=== PATIENT | female | born 1955 | race Caucasian/White ===

== ENCOUNTER → 2021-04-14 14:32 | Outpatient (CLI) | payer MEDICARE, SELFPAY ==
[2021-04-14 14:34] LABS: Bacteria 0 SEEN /hpf (None Seen); Mucous, Urine 0 SEEN /hpf (<or=2+); Red Blood Cells-Urine 0 SEEN /hpf (0-5); Squamous Epithelial Cells - UA 0 SEEN /hpf (5-10); White Blood Cells 0 SEEN /hpf (0-5)
[2021-04-14 16:47] LABS: Absolute Lymphocyte Count 1.05 X10^3/uL (0.83-4.51); Absolute Neutrophil Count 4.7 X10^3/uL (2.0-7.7); Basophil# 0.04 X10^3/uL; Basophil% 0.6 % (0-1); Eosinophil# 0.06 X10^3/uL; Eosinophils% 0.9 % (0-5); Hematocrit 39.9 % (37-47); Lymphocyte # 1.05 X10^3/ul (0.83-4.51); Lymphocyte % 16.5 % (19-41); Mean Corp Hgb Conc 32.6 g/dL (32-36); Mean Corpuscular Hgb 30.2 pg (27.0-32.0); Mean Corpuscular Volume 92.6 fL (81-99); Mean Platelet Vol. 11.7 fl (6.2-12.0); Monocyte# 0.51 X10^3/uL; NRBC Flagged by Analyzer 0 % (0-5); Neutrophil # 4.68 X10^3/uL (2.7-7.7); Neutrophil % 73.7 % (47-70); Platelet Count 275 K/mm3 (150-450); RBC Distribution Width CV 14.3 % (11.6-14.6); RBC Distribution Width SD 49.1 fl (35.1-43.9); Red Blood Count 4.31 M/mm3 (4.2-5.4); White Blood Count 6.4 K/mm3 (4.4-11.0)
[2021-04-14 16:50] LABS: Color, Urine Yellow (Yellow); Glucose, Dipstick Normal (Normal); Ketone-Dipstick Negative (Negative); Leukocyte Esterase-Dipstick Negative /ul (Negative); Nitrite-Dipstick Negative (Negative); Occult Blood-Urine Negative /ul (Negative); Protein-Dipstick Negative (Negative); Urine Bilirubin Dipstick Negative (Negative); Urine Clarity Clear (Clear); Urine Urobilinogen Normal (Normal); Urine pH 6.5 (5.0 - 8.0)
[2021-04-14 17:25] LABS: ALB/GLOB Ratio 1.3 RATIO (0.9-2.4); AST(SGOT) 18 U/L (15-37); Alanine Aminotransfer ALT/SGPT 28 U/L (13-56); Albumin, Serum 3.9 g/dL (3.2-5.0); Alkaline Phosphatase 100 U/L (45-117); Anion Gap 4 (5-15); BUN 15 mg/dL (7-18); Calcium,Total 8.9 mg/dL (8.5-10.1); Chloride 106 mmol/L (98-107); Creatinine, Serum 0.94 mg/dL (0.55-1.02); EST Glomerular Filtration Rate 63 mL/min (>60); Est Glom Filt Rate - Afr Amer 77 mL/min (>60); Globulin 3.1 g/dL (2.2-4.2); Glucose 123 mg/dL (74-106); Potassium 3.8 mmol/L (3.5-5.1); Sodium Level 139 mmol/L (136-145); Thyroid Stim Hormone (TSH) 0.29 uIU/mL (0.358-3.74)
[2021-04-14 17:26] LABS: Vitamin D,25 Hydroxy 60.8 ng/mL
== END ==
PROVIDERS: PCP Internal Medicine; Visit Provider Physician Assistant
DX: Z13.29 Encounter for screening for other suspected endocrine disorder (principal); K57.92 Diverticulitis of intestine, part unspecified, without perforation or abscess without bleeding; M85.80 Other specified disorders of bone density and structure, unspecified site; E56.9 Vitamin deficiency, unspecified; R53.83 Other fatigue; R10.9 Unspecified abdominal pain
CPT/HCPCS: 36415; 80053; 81001; 82306; 84443; 85025

== ENCOUNTER → 2021-05-13 11:18 | Outpatient (CLI) | payer MEDICARE, SELFPAY ==
[2021-05-13 13:04] LABS: Free T3 2.5 pg/mL (2.18-3.98); T4 Free Direct 1.43 ng/dL (0.76-1.46); Thyroid Stim Hormone (TSH) 0.34 uIU/mL (0.358-3.74)
== END ==
PROVIDERS: PCP Internal Medicine; Referring Provider Physician Assistant; Visit Provider Physician Assistant
DX: R79.89 Other specified abnormal findings of blood chemistry (principal); R53.83 Other fatigue
CPT/HCPCS: 36415; 84439; 84443; 84481

== ENCOUNTER 2021-07-16 15:20 | Outpatient (CLI) | payer MEDICARE, SELFPAY ==
--- NOTE | 2021-07-16 15:22 | BI_ITS ---
MAMMOGRAPHY - BILATERAL SCREENING REASON FOR EXAM: Female, 66 years old. Routine annual screening examination. PERTINENT HISTORY: Mother with breast cancer. Aunt with breast cancer. TECHNIQUE: Digital bilateral breast rohan (3D mammographic acquisition) in the CC and MLO projections. 2-D mediolateral oblique (MLO) and craniocaudad (CC) views of both breasts were obtained. CAD: Full Field Digital Mammography with Computer Added Detection was performed. COMPARISON: Comparison is made with prior abdomen examination dated 06/20/2020. FINDINGS: Breast Composition: The breasts are extremely dense, which lowers the sensitivity of mammography. There are no dominant masses or suspicious calcifications. No other significant abnormalities are identified. There has been no significant change since the prior study. BI/SCRN MAMM (CAD)W/ROHAN BILAT IMPRESSION: Stable bilateral screening mammogram. Yearly follow-up mammogram recommended. (A) ASSESSMENT CATEGORY: BIRADS Category 1: Negative. A letter regarding these results will be sent to the patient by the facility within 30 days. Approximately 10% of breast cancers are not detected by mammography. A normal mammogram should not delay biopsy of a clinically suspicious abnormality. [id number] Electronically Signed: Feroz Sears MD at 14:44 EST ,
== END 2021-07-16 23:59 | disposition home or self-care (01) ==
LOC: OPBI 15:20
PROVIDERS: PCP Internal Medicine; Referring Provider Physician Assistant; Visit Provider Physician Assistant
DX: Z12.31 Encounter for screening mammogram for malignant neoplasm of breast (principal); Z80.3 Family history of malignant neoplasm of breast
CPT/HCPCS: 77063; 77067

== ENCOUNTER 2021-08-05 09:50 | Outpatient (CLI) | payer MEDICARE, SELFPAY ==
--- NOTE | 2021-08-05 09:55 | EKG12_ITS ---
Test Reason : PRE OP Blood Pressure : / mmHG Vent. Rate : 070 BPM Atrial Rate : 070 BPM P-R Int : 110 ms QRS Dur : 064 ms QT Int : 388 ms P-R-T Axes : 072 -16 068 degrees QTc Int : 419 ms Sinus rhythm with short MD Biatrial enlargement Abnormal ECG Confirmed by KAY BURNHAM, CAESAR ([id number]), senior editor ELIA PATHAK ([id number]) on 08/07/2021 1:16:49 PM Referred By: Cassandra Garcia Confirmed By:CAESAR VILLANUEVA MD
== END 2021-08-05 23:59 | disposition home or self-care (01) ==
LOC: PSN 09:53
PROVIDERS: PCP Internal Medicine; Referring Provider Physician Assistant; Visit Provider Physician Assistant
DX: F41.9 Anxiety disorder, unspecified (principal); F32.A Depression, unspecified; R00.2 Palpitations; R03.0 Elevated blood-pressure reading, without diagnosis of hypertension
CPT/HCPCS: 93005

== ENCOUNTER 2021-09-03 13:51 | Outpatient (CLI) | payer MEDICARE, SELFPAY ==
--- NOTE | 2021-09-03 13:53 | ECHOD_ITS ---
Reason For Study: HTN, Abn EKG Procedure This was a 2D Doppler, Color Flow transthoracic echocardiogram. Patient refused IV for bubble study. Exam performed in department. Left Ventricle Normal left ventricle. Left ventricular systolic function is normal. The estimated ejection fraction is 65 %. Stage 1 diastolic dysfunction. No regional wall motion abnormalities noted. Right Ventricle Normal RV size. Normal systolic function. Atria Normal left atrium. Normal right atrium. Mitral Valve Normal mitral valve. Tricuspid Valve Normal tricuspid valve. Aortic Valve Trisinus/trileaflet aortic valve. Normal aortic valve. Pulmonic Valve Normal pulmonic valve. Great Vessels Normal aortic root. The pulmonary artery is normal size. Normal inferior vena cava. Pericardium/Pleural No pericardial effusion. MMode/2D Measurements & Calculations LVIDd: 4.1 cm IVSd: 0.87 cm Ao root diam: 2.7 cm LVIDs: 2.3 cm LVPWd: 0.85 cm RVDd: 2.8 cm FS: 45.6 % LAV(MOD-bp): 37.6 ml LVAd ap4: 16.5 cm2 SV(MOD-sp4): 27.2 ml LAV(MOD-bp) Indexed: 24.7 ml/m2 LVLd ap4: 5.6 cm LAV(MOD-sp2): 36.7 ml EDV(MOD-sp4): 41.4 ml LAV(MOD-sp4): 36.8 ml EDV(sp4-el): 41.7 ml LVAs ap4: 8.6 cm2 LVLs ap4: 4.6 cm ESV(MOD-sp4): 14.1 ml ESV(sp4-el): 13.7 ml EF(MOD-sp4): 65.8 % EF(sp4-el): 67.1 % SV(sp4-el): 27.9 ml LA A4 area: 14.6 cm2 LA dimension(2D): 3.2 cm RA A4 area: 11.4 cm2 Doppler Measurements & Calculations MV E max d[place]: 61.5 cm/sec Lat Peak E' [place]: 5.8 cm/sec Med Peak E' [place]: 4.8 cm/sec MV A max [place]: 120.2 cm/sec E/E' lat: 10.6 E/E' med: 12.7 MV E/A: 0.51 Ao V2 max: 144.9 cm/sec LV V1 max: 119.7 cm/sec PA V2 max: 111.7 cm/sec Ao max P.4 mmHg LV V1 max P.7 mmHg Ao V2 mean: 97.8 cm/sec Ao mean P.2 mmHg Ao V2 VTI: 29.9 cm PI end-d dallas: 65.5 cm/sec TR max d[place]: 251.8 cm/sec TR max P.4 mmHg ECHO/Echo Complete Interpretation Summary Normal left ventricle. Left ventricular systolic function is normal. The estimated ejection fraction is 65 %. Stage 1 diastolic dysfunction. Structurally normal valves. Ordering Physician: Cassandra Garcia Referring Physician: Laura Boswell Performed By: Julia Perry, ALY, RVT
== END 2021-09-03 23:59 | disposition home or self-care (01) ==
LOC: CVS 13:52
PROVIDERS: PCP Internal Medicine; Referring Provider Physician Assistant; Visit Provider Physician Assistant
DX: I10 Essential (primary) hypertension (principal); R94.31 Abnormal electrocardiogram [ECG] [EKG]
CPT/HCPCS: 93306

== ENCOUNTER 2021-09-11 10:59 | Outpatient (CLI) | payer MEDICARE, SELFPAY ==
[2021-09-11 12:40] LABS: Free T3 2.7 pg/mL (2.18-3.98); T4 Free Direct 1.43 ng/dL (0.76-1.46); Thyroid Stim Hormone (TSH) 0.33 uIU/mL (0.358-3.74)
== END 2021-09-11 23:59 | disposition home or self-care (01) ==
LOC: BIMLAB 11:00
PROVIDERS: PCP Internal Medicine; Referring Provider Physician Assistant; Visit Provider Physician Assistant
DX: I10 Essential (primary) hypertension (principal); R94.6 Abnormal results of thyroid function studies
CPT/HCPCS: 36415; 84439; 84443; 84481

== ENCOUNTER → 2021-11-21 | Outpatient (CLI) | payer MEDICARE, SELFPAY ==
--- NOTE | 2021-11-21 12:43 | STRESSREP_ITS ---
Stress Test Report Date: 11-21-2021 Procedure: Exercise tolerance test Indications: Chest pain; palpitations Consent: Per the patient Procedure: The patient exercised on a Heraclio protocol for 6 minutes completing Stage II achieving a peak heart rate of 134 bpm (87% predicted maximal heart rate) with a peak blood pressure 160/66 mmHg and a peak MET capacity of approximately 7 MET's. The baseline ECG demonstrated normal sinus rhythm. The peak exercise ECG demonstrated approximately 0.[address] segment depression in leads II, III, aVF, and V4 through V6 with resolution towards baseline in recovery. There was an isolated PVC during recovery. The functional capacity was considered good. The patient had no complaint of chest discomfort during exercise or recovery. The examination was discontinued secondary to dyspnea. Impression: 1. Technically adequate (percent predicted maximal heart rate greater than 85%) exercise tolerance test 2. Peak exercise ECG with with approximately 0.[address] segment depression in leads II, III, aVF, and V4 through V6 with resolution towards baseline in recovery 3. There was an isolated PVC during recovery This note was generated with [employer] software. It may contain incorrect words, spelling, and punctuation that were not noted in checking the note before signing.
== END | disposition home or self-care (01) ==
LOC: CVS 09:44
PROVIDERS: PCP Internal Medicine; Referring Provider Internal Medicine Cardiovascular Disease; Visit Provider Internal Medicine Cardiovascular Disease
DX: R94.31 Abnormal electrocardiogram [ECG] [EKG] (principal); R07.9 Chest pain, unspecified; R00.2 Palpitations; I10 Essential (primary) hypertension
CPT/HCPCS: 93017

== ENCOUNTER → 2021-11-24 | Outpatient (CLI) | payer MEDICARE, SELFPAY | END | disposition home or self-care (01) | LOC: PSN 08:21 | PROVIDERS: PCP Internal Medicine; Referring Provider Internal Medicine Cardiovascular Disease; Visit Provider Internal Medicine Cardiovascular Disease | DX: R07.9 Chest pain, unspecified (principal); R00.2 Palpitations; R94.31 Abnormal electrocardiogram [ECG] [EKG]; I10 Essential (primary) hypertension | CPT/HCPCS: 93225; 93226 ==

== ENCOUNTER → 2021-11-25 | Outpatient (CLI) | payer MEDICARE, SELFPAY ==
[2021-11-25 12:57] LABS: HIV - WCH Non-Reactive (Nonreactive); Syphilis Antibodies Non-reactive
[2021-11-26 11:08] LABS: HEPATITIS B SURFACE AG Negative (Negative); Hepatitis B Core Ab Total Negative (Negative); Hepatitis C Ab 0.1 s/co ratio (0.0-0.9)
[2021-11-27 18:16] LABS: HSV 1 IgG < 0.91 index (0.00-0.90); HSV 2 IgG < 0.91 index (0.00-0.90); Hep B Surface Antibodies Non Reactive (.)
== END | disposition home or self-care (01) ==
LOC: BIMLAB 10:36
PROVIDERS: PCP Internal Medicine; Visit Provider Physician Assistant
DX: Z20.6 Contact with and (suspected) exposure to human immunodeficiency virus [HIV] (principal); Z20.2 Contact with and (suspected) exposure to infections with a predominantly sexual mode of transmission; Z11.3 Encounter for screening for infections with a predominantly sexual mode of transmission
CPT/HCPCS: 36415; 86695; 86696; 86703; 86704; 86705; 86706; 86707; 86780; 86803; 87340; 87350

== ENCOUNTER → 2022-01-30 | Outpatient (CLI) | payer MEDICARE, SELFPAY | END | disposition home or self-care (01) | LOC: LABSPEC 15:41 | PROVIDERS: PCP Internal Medicine; Referring Provider Physician Assistant; Visit Provider Physician Assistant | DX: R19.7 Diarrhea, unspecified (principal) | CPT/HCPCS: 87635; U0003; U0005 ==

== ENCOUNTER → 2022-02-02 | Outpatient (CLI) | payer MEDICARE, SELFPAY | END | disposition home or self-care (01) | LOC: LABSPEC 08:48 | PROVIDERS: PCP Internal Medicine; Referring Provider Physician Assistant; Visit Provider Physician Assistant | DX: R19.7 Diarrhea, unspecified (principal) | CPT/HCPCS: 82274; 83630; 87493; 87506 ==

== ENCOUNTER → 2022-03-13 | Outpatient (CLI) | payer MEDICARE, SELFPAY | END | disposition home or self-care (01) | PROVIDERS: PCP Internal Medicine; Referring Provider Physician Assistant; Visit Provider Physician Assistant | DX: K58.0 Irritable bowel syndrome with diarrhea (principal); Z86.19 Personal history of other infectious and parasitic diseases | CPT/HCPCS: 82274; 83630; 87493 ==

== ENCOUNTER → 2022-05-20 | Outpatient (CLI) | payer MEDICARE, SELFPAY ==
--- NOTE | 2022-05-20 09:57 | BD_ITS ---
STUDY: DUAL ENERGY X-RAY ABSORPTIOMETRY / DXA REASON FOR EXAM: Female, 67 years old. Screening for osteoporosis TECHNIQUE: Bone Mineral Density (BMD) measurements of lumbar spine and bilateral hips were obtained. COMPARISON: None. FINDINGS: Lumbar Spine (L1-L4): g/cm2 (0.785) / T-score (-2.4) / Z-score (-0.4) Findings are suggestive of osteopenia with a high fracture risk. Left Femur Total: g/cm2 (0.662) / T-score (-2.3) / Z-score (-0.9) Left Femoral Neck: g/cm2 (0.578) / T-score (-2.4) / Z-score (-0.8) Right Femur Total: g/cm2 (0.674) / T-score (-2.2) / Z-score (-0.8) Right Femoral Neck: g/cm2 (0.537) / T-score (-2.8) / Z-score (-1.1) BD/Dexa Bone Density Study IMPRESSION: The patient is considered osteoporotic as outlined below according to World Flash Organization (WHO) criteria with a high fracture risk. Reference Information: The T-score is the number of standard deviations above or below the standard which is normal for young adults at their peak bone mineral density. The World Health Organization (WHO) interprets the T-scores as follows: Above -1 Normal bone density Between -1 and -2.5 Osteopenia Equal to / or below -2.5 Osteoporosis As a practical clinical guideline, osteopenia may be graded as follows: Mild -1 through -1.5 Moderate -1.6 through -2.0 Severe -2.1 through -2.4 The Z-score is the number of standard deviations above or below age-matched controls. A Z-score of less than -1.5 would be considered abnormal. References: 1. NIH Osteoporosis and Related Bone Diseases www osteo.org 2. International Society for Clinical Densitometry www iscd.org 3. National Osteoporosis Foundation www nof.org Electronically Signed: Feroz Sears MD at 10:51 EST ,
== END | disposition home or self-care (01) ==
LOC: OPBD 09:50
PROVIDERS: PCP Physician Assistant; Visit Provider Physician Assistant
DX: Z78.0 Asymptomatic menopausal state (principal); M81.0 Age-related osteoporosis without current pathological fracture
CPT/HCPCS: 77080

== ENCOUNTER → 2022-05-20 | Outpatient (CLI) | payer MEDICARE, SELFPAY | END | disposition home or self-care (01) | LOC: OPBD 09:46 | PROVIDERS: PCP Physician Assistant; Visit Provider Physician Assistant | DX: Z00.00 Encounter for general adult medical examination without abnormal findings (principal) ==

== ENCOUNTER → 2022-05-21 | Outpatient (CLI) | payer MEDICARE, SELFPAY | END | disposition home or self-care (01) | LOC: LABSPEC 10:55 | PROVIDERS: PCP Physician Assistant; Referring Provider Physician Assistant; Visit Provider Physician Assistant | DX: R68.89 Other general symptoms and signs (principal); Z20.822 Contact with and (suspected) exposure to COVID-19 | CPT/HCPCS: 87635; U0003; U0005 ==

== ENCOUNTER → 2022-07-02 | Outpatient (CLI) | payer MEDICARE, SELFPAY ==
[2022-07-02 12:23] LABS: Absolute Lymphocyte Count 1.21 X10^3/uL (0.83-4.51); Absolute Neutrophil Count 3.5 X10^3/uL (2.0-7.7); Basophil# 0.06 X10^3/uL; Basophil% 1.1 % (0-1); Eosinophil# 0.21 X10^3/uL; Eosinophils% 3.8 % (0-5); Hematocrit 43.3 % (37-47); Lymphocyte # 1.21 X10^3/ul (0.83-4.51); Lymphocyte % 21.7 % (19-41); Mean Corp Hgb Conc 32.3 g/dL (32-36); Mean Corpuscular Hgb 30.7 pg (27.0-32.0); Mean Platelet Vol. 11.5 fl (6.2-12.0); Monocyte# 0.54 X10^3/uL; Monocyte% 9.7 % (0-10); NRBC Flagged by Analyzer 0 % (0-5); Neutrophil # 3.52 X10^3/uL (2.7-7.7); Neutrophil % 63.2 % (47-70); Platelet Count 252 K/mm3 (150-450); RBC Distribution Width CV 12.9 % (11.6-14.6); Red Blood Count 4.56 M/mm3 (4.2-5.4); White Blood Count 5.6 K/mm3 (4.4-11.0)
[2022-07-02 13:42] LABS: ALB/GLOB Ratio 1.3 RATIO (0.9-2.4); AST(SGOT) 25 U/L (15-37); Alanine Aminotransfer ALT/SGPT 29 U/L (13-56); Albumin, Serum 4.2 g/dL (3.2-5.0); Alkaline Phosphatase 101 U/L (45-117); Anion Gap 10 (5-15); BUN 13 mg/dL (7-18); BUN/Creat Ratio 15.8 RATIO (10-20); Calcium,Total 9.5 mg/dL (8.5-10.1); Chloride 102 mmol/L (98-107); Cholesterol 198 mg/dL (200); Creatinine, Serum 0.82 mg/dL (0.55-1.02); EST Glomerular Filtration Rate 73 mL/min (>60); Est Glom Filt Rate - Afr Amer 88 mL/min (>60); Globulin 3.2 g/dL (2.2-4.2); Glucose 94 mg/dL (74-106); High Density Lipoprotein 107 mg/dL; Potassium 3.7 mmol/L (3.5-5.1); Protein, Total 7.4 g/dL (6.4-8.2); Sodium Level 141 mmol/L (136-145); T4 Free Direct 1.44 ng/dL (0.76-1.46); Thyroid Stim Hormone (TSH) 0.49 uIU/mL (0.358-3.74); Triglycerides 114 mg/dL; Very Low Density Lipoprotein 23 mg/dL (5-40)
== END | disposition home or self-care (01) ==
LOC: BIMLAB 10:33
PROVIDERS: PCP Physician Assistant; Referring Provider Physician Assistant; Visit Provider Physician Assistant
DX: I10 Essential (primary) hypertension (principal); E55.9 Vitamin D deficiency, unspecified; M81.0 Age-related osteoporosis without current pathological fracture
CPT/HCPCS: 36415; 80053; 80061; 82306; 84439; 84443; 85025

== ENCOUNTER → 2022-07-20 | Outpatient (CLI) | payer MEDICARE, SELFPAY ==
--- NOTE | 2022-07-20 11:01 | BI_ITS ---
MAMMOGRAPHY - BILATERAL SCREENING REASON FOR EXAM: Female, 67 years old. Routine annual screening examination. PERTINENT HISTORY: Mother with breast cancer. Aunt with breast cancer. TECHNIQUE: Digital bilateral breast rohan (3D mammographic acquisition) in the CC and MLO projections. 2-D mediolateral oblique (MLO) and craniocaudad (CC) views of both breasts were obtained. CAD: Full Field Digital Mammography with Computer Added Detection was performed. COMPARISON: Comparison is made with prior study dated 07/16/2021. FINDINGS: Breast Composition: The breasts are extremely dense, which lowers the sensitivity of mammography. There are no dominant masses or suspicious calcifications. No other significant abnormalities are identified. There has been no significant change since the prior study. BI/SCRN MAMM (CAD)W/ROHAN BILAT IMPRESSION: Stable bilateral screening mammogram. Yearly follow-up mammogram recommended. (A) ASSESSMENT CATEGORY: BIRADS Category 1: Negative. A letter regarding these results will be sent to the patient by the facility within 30 days. Approximately 10% of breast cancers are not detected by mammography. A normal mammogram should not delay biopsy of a clinically suspicious abnormality. [id number] Electronically Signed: Feroz Sears MD at 12:22 EST ,
== END | disposition home or self-care (01) ==
PROVIDERS: PCP Physician Assistant; Referring Provider Physician Assistant; Visit Provider Physician Assistant
DX: Z12.31 Encounter for screening mammogram for malignant neoplasm of breast (principal)
CPT/HCPCS: 77063; 77067

== ENCOUNTER → 2022-12-10 | Outpatient (CLI) | payer MEDICARE, SELFPAY ==
[2022-12-10 10:39] LABS: Bacteria 0 SEEN /hpf (None Seen); Mucous, Urine 0 SEEN /hpf (<or=2+); Red Blood Cells-Urine 0 SEEN /hpf (0-5); Squamous Epithelial Cells - UA 0 SEEN /hpf (5-10); White Blood Cells 0 SEEN /hpf (0-5)
[2022-12-10 12:10] LABS: Absolute Lymphocyte Count 0.85 X10^3/uL (0.83-4.51); Absolute Neutrophil Count 4.8 X10^3/uL (2.0-7.7); Basophil# 0.03 X10^3/uL; Basophil% 0.5 % (0-1); Eosinophil# 0.09 X10^3/uL; Eosinophils% 1.4 % (0-5); Hematocrit 40.5 % (37-47); Hemoglobin 13.6 g/dL (12.0-15.0); Lymphocyte # 0.85 X10^3/ul (0.83-4.51); Lymphocyte % 12.9 % (19-41); Mean Corp Hgb Conc 33.6 g/dL (32-36); Mean Corpuscular Hgb 31.6 pg (27.0-32.0); Mean Corpuscular Volume 94.2 fL (81-99); Mean Platelet Vol. 11.1 fl (6.2-12.0); Monocyte# 0.86 X10^3/uL; NRBC Flagged by Analyzer 0 % (0-5); Neutrophil # 4.75 X10^3/uL (2.7-7.7); Neutrophil % 71.9 % (47-70); Platelet Count 284 K/mm3 (150-450); RBC Distribution Width CV 12.4 % (11.6-14.6); RBC Distribution Width SD 43.3 fl (35.1-43.9); White Blood Count 6.6 K/mm3 (4.4-11.0)
[2022-12-10 12:12] LABS: Color, Urine Yellow (Yellow); Glucose, Dipstick Normal (Normal); Ketone-Dipstick 5 mg/dl (Negative); Leukocyte Esterase-Dipstick Negative /ul (Negative); Nitrite-Dipstick Negative (Negative); Occult Blood-Urine Negative /ul (Negative); Protein-Dipstick 15 mg/dl (Negative); Urine Bilirubin Dipstick Negative (Negative); Urine Clarity Sl. Cloudy (Clear); Urine Urobilinogen Normal (Normal)
[2022-12-10 12:47] LABS: AST(SGOT) 26 U/L (15-37); Alanine Aminotransfer ALT/SGPT 31 U/L (13-56); Albumin, Serum 3.8 g/dL (3.2-5.0); Alkaline Phosphatase 94 U/L (45-117); Anion Gap 7 (5-15); BUN 11 mg/dL (7-18); Calcium,Total 9.8 mg/dL (8.5-10.1); Chloride 104 mmol/L (98-107); Creatinine, Serum 0.79 mg/dL (0.55-1.02); EST Glomerular Filtration Rate 77 mL/min (>60); Est Glom Filt Rate - Afr Amer 93 mL/min (>60); Globulin 3.9 g/dL (2.2-4.2); Glucose 124 mg/dL (74-106); Potassium 3.9 mmol/L (3.5-5.1); Protein, Total 7.7 g/dL (6.4-8.2); Sodium Level 140 mmol/L (136-145)
== END | disposition home or self-care (01) ==
LOC: BIMLAB 10:39
PROVIDERS: PCP Internal Medicine; Referring Provider Internal Medicine; Visit Provider Internal Medicine
DX: R10.84 Generalized abdominal pain (principal)
CPT/HCPCS: 36415; 80053; 81001; 85025

== ENCOUNTER 2022-12-26 06:23 | Observation (INO) | payer MEDICARE, SELFPAY ==
[2022-12-26] VITALS (11 sets, daily range): BP systolic 144–190; BP diastolic 46–64; PULSE 90–107; RESP 15–20; TEMP 37.1–38.3; O2SAT 90–98; BMI 23.1; BMI 22.9
--- NOTE | 2022-12-26 07:15 | RAD_ITS ---
HISTORY: cough. TECHNIQUE: XR Chest 1 View. COMPARISON: None. FINDINGS: CARDIOMEDIASTINAL BORDERS: Cardiac silhouette within normal limits in size. Mediastinal contour unremarkable with calcification of the aortic knob. LUNGS: Radiographically clear. PLEURA: No pleural effusion or pneumothorax seen. OSSEOUS STRUCTURES: Mild degenerative change. RAD/Chest 1 View (Portable) IMPRESSION: No acute cardiopulmonary process identified. Electronically Signed: Elizabeth Irwin MD at 8:20 EDT ,
--- NOTE | 2022-12-26 07:15 | EKG12_ITS ---
Test Reason : GEN ILLNESS Blood Pressure : / mmHG Vent. Rate : 105 BPM Atrial Rate : 105 BPM P-R Int : 124 ms QRS Dur : 074 ms QT Int : 342 ms P-R-T Axes : 076 -19 069 degrees QTc Int : 452 ms Sinus tachycardia Right atrial enlargement Borderline ECG Confirmed by KAY BURNHAM, CAESAR ([id number]), technical editor ELIA PATHAK ([id number]) on 12/28/2022 12:30:42 PM Referred By: Confirmed By:CAESAR VILLANUEVA MD
--- NOTE | 2022-12-26 07:18 | EX.ED.DYSGE1 ---
HPI History of Present Illness Chief Complaint: General Illness Narrative Narrative: 67-year-old female presenting with fever, chills, myalgias, cough. She states its been going on since which is 3 to 4 days. Patient states that she does feel short of breath and does have a cough. Patient with recent travel to [facility] this last week. She states that prior to going she had some GI issues but was not this sick. She does not have any chest pain. She has a history of hypertension, asthma, anxiety. Patient denies any abdominal pain but has been having a lot of vomiting. She is unable to hold on her meds. She has not had any urinary complaints. [facility] Medical History Abnormal EKG Anxiety and depression Asthma C. difficile colitis Diverticulitis Essential hypertension GI bleed Skin cancer Home Medications calcium carbonate 600 mg calcium (1,500 mg) tablet (Calcium) 600 mg PO DAILY 02/25/21 [History Last Taken Unknown] cholecalciferol (vitamin D3) 25 mcg (1,000 unit) capsule 4,000 unit PO DAILY 11/13/21 [History Last Taken Unknown] promethazine 12.5 mg tablet 12.5 mg PO TID PRN nausea and vomiting #20 tabs 01/23/22 [Rx Last Taken Unknown] fluticasone propionate 110 mcg/actuation HFA aerosol inhaler (Flovent HFA) 1 puff inhalation .daily #12 grams 04/15/22 [Rx Last Taken Unknown] inhalational spacing device (BreatheRite MDI Spacer) #2 ea 07/02/22 [Rx Last Taken Unknown] amlodipine 5 mg tablet 5 mg PO DAILY #90 tabs 10/12/22 [Rx Last Taken Unknown] escitalopram oxalate 10 mg tablet 10 mg PO DAILY 12/26/22 [History Last Taken Unknown] Allergy/AdvReac Type Severity Reaction Status Date / Time codeine AdvReac Unknown nausea and Verified 12/26/22 06:27 vomiting Family History Father Asthma Myocardial infarction, Onset Age: 50 Heart disease Hypertension Hyperlipemia Mother Breast cancer Cancer mouth Surgical History History of colon resection History of hysterectomy Status post surgical removal of malignant neoplasm of skin Social History household members: none current occupational status: retired current occupation: professor at [employer], retired in 2018, taught social work Smoking Status: Never smoker Electronic Cigarette Use: not used alcohol intake: current alcohol intake frequency: a few times a month Alcohol type: wine substance use type: does not use caffeine: Yes Type: coffee what type of physical activity do you participate in: weight training and other details: cardio machines frequency: 3-4 times per week seatbelt use: always do you feel safe at home: Yes ROS ROS ED Constitutional Constitutional ED: Reports chills and fever(s) Eyes Eyes: Denies change in vision ENT ENT ED: Denies rhinorrhea or sore throat Cardiovascular Cardiovascular: Denies chest pain Respiratory/Chest Respiratory/Chest: Reports cough and dyspnea Gastrointestinal Gastrointestinal: Reports nausea and vomiting; Denies abdominal pain Genitourinary Genitourinary ED: Denies dysuria or hematuria Musculoskeletal Musculoskeletal: Reports myalgias; Denies arthralgias Integumentary Denies abscess or Abrasions Neurologic Neurologic: Reports headache(s); Denies paresthesias Psychiatric Psychiatric: Denies anxiety or depression EXAM Physical Exam Const Vital Signs: 12/26/22 06:23 12/26/22 06:30 12/26/22 07:58 Temperature 100.2 F H Temperature Source Oral Pulse Rate 107 H Respiratory Rate 20 H Respiratory Effort Normal Respiratory Pattern Normal Blood Pressure 190/60 H Blood Pressure Mean 103 Pulse Ox 98 Oxygen Delivery Method Room Air Room Air 12/26/22 08:54 12/26/22 09:48 12/26/22 09:48 Temperature 99.7 F H Temperature Source Oral Pulse Rate 103 H 96 95 Respiratory Rate 17 15 15 Respiratory Effort Respiratory Pattern Blood Pressure 151/50 H 144/47 H 144/47 H Blood Pressure Mean 83 79 79 Pulse Ox 94 94 94 Oxygen Delivery Method Room Air Room Air Room Air Positive well nourished General Appearance ED: NAD HEENT Reports moist mucous membranes Eyes PERRL and EOMs intact bilaterally Resp normal respiratory effort and clear to auscultation bilaterally Auscultation: Negative for rales, rhonchi or wheezes Cardio Rate: tachycardic GI normal to inspection, nondistended, normoactive bowel sounds Neuro oriented x3 and CN's II-XII intact bilaterally Sensorium / Orientation: alert Motor Exam: strength 5/5 throughout Psych mental status grossly normal Skin no wounds and skin turgor normal MDM MDM MDM Narrative Medical decision making narrative: 67-year-old female presenting with cough, shortness of breath, fever, chills, myalgias as well as nausea and vomiting. She denies any chest pain. Differential includes CHF, ACS, COVID, influenza, pneumonia, dehydration, electrolyte abnormalities, PE, UTI. Given the patient is tachycardic, tachypneic, febrile sepsis blood work is obtained. We will also obtain a D-dimer given the recent travel and shortness of breath. Patient tested for COVID and influenza. Patient given a liter of normal saline. She is given 1 g of Tylenol. She was given Zofran for nausea. CBC does not show significant leukocytosis with a white blood cell 6.6 which is unchanged from her previous lab work this month. Her hemoglobin today is 11.9 and it was 13 6 on her last lab work this was 12/10/2022. Patient denies any black or bloody stools. She does states she has a history of lower GI bleed but she had red blood from her rectum at that time. Because of the hemoglobin drop I did obtain a Hemoccult which was positive. Patient was typed and screened. I do not believe she needs blood currently. Discussed with Dr. Martinez who is amenable to keeping her here at [facility]. BMP with normal electrolytes. Slight prerenal azotemia. Glucose 132. No anion gap. Total bilirubin slightly elevated at 1.2 and AST is 76 which is nonspecific. EKG is sinus tachycardia at a rate of 105 bpm without sign of ischemic change or ectopy. High-sensitivity troponin was initially 86 and delta troponin 134. Patient does denies having any chest pain. She does complain of some shortness of breath and cough. Chest x-ray my interpretation shows no acute process. The radiologist interprets this and agrees. Rapid COVID and influenza were negative. Patient was ambulated across the room and noted to be 85% on room air ambulating. Her fever has come down with Tylenol to 987. She is feeling improved of her IV fluids and Zofran. D-dimer was negative. At this point I spoke with hospitalist for admission. Impression: 1. Nausea/vomiting 2. upper GI bleed 3. Acute blood loss anemia 4. Elevated troponin 5. Hypoxia Lab Data Labs: Laboratory Results - last 24 hr 12/26/22 12/26/22 12/26/22 06:42 06:47 07:50 WBC 6.6 RBC 3.82 L Hgb 11.9 L Hct 35.6 L MCV 93.2 MCH 31.2 MCHC 33.4 RDW Std Deviation 40.7 RDW Coeff of Tulio 11.9 Plt Count 219 MPV 12.1 H Immature Gran % (Auto) 0.200 Neut % (Auto) 78.1 H Lymph % (Auto) 3.6 L Izard % (Auto) 17.3 H Eos % (Auto) 0.5 Baso % (Auto) 0.3 Absolute Neuts (auto) 5.1 Absolute Lymphs (auto) 0.24 L Nucleated RBC % 0 Differential Comment SCANNED PT 13.9 INR 1.1 APTT 29.7 D-Dimer Quant (PE/DVT) 0.54 H* Sodium 141 Potassium 3.6 Chloride 108 H Carbon Dioxide 28.0 Anion Gap 5 BUN 14 Creatinine 0.62 Estim Creat Clear Calc 40.63 Est GFR (MDRD) Af Amer 123 Est GFR (MDRD) Non-Af 102 BUN/Creatinine Ratio 22.6 H Glucose 132 H Lactic Acid 1.5 Calcium 9.1 Total Bilirubin 1.20 H AST 31 ALT 76 H Alkaline Phosphatase 74 Troponin I High Sens 86 H Total Protein 6.3 L Albumin 3.2 Globulin 3.1 Albumin/Globulin Ratio 1.0 Urine Color Yellow Urine Clarity Clear Urine pH 7.0 Ur Specific Abbot 1.010 Urine Protein 30 H Urine Glucose (UA) Normal Urine Ketones 5 H Urine Occult Blood 10 H Urine Nitrite Negative Urine Bilirubin Negative Urine Urobilinogen Normal Ur Leukocyte Esterase Negative Urine RBC 0 SEEN Urine WBC 0 SEEN Ur Squamous Epith Cells 0 SEEN Amorphous Sediment 1+ Urine Bacteria 0 SEEN Urine Mucus 0 SEEN Blood Type Antibody Screen 12/26/22 12/26/22 08:45 08:50 WBC RBC Hgb Hct MCV MCH MCHC RDW Std Deviation RDW Coeff of Tulio Plt Count MPV Immature Gran % (Auto) Neut % (Auto) Lymph % (Auto) Izard % (Auto) Eos % (Auto) Baso % (Auto) Absolute Neuts (auto) Absolute Lymphs (auto) Nucleated RBC % Differential Comment PT INR APTT D-Dimer Quant (PE/DVT) Sodium Potassium Chloride Carbon Dioxide Anion Gap BUN Creatinine Estim Creat Clear Calc Est GFR (MDRD) Af Amer Est GFR (MDRD) Non-Af BUN/Creatinine Ratio Glucose Lactic Acid Calcium Total Bilirubin AST ALT Alkaline Phosphatase Troponin I High Sens 134 H* Total Protein Albumin Globulin Albumin/Globulin Ratio Urine Color Urine Clarity Urine pH Ur Specific Abbot Urine Protein Urine Glucose (UA) Urine Ketones Urine Occult Blood Urine Nitrite Urine Bilirubin Urine Urobilinogen Ur Leukocyte Esterase Urine RBC Urine WBC Ur Squamous Epith Cells Amorphous Sediment Urine Bacteria Urine Mucus Blood Type O POSITIVE Antibody Screen NEGATIVE Radiography Diagnostic Testing: Clinical Impression(s) from Imaging Studies Chest X-Ray 12/26/22 07:15 IMPRESSION: No acute cardiopulmonary process identified. Electronically Signed: Elizabteh Irwin MD at 8:20 EDT Reading Location ID and State: [facility] / [place] Tel , Service support , Discharge Plan Triage Chief Complaint: General Illness ED Provider: Ector Brown Dx/Rx/DC Orders Primary Care Provider: Milagros Andrew
[2022-12-26 07:46] LABS: Absolute Lymphocyte Count 0.24 X10^3/uL (0.83-4.51); Absolute Neutrophil Count 5.1 X10^3/uL (2.0-7.7); Basophil# 0.02 X10^3/uL; Basophil% 0.3 % (0-1); Eosinophil# 0.03 X10^3/uL; Eosinophils% 0.5 % (0-5); Hematocrit 35.6 % (37-47); Hemoglobin 11.9 g/dL (12.0-15.0); Lymphocyte # 0.24 X10^3/ul (0.83-4.51); Lymphocyte % 3.6 % (19-41); Mean Corp Hgb Conc 33.4 g/dL (32-36); Mean Corpuscular Hgb 31.2 pg (27.0-32.0); Mean Corpuscular Volume 93.2 fL (81-99); Mean Platelet Vol. 12.1 fl (6.2-12.0); Monocyte# 1.14 X10^3/uL; Monocyte% 17.3 % (0-10); NRBC Flagged by Analyzer 0 % (0-5); Neutrophil # 5.14 X10^3/uL (2.7-7.7); Neutrophil % 78.1 % (47-70); POSITIVE DIFFERENTIAL YES; Platelet Count 219 K/mm3 (150-450); RBC Distribution Width CV 11.9 % (11.6-14.6); RBC Distribution Width SD 40.7 fl (35.1-43.9); Red Blood Count 3.82 M/mm3 (4.2-5.4); White Blood Count 6.6 K/mm3 (4.4-11.0)
[2022-12-26] MEDS: 0.9% Normal Saline 1,000 ML 999 ML IV (07:50)
[2022-12-26] MEDS: Ondansetron 4 MG/2 ML Vial IV (07:51)
[2022-12-26] MEDS: Acetaminophen 500 MG Tablet 1000 MG PO (07:51)
[2022-12-26 07:52] LABS: Differential Indicated SCAN CRITERIA MET
[2022-12-26 07:59] LABS: Bacteria 0 SEEN /hpf (None Seen); Mucous, Urine 0 SEEN /hpf (<or=2+); Red Blood Cells-Urine 0 SEEN /hpf (0-5); Squamous Epithelial Cells - UA 0 SEEN /hpf (5-10); White Blood Cells 0 SEEN /hpf (0-5)
[2022-12-26 08:01] LABS: International Normalized Ratio 1.1; Partial Thromboplast Time 29.7 Seconds (24.1-36.2); Prothrombin Time (Protime)PT. 13.9 SECONDS (11.7-14.9)
[2022-12-26 08:04] LABS: AST(SGOT) 31 U/L (15-37); Alanine Aminotransfer ALT/SGPT 76 U/L (13-56); Albumin, Serum 3.2 g/dL (3.2-5.0); Alkaline Phosphatase 74 U/L (45-117); Anion Gap 5 (5-15); BUN 14 mg/dL (7-18); BUN/Creat Ratio 22.6 RATIO (10-20); Calcium,Total 9.1 mg/dL (8.5-10.1); Chloride 108 mmol/L (98-107); Creatinine, Serum 0.62 mg/dL (0.55-1.02); EST Glomerular Filtration Rate 102 mL/min (>60); Est Glom Filt Rate - Afr Amer 123 mL/min (>60); Estimated Creatinine Clearance 40.63 ml/min; Globulin 3.1 g/dL (2.2-4.2); Glucose 132 mg/dL (74-106); Potassium 3.6 mmol/L (3.5-5.1); Protein, Total 6.3 g/dL (6.4-8.2); Sodium Level 141 mmol/L (136-145); Troponin-I HS 86 pg/mL (3.0-54.0)
[2022-12-26 08:04] LABS: Lactic Acid 1.5 mmol/L (0.4-1.9)
[2022-12-26 08:06] LABS: Color, Urine Yellow (Yellow); Glucose, Dipstick Normal (Normal); Ketone-Dipstick 5 mg/dl (Negative); Leukocyte Esterase-Dipstick Negative /ul (Negative); Nitrite-Dipstick Negative (Negative); Occult Blood-Urine 10 /ul (Negative); Protein-Dipstick 30 mg/dl (Negative); Urine Bilirubin Dipstick Negative (Negative); Urine Clarity Clear (Clear); Urine Urobilinogen Normal (Normal)
[2022-12-26 08:16] LABS: Amorphous Sediment 1+
[2022-12-26 08:22] LABS: D-Dimer Quantitative (DVT/PE) 0.54 FEU/ug/m (0.27-0.49)
[2022-12-26 08:41] LABS: Differential Comment SCANNED
[2022-12-26 09:40] LABS: Troponin-I HS 134 pg/mL (3.0-54.0)
--- NOTE | 2022-12-26 10:13 | NURSING ---
109 OBS TERELETSKY GI BLEED, HYPOXIA, ANEMIA
--- NOTE | 2022-12-26 11:13 | ECHOD_ITS ---
Reason For Study: OTHER Procedure This was a 2D Doppler, Color Flow transthoracic echocardiogram. Exam performed portable in patient room. Left Ventricle Normal LV size. Mild concentric left ventricular hypertrophy. The left ventricular ejection fraction is 70 %. Stage 2 diastolic dysfunction. Right Ventricle Normal right ventricle. Atria The left atrium is mildly enlarged. Normal right atrium. Mitral Valve Trivial mitral valve insufficiency. Tricuspid Valve Mild tricuspid valve insufficiency. Right ventricular systolic pressure estimated to be 63 mmHg. Aortic Valve Normal aortic valve. Pulmonic Valve The pulmonic valve is not well visualized. Great Vessels Normal sized aortic root. Pericardium/Pleural No pericardial effusion. MMode/2D Measurements & Calculations LVIDd: 4.8 cm IVSd: 1.1 cm Ao root diam: 2.6 cm LVIDs: 3.0 cm LVPWd: 1.1 cm RVDd: 3.3 cm FS: 38.9 % LAV(MOD-bp): 61.0 ml LVAd ap4: 22.1 cm2 SV(MOD-sp4): 42.9 ml LAV(MOD-bp) Indexed: 38.7 ml/m2 LVLd ap4: 6.9 cm LAV(MOD-sp2): 57.0 ml EDV(MOD-sp4): 59.2 ml LAV(MOD-sp4): 56.2 ml EDV(sp4-el): 60.7 ml LVAs ap4: 9.9 cm2 LVLs ap4: 5.3 cm ESV(MOD-sp4): 16.3 ml ESV(sp4-el): 15.9 ml EF(MOD-sp4): 72.5 % EF(sp4-el): 73.8 % SV(sp4-el): 44.8 ml LA A4 area: 18.5 cm2 LA dimension(2D): 3.4 cm RA A4 area: 14.8 cm2 TAPSE: 2.3 cm Time Measurements MV dec time: 0.17 sec Doppler Measurements & Calculations MV E max [place]: 116.0 cm/sec Lat Peak E' [place]: 9.8 cm/sec Med Peak E' [place]: 7.7 cm/sec MV A max [place]: 131.6 cm/sec E/E' lat: 11.9 E/E' med: 15.0 MV E/A: 0.88 MV V2 max: 144.6 cm/sec Ao V2 max: 206.3 cm/sec MV max P.4 mmHg MV dec slope: 700.1 cm/sec2 Ao max P.1 mmHg MV V2 mean: 95.6 cm/sec Ao V2 mean: 135.2 cm/sec MV mean P.1 mmHg Ao mean P.5 mmHg MV V2 VTI: 37.1 cm Ao V2 VTI: 35.1 cm AV (velocity ratio): 0.81 LV V1 max: 196.5 cm/sec PA V2 max: 136.0 cm/sec TR max [place]: 363.4 cm/sec LV V1 max P.6 mmHg PA V2 mean: 98.3 cm/sec TR max P.8 mmHg LV V1 mean P.5 mmHg LV V1 mean: 118.1 cm/sec LV V1 VTI: 28.5 cm ECHO/Echo Complete Interpretation Summary Mild concentric left ventricular hypertrophy. The left ventricular ejection fraction is 70 %. Stage 2 diastolic dysfunction. Mild tricuspid valve insufficiency. Right ventricular systolic pressure estimated to be 63 mmHg. Ordering Physician: Aneudy Santillan Referring Physician: MELBA DUNBAR Performed By: Gaby Duarte RCS
[2022-12-26 12:36] LABS: Hemoglobin 11.2 g/dL (12.0-15.0)
[2022-12-26 12:59] LABS: Troponin-I HS 112 pg/mL (3.0-54.0)
[2022-12-26] MEDS: Acetaminophen 325 MG Tablet 650 MG PO ×2 (13:55→20:53)
[2022-12-26] MEDS: 0.9% Normal Saline 1,000 ML 75 ML IV (14:00)
[2022-12-26] MEDS: 0.9% Saline Lock 10 ML Syringe IV (14:00)
[2022-12-26] MEDS: guaiFENesin Dm 10 ML UDC 5 ML PO ×2 (16:16→22:26)
[2022-12-26 16:59] LABS: Hematocrit 31.4 % (37-47); Hemoglobin 10.3 g/dL (12.0-15.0)
--- NOTE | 2022-12-26 17:59 | PCM.HP.STD ---
HPI - General General Date of Admission: 12/26/22 Date of Service: 12/26/22 Chief Complaint: Nausea, vomiting, cough HPI Narrative MANOHAR VILLAFANA, is a 67 F who presents to the emergency room with complaints of nausea and vomiting over the last 24 hours along with a cough and general malaise this week. Patient denies any actual fever at home, she states she felt chilled today. Work-up in the emergency room included labs which revealed a hemoglobin of 11.9 (patient's hemoglobin earlier this month was 13.6), Hemoccult of the patient's stool was positive for blood, chemistry profile was remarkable for bilirubin of 1.2, ALT of 76, and glucose of 132. Patient's troponin was elevated initially at 86, second troponin was 134. EKG showed no signs of ischemia, patient had no complaints of any chest discomfort, the ER physician told me the patient's pulse ox dropped to 85% while ambulating but her pulse ox was normal at rest. Patient's chest x-ray showed no acute disease. The patient's medical picture is not clear to me at this time, patient will be placed in observation status on PCU, pulse ox will be monitored, hemoglobin will be monitored, I will place the patient on a PPI, if the patient drops a significant amount of hemoglobin, she will need to be seen by gastroenterology for evaluation for GI bleeding. Patient will have an echocardiogram performed due to her elevated troponin levels, admission diagnosis would be elevated troponin levels, gastroenteritis, hypoxia-etiology unclear, and anemia. FORMERLY [facility] Medical History Abnormal EKG Anxiety and depression Asthma C. difficile colitis Diverticulitis Essential hypertension GI bleed Skin cancer Home Medications calcium carbonate 600 mg calcium (1,500 mg) tablet (Calcium) 600 mg PO DAILY 02/25/21 [History Last Taken Unknown] cholecalciferol (vitamin D3) 25 mcg (1,000 unit) capsule 4,000 unit PO DAILY 11/13/21 [History Last Taken Unknown] promethazine 12.5 mg tablet 12.5 mg PO TID PRN nausea and vomiting #20 tabs 01/23/22 [Rx Last Taken Unknown] fluticasone propionate 110 mcg/actuation HFA aerosol inhaler (Flovent HFA) 1 puff inhalation .daily #12 grams 04/15/22 [Rx Last Taken Unknown] inhalational spacing device (BreatheRite MDI Spacer) #2 ea 07/02/22 [Rx Last Taken Unknown] amlodipine 5 mg tablet 5 mg PO DAILY #90 tabs 10/12/22 [Rx Last Taken Unknown] escitalopram oxalate 10 mg tablet 10 mg PO DAILY 12/26/22 [History Last Taken Unknown] Allergy/AdvReac Type Severity Reaction Status Date / Time codeine AdvReac Unknown nausea and Verified 12/26/22 06:27 vomiting Family History Father Asthma Myocardial infarction, Onset Age: 50 Heart disease Hypertension Hyperlipemia Mother Breast cancer Cancer mouth Surgical History History of colon resection History of hysterectomy Status post surgical removal of malignant neoplasm of skin Social History household members: none current occupational status: retired current occupation: professor at [employer], retired in 2018, taught social work Smoking Status: Never smoker Electronic Cigarette Use: not used alcohol intake: current alcohol intake frequency: a few times a month Alcohol type: wine substance use type: does not use caffeine: Yes Type: coffee what type of physical activity do you participate in: weight training and other details: cardio machines frequency: 3-4 times per week seatbelt use: always do you feel safe at home: Yes ROS Constitutional Constitutional: Reports chills, fatigue and malaise; Denies anorexia, change in weight, fever(s), night sweats or weakness Eyes Eyes: Denies blurry vision, change in eye color, change in vision, discharge from eye(s) or eye pain Cardiovascular Cardiovascular: Denies chest pain, claudication, dyspnea on exertion, edema, lightheadedness, orthopnea or palpitations Respiratory/Chest Respiratory/Chest: Denies cough, dyspnea, hemoptysis, productive cough, shortness of breath at rest or shortness of breath with exertion Gastrointestinal Gastrointestinal: Denies abdominal pain, constipation, diarrhea, hematemesis, hematochezia, melena, nausea or vomiting Genitourinary Genitourinary: Denies dysuria, hematuria, urinary frequency, urinary hesitancy, urinary incontinence or urinary urgency Musculoskeletal Musculoskeletal: Denies back pain, joint pain, joint stiffness, joint swelling, myalgias or neck pain Neurologic Neurologic: Denies abnormal gait, abnormal speech, confusion, dizziness, focal weakness, headache(s), loss of vision, numbness, other visual disturbances, paresthesias, syncope or tingling Psychiatric Psychiatric: Denies anxiety, cognitive impairment, depression, irritability, mood swings or suicidal ideation Endocrine Endocrinology: Denies change in body appearance, cold intolerance, excessive sweating, heat intolerance, polydipsia or polyuria Hematologic/Lymphatic Hematologic/Lymphatic: Denies none, anemia, easy bleeding, easy bruising or lymphadenopathy Allergic/Immunologic Allergic/Immunologic: Denies rhinitis, urticaria, eczemia or asthma Vital Signs Vital Signs Vital Signs: 12/26/22 06:23 12/26/22 06:30 12/26/22 07:58 Temperature 100.2 F H Temperature Source Oral Pulse Rate 107 H Respiratory Rate 20 H Respiratory Effort Normal Respiratory Pattern Normal Blood Pressure 190/60 H Blood Pressure Mean 103 Blood Pressure Source Blood Pressure Position Blood Pressure Location Pulse Ox 98 Oxygen Delivery Method Room Air Room Air 12/26/22 08:54 12/26/22 09:48 12/26/22 09:48 Temperature 99.7 F H Temperature Source Oral Pulse Rate 103 H 96 95 Respiratory Rate 17 15 15 Respiratory Effort Respiratory Pattern Blood Pressure 151/50 H 144/47 H 144/47 H Blood Pressure Mean 83 79 79 Blood Pressure Source Blood Pressure Position Blood Pressure Location Pulse Ox 94 94 94 Oxygen Delivery Method Room Air Room Air Room Air 12/26/22 10:57 12/26/22 07:01 12/26/22 16:19 Temperature 99.9 F H 98.9 F Temperature Source Oral Oral Pulse Rate 90 94 Respiratory Rate 20 H 16 Respiratory Effort Respiratory Pattern Blood Pressure 146/64 H 157/46 H Blood Pressure Mean 91 83 Blood Pressure Source Monitor Monitor Blood Pressure Position Semi-Fowlers Semi-Fowlers Blood Pressure Location Right Arm Right Arm Pulse Ox 94 96 Oxygen Delivery Method Room Air Room Air Room Air 12/26/22 16:21 Temperature 98.9 F Temperature Source Temporal Pulse Rate 95 Respiratory Rate 16 Respiratory Effort Respiratory Pattern Blood Pressure 157/46 H Blood Pressure Mean 83 Blood Pressure Source Blood Pressure Position Blood Pressure Location Pulse Ox 95 Oxygen Delivery Method Room Air Weight Weight: 55.157 kg Body Mass Index (BMI) 22.9 Physical Exam Const alert, oriented x3, no apparent distress and average body habitus General Appearance: cooperative, well kempt and well developed Orientation / Consciousness: awake, oriented to person, oriented to place and oriented to time HEENT normocephalic, head/scalp atraumatic, hearing grossly normal bilaterally and moist oral mucous membranes Eyes PERRL, EOMs intact bilaterally and conjunctivae normal Neck supple, no JVD, thyroid normal and no carotid bruits General: trachea midline Resp normal respiratory effort, no retractions, no use of accessory muscles and clear to auscultation bilaterally Auscultation: Negative for rales, rhonchi or wheezes Cardio regular rate, regular rhythm, S1 normal heart sound, S2 normal heart sound, no murmurs, no rub and no gallops GI normal to inspection, nondistended, normoactive bowel sounds, soft to palpation, non-tender and non-distended Extremity no clubbing, cyanosis or edema Skin no rashes or lesions noted General Skin Exam: no breakdown Neuro oriented x3, CN's II-XII intact bilaterally, moves all extremities, no focal motor deficits and no sensory deficits noted Sensorium / Orientation: awake, alert, oriented to person, oriented to place and oriented to time Speech: speech normal Psych affect normal Results Lab / Micro Data 12/26/22 17:12 12/26/22 06:47 Labs: Laboratory Results - last 24 hr 12/26/22 06:42: Lactic Acid 1.5 12/26/22 06:47: WBC 6.6, RBC 3.82 L, Hgb 11.9 L, Hct 35.6 L, MCV 93.2, MCH 31.2, MCHC 33.4, RDW Std Deviation 40.7, RDW Coeff of Tulio 11.9, Plt Count 219, MPV 12.1 H, Immature Gran % (Auto) 0.200, Neut % (Auto) 78.1 H, Lymph % (Auto) 3.6 L, [place] % (Auto) 17.3 H, Eos % (Auto) 0.5, Baso % (Auto) 0.3, Absolute Neuts (auto) 5.1, Absolute Lymphs (auto) 0.24 L, Nucleated RBC % 0, Differential Comment SCANNED, PT 13.9, INR 1.1, APTT 29.7, D-Dimer Quant (PE/DVT) 0.54 H*, Sodium 141, Potassium 3.6, Chloride 108 H, Carbon Dioxide 28.0, Anion Gap 5, BUN 14, Creatinine 0.62, Estim Creat Clear Calc 40.63, Est GFR (MDRD) Af Amer 123, Est GFR (MDRD) Non-Af 102, BUN/Creatinine Ratio 22.6 H, Glucose 132 H, Calcium 9.1, Total Bilirubin 1.20 H, AST 31, ALT 76 H, Alkaline Phosphatase 74, Troponin I High Sens 86 H, Total Protein 6.3 L, Albumin 3.2, Globulin 3.1, Albumin/Globulin Ratio 1.0 12/26/22 07:50: Urine Color Yellow, Urine Clarity Clear, Urine pH 7.0, Ur Specific [place] 1.010, Urine Protein 30 H, Urine Glucose (UA) Normal, Urine Ketones 5 H, Urine Occult Blood 10 H, Urine Nitrite Negative, Urine Bilirubin Negative, Urine Urobilinogen Normal, Ur Leukocyte Esterase Negative, Urine RBC 0 SEEN, Urine WBC 0 SEEN, Ur Squamous Epith Cells 0 SEEN, Amorphous Sediment 1+, Urine Bacteria 0 SEEN, Urine Mucus 0 SEEN 12/26/22 08:45: Blood Type O POSITIVE, Antibody Screen NEGATIVE 12/26/22 08:50: Troponin I High Sens 134 H* 12/26/22 12:20: Hgb 11.2 L, Hct 34.0 L, Troponin I High Sens 112 H 12/26/22 17:12: Hgb 10.3 L, Hct 31.4 L Micro: Microbiology 12/26/22 09:10 Stool Stool Occult Blood (RUFINA) - Final Occult Blood Positive 12/26/22 07:50 Nasal Secretion SARS-CoV-2 & FLU Antigen (Rapid) - Final Radiology Impression Chest X-Ray 12/26/22 07:15 IMPRESSION: No acute cardiopulmonary process identified. Electronically Signed: Elizabeth Iriwn MD at 8:20 EDT , Echocardiogram 12/26/22 11:13 Interpretation Summary Mild concentric left ventricular hypertrophy. The left ventricular ejection fraction is 70 %. Stage 2 diastolic dysfunction. Mild tricuspid valve insufficiency. Right ventricular systolic pressure estimated to be 63 mmHg. Ordering Physician: Aneudy Santillan Referring Physician: MELBA DUNBAR Performed By: Gaby Duarte RCS Assessment & Plan Assessment/Plan (1) Nausea & vomiting: PLAN: Plan 1. Nausea and vomiting-etiology unclear, possibly secondary to gastroenteritis, patient will be placed in observation status on PCU, IV fluids will be administered, she will be given medications for nausea and vomiting. #2 elevated troponin-etiology unclear, patient has no evidence of ischemia on her EKG and she has no complaints of any chest pain. Troponins will be cycled. Echocardiogram will be obtained. #3 hypoxia-etiology unclear at this point, patient will weigh ambulated and pulse ox will be monitored #4 asthma-patient has no signs of wheezing at this time, I will hold her Flovent inhaler for now, I discussed this with her, she does not want to use budesonide aerosols in the hospital. #5 anemia -etiology unclear, H&H will be monitored every 6 hours. Patient will be placed on a PPI in case she has occult GI bleeding, at this time my examination today, patient's stool Hemoccult was pending. Total clinical time spent by myself addressing the patient's medical issues, reviewing all of her data, and collaborating with the patient's care team: 55 minutes Charges/Coding Visit Charges Inpatient E&M: 32104 Init Hosp L2
[2022-12-26 18:31] LABS: Hematocrit 35.1 % (37-47); Hemoglobin 11.2 g/dL (12.0-15.0)
[2022-12-26] MEDS: Pantoprazole Sodium 40 MG Tablet PO (18:34)
[2022-12-26] MEDS: Escitalopram Oxalate 10 MG Tablet PO (22:24)
[2022-12-26] MEDS: amLODIPine 5 MG Tablet PO (22:25)
[2022-12-27 01:20] VITALS: BP 147/71; PULSE 96; RESP 18; TEMP 37.2; O2SAT 95
[2022-12-27] MEDS: 0.9% Normal Saline 1,000 ML 75 ML IV (02:26)
[2022-12-27 06:00] VITALS: BP 165/51; PULSE 103; RESP 18; TEMP 38.3; O2SAT 91
[2022-12-27] MEDS: Acetaminophen 325 MG Tablet 650 MG PO ×2 (06:46→14:28)
[2022-12-27 08:55] VITALS: BP 142/46; PULSE 96; RESP 20; TEMP 38; O2SAT 92
[2022-12-27] MEDS: Pantoprazole Sodium 40 MG Tablet PO (08:59)
[2022-12-27 09:05] VITALS: O2SAT 93
[2022-12-27 09:20] VITALS: O2SAT 89; O2SAT 92
--- NOTE | 2022-12-27 11:23 | DCINST_ITS ---
Discharge Instructions Diet Discharge Diet: No restrictions Activity Discharge Activity: Return to Normal Activity Weight Bearing Status: Full weight bearing Follow Up Care Test Results: Test results from this visit will be discussed in further detail at your follow- up appointment, if applicable. Discharge Plan Admission Admit Date/Time: 12/26/22 10:24 Primary Reason for Your Visit: nausea/vomiting, anemia, heme positive stool Attending Provider: Aneudy Santillan Primary Care Provider: Milagros Andrew Discharge Orders/Prescriptions Prescriptions: New pantoprazole 40 mg Tablet,Delayed Release (Dr/Ec) 40 mg PO DAILY Qty: 30 0RF benzonatate 200 mg capsule 200 mg PO TID PRN (Reason: cough) Qty: 20 0RF Continued calcium carbonate [Calcium 600] 600 mg calcium (1,500 mg) tablet 600 mg PO DAILY cholecalciferol (vitamin D3) 25 mcg (1,000 unit) capsule 4,000 unit PO DAILY promethazine 12.5 mg tablet 12.5 mg PO TID PRN (Reason: nausea and vomiting) Qty: 20 0RF (DME) BreatheRite MDI Spacer Spacer See Rx Instructions .Route Qty: 2 0RF Rx Instructions: As directed amlodipine 5 mg tablet 5 mg PO DAILY Qty: 90 1RF escitalopram oxalate 10 mg tablet 10 mg PO DAILY Patient Comments: take 1 tablet by mouth once daily fluticasone propionate [Flovent HFA] 110 mcg/actuation HFA aerosol inhaler 1 puff inhalation .daily Qty: 12 2RF Referrals / Follow Up: Milagros Andrew MD [Primary Care Provider] - Within 1 Week (You will need an EGD and colonoscopy scheduled because you have blood in your stool) Disposition Disposition (needs filled in before D/C Order can be placed): Home, Self Care
--- NOTE | 2022-12-27 11:56 | PCM.DC.SUM ---
Providers Date of Admission: 12/26/22 Date of Discharge: 12/27/22 Primary Care Physician: Dr. Melba Andrew MD Reason For Visit: VIRAL SYNDROME, ELEVATED TROPONIN Diagnosis Discharge Diagnosis (1) Nausea & vomiting: Status: Acute Code(s): R11.2 - Nausea with vomiting, unspecified Plan 1. Nausea and vomiting-etiology unclear, possibly secondary to gastroenteritis, patient will be placed in observation status on PCU, IV fluids will be administered, she will be given medications for nausea and vomiting. #2 elevated troponin-etiology unclear, patient has no evidence of ischemia on her EKG and she has no complaints of any chest pain. Troponins will be cycled. Echocardiogram will be obtained. #3 hypoxia-etiology unclear at this point, patient will weigh ambulated and pulse ox will be monitored #4 asthma-patient has no signs of wheezing at this time, I will hold her Flovent inhaler for now, I discussed this with her, she does not want to use budesonide aerosols in the hospital. #5 anemia -etiology unclear, H&H will be monitored every 6 hours. Patient will be placed on a PPI in case she has occult GI bleeding, at this time my examination today, patient's stool Hemoccult was pending. Total clinical time spent by myself addressing the patient's medical issues, reviewing all of her data, and collaborating with the patient's care team: 55 minutes Medications at Discharge Home Medications calcium carbonate 600 mg calcium (1,500 mg) tablet (Calcium) 600 mg PO DAILY supplement 02/25/21 cholecalciferol (vitamin D3) 25 mcg (1,000 unit) capsule 4,000 unit PO DAILY vitamin 11/13/21 promethazine 12.5 mg tablet 12.5 mg PO TID PRN nausea and vomiting #20 tabs 01/23/22 fluticasone propionate 110 mcg/actuation HFA aerosol inhaler (Flovent HFA) 1 puff inhalation .daily aerosols #12 grams 04/15/22 inhalational spacing device (BreatheRite MDI Spacer) #2 ea 07/02/22 amlodipine 5 mg tablet 5 mg PO DAILY blood pressure #90 tabs 10/12/22 escitalopram oxalate 10 mg tablet 10 mg PO DAILY anxiety 12/26/22 benzonatate 200 mg capsule 200 mg PO TID PRN cough #20 caps 12/27/22 nitrofurantoin monohydrate/macrocrystals 100 mg capsule (Macrobid) 100 mg PO BID #10 caps 12/27/22 pantoprazole 40 mg tablet,delayed release 40 mg PO DAILY #30 tabs 12/27/22 Weight / BMI Weight Weight: 55.157 kg Body Mass Index (BMI) 22.9 ABG / Lab / Microbiology Data 12/26/22 18:15 12/26/22 06:47 Laboratory: Laboratory Results - last 24 hr 12/26/22 12:20: Hgb 11.2 L, Hct 34.0 L, Troponin I High Sens 112 H 12/26/22 17:12: Hgb 10.3 L, Hct 31.4 L 12/26/22 18:15: Hgb 11.2 L, Hct 35.1 L Microbiology: Microbiology 12/27/22 09:05 Mucosa - Nasopharyngeal Respiratory Panel (PCR) - Final 12/26/22 07:50 Urine, Clean Catch Urine Culture - Preliminary Gram negative judith 12/26/22 09:10 Stool Stool Occult Blood (RUFINA) - Final Occult Blood Positive 12/26/22 07:50 Nasal Secretion SARS-CoV-2 & FLU Antigen (Rapid) - Final Radiography Diagnostic Testing: Radiology Impression Echocardiogram 12/26/22 11:13 Interpretation Summary Mild concentric left ventricular hypertrophy. The left ventricular ejection fraction is 70 %. Stage 2 diastolic dysfunction. Mild tricuspid valve insufficiency. Right ventricular systolic pressure estimated to be 63 mmHg. Ordering Physician: Aneudy Santillan Referring Physician: MELBA ANDREW Performed By: Gaby Duarte RCS D/C Instructions Discharge Diet: No restrictions Weight Bearing Status: Full weight bearing Discharge Plan Admission Admit Date/Time: 12/26/22 10:24 Primary Reason for Your Visit: nausea/vomiting, anemia, heme positive stool Attending Provider: Aneudy Santillan Primary Care Provider: Melba Andrew Discharge Orders/Prescriptions Prescriptions: New pantoprazole 40 mg Tablet,Delayed Release (Dr/Ec) 40 mg PO DAILY Qty: 30 0RF benzonatate 200 mg capsule 200 mg PO TID PRN (Reason: cough) Qty: 20 0RF nitrofurantoin monohyd/m-cryst [Macrobid] 100 mg capsule 100 mg PO BID Qty: 10 0RF Rx Instructions: must administer with a meal/food Continued calcium carbonate [Calcium 600] 600 mg calcium (1,500 mg) tablet 600 mg PO DAILY cholecalciferol (vitamin D3) 25 mcg (1,000 unit) capsule 4,000 unit PO DAILY promethazine 12.5 mg tablet 12.5 mg PO TID PRN (Reason: nausea and vomiting) Qty: 20 0RF (DME) BreatheRite MDI Spacer Spacer See Rx Instructions .Route Qty: 2 0RF Rx Instructions: As directed amlodipine 5 mg tablet 5 mg PO DAILY Qty: 90 1RF escitalopram oxalate 10 mg tablet 10 mg PO DAILY Patient Comments: take 1 tablet by mouth once daily fluticasone propionate [Flovent HFA] 110 mcg/actuation HFA aerosol inhaler 1 puff inhalation .daily Qty: 12 2RF Referrals / Follow Up: Melba Adnrew MD [Primary Care Provider] - Within 1 Week (You will need an EGD and colonoscopy scheduled because you have blood in your stool) Disposition Disposition (needs filled in before D/C Order can be placed): Home, Self Care
[2022-12-27 16:17] LABS: Absolute Lymphocyte Count 0.63 X10^3/uL (0.83-4.51); Absolute Neutrophil Count 3.6 X10^3/uL (2.0-7.7); Basophil# 0.01 X10^3/uL; Basophil% 0.2 % (0-1); Eosinophil# 0.01 X10^3/uL; Eosinophils% 0.2 % (0-5); Hematocrit 31.9 % (37-47); Hemoglobin 10.3 g/dL (12.0-15.0); Lymphocyte # 0.63 X10^3/ul (0.83-4.51); Lymphocyte % 11.6 % (19-41); Mean Corp Hgb Conc 32.3 g/dL (32-36); Mean Corpuscular Hgb 30.3 pg (27.0-32.0); Mean Corpuscular Volume 93.8 fL (81-99); Mean Platelet Vol. 11.6 fl (6.2-12.0); Monocyte# 1.18 X10^3/uL; Monocyte% 21.7 % (0-10); NRBC Flagged by Analyzer 0 % (0-5); Neutrophil # 3.59 X10^3/uL (2.7-7.7); Neutrophil % 66.1 % (47-70); Platelet Count 182 K/mm3 (150-450); RBC Distribution Width SD 41.4 fl (35.1-43.9); White Blood Count 5.4 K/mm3 (4.4-11.0)
--- NOTE | 2022-12-27 16:50 | PCM.PN.HOSP ---
Reason for Visit Reason for Visit: Diagnoses Nausea with vomiting, unspecified (12/26/22) Subjective Subjective Pain and examined today, she had a fever earlier this morning, I do not have an actual etiology for the fever, she did have bacteriuria however and I have elected to place her on some Macrodantin. I was set up to discharge the patient today when she noticed there was blood on her panties, I repeated her CBC this afternoon, her hemoglobin was 10.3, this is a drop from yesterday evening but it is approximately the same hemoglobin as earlier in the day yesterday afternoon. At this time, it is unclear whether the patient has any active bleeding and I have elected to keep the patient in the hospital and prep her for an EGD and a colonoscopy, I have contacted general surgery and they should be able to do an upper and lower endoscopy tomorrow. Objective Data Objective Data Vital Signs: Vital Signs Temp Pulse Resp BP Pulse Ox O2 Del Method O2 Flow Rate 101 F H 96 20 H 160/75 H 92 Room Air 0 12/27/22 14:23 12/27/22 14:23 12/27/22 14:23 12/27/22 14:23 12/27/22 14:23 12/27/22 15:15 12/27/22 09:20 Oxygen Flow Rate (L/min) [At 0 REST on Room Air] Oxygen Flow Rate (L/min) [ 0 AMBULATING on Room Air] Oxygen Delivery Method Room Air Weight: 55.157 kg Body Mass Index (BMI) 22.9 Intake & Output: Intake and Output for Last 24 Hours 12/25/22 12/26/22 12/27/22 23:59 23:59 23:59 Intake Total 1000 / 1100 2392.5 / 2392.5 Balance 1000 / 1100 2392.5 / 2392.5 Lab / Micro Data 12/27/22 15:45 12/26/22 06:47 Labs: Laboratory Results - last 24 hr 12/26/22 17:12: Hgb 10.3 L, Hct 31.4 L 12/26/22 18:15: Hgb 11.2 L, Hct 35.1 L 12/27/22 15:45: WBC 5.4, RBC 3.40 L, Hgb 10.3 L, Hct 31.9 L, MCV 93.8, MCH 30.3, MCHC 32.3, RDW Std Deviation 41.4, RDW Coeff of Tulio 12.0, Plt Count 182, MPV 11.6, Immature Gran % (Auto) 0.200, Neut % (Auto) 66.1, Lymph % (Auto) 11.6 L, [place] % (Auto) 21.7 H, Eos % (Auto) 0.2, Baso % (Auto) 0.2, Absolute Neuts (auto) 3.6, Absolute Lymphs (auto) 0.63 L, Nucleated RBC % 0 Micro: Microbiology 12/27/22 09:05 Mucosa - Nasopharyngeal Respiratory Panel (PCR) - Final 12/26/22 07:50 Urine, Clean Catch Urine Culture - Preliminary Gram negative judith 12/26/22 09:10 Stool Stool Occult Blood (RUFINA) - Final Occult Blood Positive 12/26/22 07:50 Nasal Secretion SARS-CoV-2 & FLU Antigen (Rapid) - Final Physical Exam Const alert, oriented x3, no apparent distress and healthy appearing General Appearance: cooperative, well kempt and well developed Orientation / Consciousness: awake, oriented to person, oriented to place and oriented to time HEENT normocephalic, head/scalp atraumatic and moist oral mucous membranes Eyes PERRL, EOMs intact bilaterally and conjunctivae normal Neck supple, no JVD, thyroid normal and no carotid bruits General: trachea midline Resp normal respiratory effort, no retractions, no use of accessory muscles and clear to auscultation bilaterally Auscultation: Negative for rales, rhonchi or wheezes Cardio regular rate, regular rhythm, S1 normal heart sound, S2 normal heart sound, no murmurs, no rub and no gallops GI normal to inspection, nondistended, normoactive bowel sounds, soft to palpation, non-tender and non-distended Extremity no clubbing, cyanosis or edema Skin no rashes or lesions noted General Skin Exam: no breakdown Neuro oriented x3, CN's II-XII intact bilaterally, moves all extremities, no focal motor deficits and no sensory deficits noted Sensorium / Orientation: awake, alert, oriented to person, oriented to place and oriented to time Speech: speech normal Psych affect normal Assessment & Plan Assessment/Plan (1) Nausea & vomiting: PLAN: Plan 1. Nausea and vomiting-etiology unclear, resolved at this time, patient will be prepped for an EGD and colonoscopy, general surgery will see the patient in consultation (Dr. Garcia), she will remain on a clear liquid diet for now #2 elevated troponin-etiology unclear, patient's echocardiogram shows a normal ejection fraction #3 anemia with Hemoccult positive stool-etiology unclear, again patient will undergo an EGD and a colonoscopy tomorrow due to concerns of active bleeding #4 hypoxia-etiology unclear, resolved at this time #5 moderate pulmonary hypertension-etiology unclear, patient will need follow-up as an outpatient #6 fever of unknown origin-again patient has bacteriuria but there is no obvious reason for the patient Roxana temperature at this time, patient's white count remains normal. Patient's temperature will be monitored. Total clinical time spent by myself addressing patient's medical issues, reviewing all of her data, and collaborating with patient's care team: 35-minute Charges/Coding Visit Charges Inpatient E&M: 22496 Subs Hosp L2
[2022-12-27] MEDS: Electrolyte Solution/Peg's 4000 ML PO (18:05)
[2022-12-27 18:15] VITALS: BP 165/63; PULSE 86; RESP 18; TEMP 37.5; O2SAT 96
--- NOTE | 2022-12-27 21:26 | EX.PCM.CON.S ---
Assessment & Plan Assessment/Plan (1) Occult blood positive stool: (2) Bright red blood per rectum: PLAN: Plan This is a 67-year-old female who is admitted for general weakness, and general signs and symptoms of an infection that has been yet to be fully characterized, but patient was diagnosed with probable UTI, who is evaluated for possible GI bleed as well. Earlier in the month patient reportedly had a hemoglobin of 13.6 and throughout her admission since earlier yesterday has fluctuated between 10 and 11 g/dL. Although patient describes some weakness, I would question whether or not this is actually related to her other presenting issue. Still patient is very anxious given her prior history of a GI bleed that was never localized. Her reports of bright red blood per rectum with concurrent reporting of a new hemorrhoids suggest that these 2 could be connected. I do believe patient will require upper and lower endoscopy to more fully investigate this issue, however, I find her up-and-down hemoglobin levels somewhat difficult to draw conclusions from. I have recommended we recheck her hemoglobin in the morning and assess availability of endoscopy for performing upper and lower endoscopy tomorrow. I have suggested to, however, that if her hemoglobin is stable to improved and it is unlikely that we would have time for nonemergent endoscopy tomorrow that we would follow-up as an outpatient for a rather quick turnaround time to perform this for her. Patient expresses her earnest interest in having this done this admission. HPI Consult Data Date of Consult: 12/27/22 HPI Narrative Reason for Consultation: Possible GI bleed HPI Narrative: MANOHAR VILLAFANA, is a 67 F who presented to [facility] on 12/26/2022 after several weeks of feeling poorly. She states approximately 12/10/2022 she began with progressive weakness. She saw her PCP, Dr. Andrew who began a work-up and then patient went to [facility] where she continued to feel poorly. She was admitted by the hospitalist service on 12/26/2022 due to inability to tolerate oral medications or oral nutrition and a infectious work-up was undertaken given her symptoms of fever, chills, cough, and myalgias. She reportedly has tested negative for COVID and flu. She has been intermittently febrile. Still, she experienced some overall clinical improvements and was prepared for discharge home today when she noted some bright red blood in her underclothes. Her hemoglobin, having been serially checked, was rechecked and found to be down to prompting the consult to surgery for consideration of upper and lower endoscopy. Patient is currently undergoing a bowel prep in anticipation of this procedure. Patient currently complains of weakness and some lightheadedness. She states that she is aware of a hemorrhoid that is cropped up over the past week. Patient has a history of GI bleed 2 years ago in 2020. She states that she bled a lot but did not require transfusion. She underwent colonoscopy, but the bleed was not able to be localized and she was informed this was likely a bleed at the base of a diverticula. Beyond this she reports a history of Stroud's esophagus found on an upper scope, but when she went for both surveillance of this issue and a repeat colonoscopy in 2019 she was told that she no longer had Stroud's esophagus and was given a, reportedly, 10-year follow-up for her colonoscopy surveillance. Yet, patient remarks that she has a history of colon polyps and has had one with every scope she is ever undergone. More remotely patient has a history of diverticulitis and underwent a segmental colectomy in 2004. Patient has no family history of colon cancer, but states her father had a number of ulcers through his life (he is now ). [facility] Medical History Abnormal EKG Anxiety and depression Asthma C. difficile colitis Diverticulitis Essential hypertension GI bleed Skin cancer Home Medications calcium carbonate 600 mg calcium (1,500 mg) tablet (Calcium) 600 mg PO DAILY supplement 02/25/21 [History Last Taken Unknown] cholecalciferol (vitamin D3) 25 mcg (1,000 unit) capsule 4,000 unit PO DAILY vitamin 11/13/21 [History Last Taken Unknown] promethazine 12.5 mg tablet 12.5 mg PO TID PRN nausea and vomiting #20 tabs 01/23/22 [Rx Last Taken Unknown] fluticasone propionate 110 mcg/actuation HFA aerosol inhaler (Flovent HFA) 1 puff inhalation .daily aerosols #12 grams 04/15/22 [Rx Last Taken Unknown] inhalational spacing device (BreatheRite MDI Spacer) #2 ea 07/02/22 [Rx Last Taken Unknown] amlodipine 5 mg tablet 5 mg PO DAILY blood pressure #90 tabs 10/12/22 [Rx Last Taken Unknown] escitalopram oxalate 10 mg tablet 10 mg PO DAILY anxiety 12/26/22 [History Last Taken Unknown] benzonatate 200 mg capsule 200 mg PO TID PRN cough #20 caps 12/27/22 [Rx Last Taken Unknown] nitrofurantoin monohydrate/macrocrystals 100 mg capsule (Macrobid) 100 mg PO BID #10 caps 12/27/22 [Rx Last Taken Unknown] pantoprazole 40 mg tablet,delayed release 40 mg PO DAILY #30 tabs 12/27/22 [Rx Last Taken Unknown] Allergy/AdvReac Type Severity Reaction Status Date / Time codeine AdvReac Unknown nausea and Verified 12/26/22 06:27 vomiting Family History Father Asthma Myocardial infarction, Onset Age: 50 Heart disease Hypertension Hyperlipemia Mother Breast cancer Cancer mouth Surgical History History of colon resection History of hysterectomy Status post surgical removal of malignant neoplasm of skin Social History household members: none current occupational status: retired current occupation: professor at [employer], retired in 2018, taught social work Smoking Status: Never smoker Electronic Cigarette Use: not used alcohol intake: current alcohol intake frequency: a few times a month Alcohol type: wine substance use type: does not use caffeine: Yes Type: coffee what type of physical activity do you participate in: weight training and other details: cardio machines frequency: 3-4 times per week seatbelt use: always do you feel safe at home: Yes Physical Exam Const alert and oriented x3 Constitutional Narrative: Anxious Resp normal respiratory effort GI GI Narrative: Soft, nondistended, well-healed Pfannenstiel incision, nontender to palpation x4 quadrants Lab / Micro Data 12/27/22 15:45 12/26/22 06:47 Labs: Laboratory Results - last 24 hr 12/27/22 15:45: WBC 5.4, RBC 3.40 L, Hgb 10.3 L, Hct 31.9 L, MCV 93.8, MCH 30.3, MCHC 32.3, RDW Std Deviation 41.4, RDW Coeff of Tulio 12.0, Plt Count 182, MPV 11.6, Immature Gran % (Auto) 0.200, Neut % (Auto) 66.1, Lymph % (Auto) 11.6 L, [place] % (Auto) 21.7 H, Eos % (Auto) 0.2, Baso % (Auto) 0.2, Absolute Neuts (auto) 3.6, Absolute Lymphs (auto) 0.63 L, Nucleated RBC % 0 Micro: Microbiology 12/27/22 09:05 Mucosa - Nasopharyngeal Respiratory Panel (PCR) - Final 12/26/22 07:50 Urine, Clean Catch Urine Culture - Preliminary Gram negative judith Charges/Coding Visit Charges Inpatient E&M: 93302 Init Hosp L2
[2022-12-27] MEDS: amLODIPine 5 MG Tablet PO (21:57)
[2022-12-27] MEDS: Escitalopram Oxalate 10 MG Tablet PO (21:57)
[2022-12-28] VITALS (13 sets, daily range): BP systolic 133–169; BP diastolic 46–68; PULSE 85–99; RESP 16–18; TEMP 36.4–37.3; O2SAT 93–98
[2022-12-28 05:52] LABS: Absolute Lymphocyte Count 0.53 X10^3/uL (0.83-4.51); Absolute Neutrophil Count 2.6 X10^3/uL (2.0-7.7); Basophil# 0.01 X10^3/uL; Basophil% 0.3 % (0-1); Eosinophil# 0.01 X10^3/uL; Eosinophils% 0.3 % (0-5); Hematocrit 30.7 % (37-47); Hemoglobin 10.2 g/dL (12.0-15.0); Lymphocyte # 0.53 X10^3/ul (0.83-4.51); Lymphocyte % 13.3 % (19-41); Mean Corp Hgb Conc 33.2 g/dL (32-36); Mean Corpuscular Hgb 30.8 pg (27.0-32.0); Mean Corpuscular Volume 92.7 fL (81-99); Mean Platelet Vol. 11.9 fl (6.2-12.0); Monocyte# 0.86 X10^3/uL; Monocyte% 21.6 % (0-10); NRBC Flagged by Analyzer 0 % (0-5); Neutrophil # 2.57 X10^3/uL (2.7-7.7); Neutrophil % 64.2 % (47-70); POSITIVE DIFFERENTIAL YES; Platelet Count 180 K/mm3 (150-450); RBC Distribution Width CV 11.8 % (11.6-14.6); RBC Distribution Width SD 40.2 fl (35.1-43.9); Red Blood Count 3.31 M/mm3 (4.2-5.4)
[2022-12-28 05:54] LABS: Differential Indicated SCAN CRITERIA MET
[2022-12-28 06:24] LABS: Differential Comment SCANNED
--- NOTE | 2022-12-28 08:47 | PCM.PN.HOSP ---
Reason for Visit Reason for Visit: Diagnoses Hemorrhage of anus and rectum (12/26/22) Nausea with vomiting, unspecified (12/26/22) Other fecal abnormalities (12/26/22) Subjective Subjective Patient is a 67-year-old lady admitted with intractable nausea and vomiting as well as generalized weakness admitted to regular nursing floor with consultation placed to general surgery Objective Data Objective Data Vital Signs: Vital Signs Temp Pulse Resp BP Pulse Ox O2 Del Method O2 Flow Rate 98.4 F 99 18 169/64 H 93 Room Air 0 12/28/22 07:30 12/28/22 07:30 12/28/22 07:30 12/28/22 07:30 12/28/22 07:30 12/28/22 08:41 12/27/22 09:20 Oxygen Flow Rate (L/min) [At 0 REST on Room Air] Oxygen Flow Rate (L/min) [ 0 AMBULATING on Room Air] Oxygen Delivery Method Room Air Weight: 55.157 kg Body Mass Index (BMI) 22.9 Intake & Output: Intake and Output for Last 24 Hours 12/26/22 12/27/22 12/28/22 23:59 23:59 23:59 Intake Total 1000 / 1100 2632.5 / 3072.5 840 / 840 Balance 1000 / 1100 2632.5 / 3072.5 840 / 840 Lab / Micro Data 12/28/22 04:56 12/26/22 06:47 Labs: Laboratory Results - last 24 hr 12/27/22 15:45: WBC 5.4, RBC 3.40 L, Hgb 10.3 L, Hct 31.9 L, MCV 93.8, MCH 30.3, MCHC 32.3, RDW Std Deviation 41.4, RDW Coeff of Tulio 12.0, Plt Count 182, MPV 11.6, Immature Gran % (Auto) 0.200, Neut % (Auto) 66.1, Lymph % (Auto) 11.6 L, [place] % (Auto) 21.7 H, Eos % (Auto) 0.2, Baso % (Auto) 0.2, Absolute Neuts (auto) 3.6, Absolute Lymphs (auto) 0.63 L, Nucleated RBC % 0 12/28/22 04:56: WBC 4.0 L, RBC 3.31 L, Hgb 10.2 L, Hct 30.7 L, MCV 92.7, MCH 30.8, MCHC 33.2, RDW Std Deviation 40.2, RDW Coeff of Tulio 11.8, Plt Count 180, MPV 11.9, Immature Gran % (Auto) 0.300, Neut % (Auto) 64.2, Lymph % (Auto) 13.3 L, [place] % (Auto) 21.6 H, Eos % (Auto) 0.3, Baso % (Auto) 0.3, Absolute Neuts (auto) 2.6, Absolute Lymphs (auto) 0.53 L, Nucleated RBC % 0, Differential Comment SCANNED, Diff Path Review October Micro: Microbiology 12/26/22 07:50 Urine, Clean Catch Urine Culture - Preliminary Pseudomonas aeruginosa 12/27/22 09:05 Mucosa - Nasopharyngeal Respiratory Panel (PCR) - Final 12/26/22 09:10 Stool Stool Occult Blood (RUFINA) - Final Occult Blood Positive 12/26/22 07:50 Nasal Secretion SARS-CoV-2 & FLU Antigen (Rapid) - Final Physical Exam Narrative GENERAL: cooperative HEENT: Atraumatic; normocephalic EYES; Anicteric, Normal Conjunctiva NECK; supple, normal thyroid, RESPIRATORY: Diminished to auscultation CARDIOVASCULAR: Regular S1 S2, GI: soft, normoactive bowel sounds, : No Renal angle tenderness; EXTREMITIES: No edema, no clubbing, MUSCULOSKELETAL: no muscle wasting NEURO: Awake; no lateralizing signs. SKIN: No Rash PSYCH; Flat affect Assessment & Plan Assessment/Plan (1) Nausea & vomiting: QUALIFIERS: Vomiting type: unspecified Qualified Code(s): R11.2 - Nausea with vomiting, unspecified PLAN: Plan Patient is a 67-year-old lady admitted with intractable nausea and vomiting as well as generalized weakness admitted to regular nursing floor with consultation placed to general surgery 1. Intractable nausea vomiting ? Patient rehydrated with IV fluid consult placed to general surgery plan is for patient to undergo endoscopic evaluation by Dr. Garcia 2. Elevated troponin ? Secondary to demand ischemia. Echo ordered demonstrated normal EF 3. Anemia with occult positive stool ? Patient scheduled to undergo EGD and colonoscopy. Monitoring H&H every 6 hours with plans to transfuse if patient becomes symptomatic or hemoglobin falls below 7 4. Hypertension - Blood pressure controlled, home medications continued with dose adjustment as needed 5. GERD ? On PPI 6. Moderate pulmonary hypertension ? Currently stable plan is for patient to follow-up with PCP as outpatient 7. DVT prophylaxis ? Bilateral SCDs Time spent in the patient's overall evaluation,decision-making process, review of diagnostic data, adjustment of management, discussion with other providers, nursing nursing and ancillary staff involved in patient's care documentation, 35 Minutes Charges/Coding Visit Charges Inpatient E&M: 57110 Subs Hosp L2
--- NOTE | 2022-12-28 09:46 | PCM.PN.SRG ---
Subjective Subjective Patient seen and examined during AM rounds with primary nurse. She reports that she was up to the commode frequently overnight, but denies awareness of any bleeding. She denies any abdominal discomfort. She wishes to know whether or not we will proceed to the endoscopy suite today for procedure. Objective Data Objective Data Vital Signs: Vital Signs Temp Pulse Resp BP Pulse Ox O2 Del Method O2 Flow Rate 98.4 F 99 18 169/64 H 93 Room Air 0 12/28/22 07:30 12/28/22 07:30 12/28/22 07:30 12/28/22 07:30 12/28/22 07:30 12/28/22 08:41 12/27/22 09:20 Oxygen Flow Rate (L/min) [At 0 REST on Room Air] Oxygen Flow Rate (L/min) [ 0 AMBULATING on Room Air] Oxygen Delivery Method Room Air Weight: 121 lb 9.6 oz Body Mass Index (BMI) 22.9 Intake & Output: Intake and Output for Last 24 Hours 12/26/22 12/27/22 12/28/22 23:59 23:59 23:59 Intake Total 1000 / 1100 2632.5 / 3072.5 840 / 840 Balance 1000 / 1100 2632.5 / 3072.5 840 / 840 Lab / Micro Data 12/28/22 04:56 12/26/22 06:47 Labs: Laboratory Results - last 24 hr 12/27/22 15:45: WBC 5.4, RBC 3.40 L, Hgb 10.3 L, Hct 31.9 L, MCV 93.8, MCH 30.3, MCHC 32.3, RDW Std Deviation 41.4, RDW Coeff of Tulio 12.0, Plt Count 182, MPV 11.6, Immature Gran % (Auto) 0.200, Neut % (Auto) 66.1, Lymph % (Auto) 11.6 L, [place] % (Auto) 21.7 H, Eos % (Auto) 0.2, Baso % (Auto) 0.2, Absolute Neuts (auto) 3.6, Absolute Lymphs (auto) 0.63 L, Nucleated RBC % 0 12/28/22 04:56: WBC 4.0 L, RBC 3.31 L, Hgb 10.2 L, Hct 30.7 L, MCV 92.7, MCH 30.8, MCHC 33.2, RDW Std Deviation 40.2, RDW Coeff of Tulio 11.8, Plt Count 180, MPV 11.9, Immature Gran % (Auto) 0.300, Neut % (Auto) 64.2, Lymph % (Auto) 13.3 L, [place] % (Auto) 21.6 H, Eos % (Auto) 0.3, Baso % (Auto) 0.3, Absolute Neuts (auto) 2.6, Absolute Lymphs (auto) 0.53 L, Nucleated RBC % 0, Differential Comment SCANNED, Diff Path Review October foll Micro: Microbiology 12/26/22 07:50 Urine, Clean Catch Urine Culture - Preliminary Pseudomonas aeruginosa 12/27/22 09:05 Mucosa - Nasopharyngeal Respiratory Panel (PCR) - Final 12/26/22 09:10 Stool Stool Occult Blood (RUFINA) - Final Occult Blood Positive 12/26/22 07:50 Nasal Secretion SARS-CoV-2 & FLU Antigen (Rapid) - Final Physical Exam Const oriented x3 and no apparent distress GI GI Narrative: Nondistended, soft, nontender to palpation x4 quadrants. Anal exam is performed and patient does have an engorged right posterior hemorrhoid that appears to represent a grade 4 internal hemorrhoid. Assessment & Plan Assessment/Plan (1) Occult blood positive stool: (2) Bright red blood per rectum: PLAN: Plan This is a 67-year-old female who is admitted for general weakness, and general signs and symptoms of an infection that has been yet to be fully characterized, but patient was diagnosed with probable UTI, who is evaluated for possible GI bleed as well. Patient's hemoglobin stable today despite a bowel prep and has come back at 10.2 from 10.3 yesterday. She kaitlin hemodynamically stable. On exam she does have evidence of a flared internal hemorrhoid. I am suspicious about these being the cause of the bright red bleeding per rectum that was noted earlier in her stay. Still hemoglobin of 10.3 represent a significant decline from her 13.6 value earlier this month. Since she has already completed a bowel prep I find it reasonable to pursue upper and lower endoscopy to examine for source. Her white blood cell count is somewhat low this morning and I have cautioned her that I would recommend simply performing a diagnostic colonoscopy and EGD without unnecessary biopsy while there is concern about her immune function. She expresses some frustration with this but understanding. We will plan for upper and lower endoscopy at approximately 1500 this afternoon. Charges/Coding Visit Charges Inpatient E&M: 68656 Subs Hosp L2
--- NOTE | 2022-12-28 10:29 | CASEMGMT ---
RN CM: NARAYAN RAMOS in to complete TAM form at this time. RN CM explained TAM form to patient, patient voiced understanding. Patient signed TAM Form and filed in chart. Patient provided with copy of signed TAM form. Patient had no further questions or concerns. DC Planning: Pt states she lives alone and is independent with ADLs. Pt denies any dc needs at this time and states she has family and friends that can assist her if needed. Oliva Carlson RN CM
--- NOTE | 2022-12-28 15:47 | CASEMGMT ---
Patient has a Healthcare Power of Director Heart and a Healthcare Living Will on file at [facility]. Patient's daughter Cynthia is patient's Healthcare Power of Director Heart. Erica Leblanc MSW TANK
--- NOTE | 2022-12-28 17:21 | OP.EGD_ITS ---
Patient Name: Capri Olguin Procedure Date: 12/28/2022 4:13 PM Date of : 1955 Age: 67 Procedure: Upper GI endoscopy Indications: Acute post hemorrhagic anemia, Heme positive stool, Anemia Providers: Fausto Garcia MD Medicines: See the Anesthesia note for documentation of the administered medications Patient Profile: Refer to note in patient chart for documentation of history and physical. Complications: No immediate complications. Estimated blood loss: None. Procedure: Pre-Anesthesia Assessment: - The heart rate, respiratory rate, oxygen saturations, blood pressure, adequacy of pulmonary ventilation, and response to care were monitored throughout the procedure. After obtaining informed consent, the endoscope was passed under direct vision. Throughout the procedure, the patient's blood pressure, pulse, and oxygen saturations were monitored continuously. The pediatric colonoscope was introduced through the mouth, and advanced to the second part of duodenum. The upper GI endoscopy was accomplished without difficulty. The patient tolerated the procedure well. Scope In: 4:28:20 PM Scope Out: 4:42:16 PM Total Procedure Duration Time 0 hours 13 minutes 56 seconds Findings: The duodenal bulb, first portion of the duodenum and second portion of the duodenum were normal. No biopsies or other specimens were collected for this exam. Multiple 5 mm pedunculated and sessile polyps with no bleeding and no stigmata of recent bleeding were found in the gastric body. No biopsies or other specimens were collected for this exam. The Z-line was regular and was found 40 cm from the incisors. No biopsies or other specimens were collected for this exam. A medium-sized hiatal hernia was present. No biopsies or other specimens were collected for this exam. The exam was otherwise without abnormality. Impression: - Normal duodenal bulb, first portion of the duodenum and second portion of the duodenum. No specimens collected. - Multiple gastric polyps. No specimens collected. - Z-line regular, 40 cm from the incisors. No specimens collected. - Medium-sized hiatal hernia. No specimens collected. - The examination was otherwise normal. Recommendation: - Return patient to [facility] for ongoing care. - Clear liquid diet today. - Continue present medications. Procedure Code(s): --- Professional --- 75710, Esophagogastroduodenoscopy, flexible, transoral; diagnostic, including collection of specimen(s) by brushing or washing, when performed (separate procedure) Diagnosis Code(s): --- Professional --- K31.7, Polyp of stomach and duodenum K44.9, Diaphragmatic hernia without obstruction or gangrene D62, Acute posthemorrhagic anemia R19.5, Other fecal abnormalities D64.9, Anemia, unspecified CPT copyright 2017 [employer]. All rights reserved. The codes documented in this report are preliminary and upon professional fee coder review may be revised to meet current compliance requirements. Fausto Garcia MD 12/28/2022 5:21:21 PM This report has been signed electronically. Number of Addenda: 0 Note Initiated On: 12/28/2022 4:13 PM
--- NOTE | 2022-12-28 17:21 | OP.CCLET_ITS ---
12/28/2022 Milagros Andrew Md Re : Upper GI endoscopy procedure for Capri Olguin Dear Kamran This procedure was performed on Wednesday, December 28, 2022. My impressions and recommendations are as follows: Impressions : - Normal duodenal bulb, first portion of the duodenum and second portion of the duodenum. No specimens collected. - Multiple gastric polyps. No specimens collected. - Z-line regular, 40 cm from the incisors. No specimens collected. - Medium-sized hiatal hernia. No specimens collected. - The examination was otherwise normal. Recommendations : - Return patient to [facility] for ongoing care. - Clear liquid diet today. - Continue present medications. My findings are described in the full procedure note, which is enclosed. If I can be of further assistance, please feel free to contact me at Doctor phone number(s): , Work: . Sincerely, Fausto Garcia MD 12/28/2022 5:21:21 PM This report has been signed electronically.
--- NOTE | 2022-12-28 17:32 | OP.CCLET_ITS ---
12/28/2022 Milagros Andrew Md Re : Colonoscopy procedure for Capri Olguin Dear Kamran This procedure was performed on Wednesday, December 28, 2022. My impressions and recommendations are as follows: Impressions : - Preparation of the colon was fair. - Hemorrhoids found on perianal exam. - Diverticulosis in the descending colon, in the transverse colon and in the ascending colon. No specimens collected. - Multiple non-bleeding colonic angioectasias. No specimens collected. - Erythematous mucosa at the colonic anastomosis. No specimens collected. - Internal hemorrhoids. No specimens collected. Recommendations : - Return patient to [facility] for ongoing care. - Clear liquid diet today. - Continue present medications. - Repeat colonoscopy at appointment to be scheduled for surveillance based on pathology results. My findings are described in the full procedure note, which is enclosed. If I can be of further assistance, please feel free to contact me at Doctor phone number(s): , Work: . Sincerely, Fausto Garcia MD 12/28/2022 5:32:29 PM This report has been signed electronically.
--- NOTE | 2022-12-28 17:32 | OP.COLON_ITS ---
Patient Name: Capri Olguin Procedure Date: 12/28/2022 4:42 PM Date of : 1955 Age: 67 Procedure: Colonoscopy Indications: Heme positive stool, Rectal bleeding, Acute post hemorrhagic anemia Providers: Fausto Garcia MD Medicines: See the Anesthesia note for documentation of the administered medications Patient Profile: Refer to note in patient chart for documentation of history and physical. Last Colonoscopy: within the past 3 years. Complications: No immediate complications. Estimated blood loss: None. Procedure: Pre-Anesthesia Assessment: - The heart rate, respiratory rate, oxygen saturations, blood pressure, adequacy of pulmonary ventilation, and response to care were monitored throughout the procedure. After I obtained informed consent, the scope was passed under direct vision. Throughout the procedure, the patient's blood pressure, pulse, and oxygen saturations were monitored continuously. The pediatric colonoscope was introduced through the anus and advanced to the cecum, identified by transillumination. The colonoscopy was somewhat difficult due to poor bowel prep. Successful completion of the procedure was aided by lavage. The patient tolerated the procedure well. The quality of the bowel preparation was fair. Scope In: 4:45:29 PM Scope Withdrawal Time 0 hours 14 minutes 40 seconds Scope Out: 5:07:24 PM Total Procedure Duration Time 0 hours 21 minutes 55 seconds Findings: Hemorrhoids were found on perianal exam. Multiple small and large-mouthed diverticula were found in the descending colon, transverse colon and ascending colon. No biopsies or other specimens were collected for this exam. Multiple medium-sized patchy angioectasias without bleeding were found in the descending colon. No biopsies or other specimens were collected for this exam. A localized area of mildly erythematous mucosa was found at the anastomosis. No biopsies or other specimens were collected for this exam. Internal hemorrhoids were found during retroflexion and during perianal exam. No biopsies or other specimens were collected for this exam. Impression: - Preparation of the colon was fair. - Hemorrhoids found on perianal exam. - Diverticulosis in the descending colon, in the transverse colon and in the ascending colon. No specimens collected. - Multiple non-bleeding colonic angioectasias. No specimens collected. - Erythematous mucosa at the colonic anastomosis. No specimens collected. - Internal hemorrhoids. No specimens collected. Recommendation: - Return patient to [facility] for ongoing care. - Clear liquid diet today. - Continue present medications. - Repeat colonoscopy at appointment to be scheduled for surveillance based on pathology results. Procedure Code(s): --- Professional --- 19783, Colonoscopy, flexible; diagnostic, including collection of specimen(s) by brushing or washing, when performed (separate procedure) Diagnosis Code(s): --- Professional --- K64.8, Other hemorrhoids K55.20, Angiodysplasia of colon without hemorrhage K63.89, Other specified diseases of intestine R19.5, Other fecal abnormalities K62.5, Hemorrhage of anus and rectum D62, Acute posthemorrhagic anemia K57.30, Diverticulosis of large intestine without perforation or abscess without bleeding CPT copyright 2017 [employer]. All rights reserved. The codes documented in this report are preliminary and upon medical insurance coder review may be revised to meet current compliance requirements. Fausto Garcia MD 12/28/2022 5:32:29 PM This report has been signed electronically. Number of Addenda: 0 Note Initiated On: 12/28/2022 4:42 PM
[2022-12-28] MEDS: Nitrofurantoin Macrocrystals 100 MG Capsule PO (18:28)
[2022-12-28] MEDS: Escitalopram Oxalate 10 MG Tablet PO (22:00)
[2022-12-28] MEDS: amLODIPine 5 MG Tablet PO (22:00)
[2022-12-29] VITALS (7 sets, daily range): BP systolic 138–155; BP diastolic 46–69; PULSE 82–88; RESP 14–16; TEMP 36.7–37; O2SAT 93–98
[2022-12-29] MEDS: Acetaminophen 325 MG Tablet 650 MG PO (05:11)
[2022-12-29 06:03] LABS: Absolute Lymphocyte Count 0.58 X10^3/uL (0.83-4.51); Basophil# 0.01 X10^3/uL; Basophil% 0.3 % (0-1); Eosinophil# 0.04 X10^3/uL; Eosinophils% 1.1 % (0-5); Hematocrit 31.1 % (37-47); Hemoglobin 10.1 g/dL (12.0-15.0); Lymphocyte # 0.58 X10^3/ul (0.83-4.51); Lymphocyte % 16.4 % (19-41); Mean Corp Hgb Conc 32.5 g/dL (32-36); Mean Corpuscular Hgb 30.1 pg (27.0-32.0); Mean Corpuscular Volume 92.8 fL (81-99); Mean Platelet Vol. 12.3 fl (6.2-12.0); Monocyte# 0.92 X10^3/uL; Monocyte% 26.1 % (0-10); NRBC Flagged by Analyzer 0 % (0-5); Neutrophil # 1.97 X10^3/uL (2.7-7.7); Neutrophil % 55.8 % (47-70); POSITIVE DIFFERENTIAL YES; Platelet Count 180 K/mm3 (150-450); RBC Distribution Width CV 11.7 % (11.6-14.6); RBC Distribution Width SD 39.8 fl (35.1-43.9); Red Blood Count 3.35 M/mm3 (4.2-5.4); White Blood Count 3.5 K/mm3 (4.4-11.0)
[2022-12-29 06:06] LABS: Differential Indicated SCAN CRITERIA MET
[2022-12-29 06:33] LABS: Anion Gap 4 (5-15); BUN 16 mg/dL (7-18); BUN/Creat Ratio 31.7 RATIO (10-20); Calcium,Total 8.3 mg/dL (8.5-10.1); Chloride 104 mmol/L (98-107); EST Glomerular Filtration Rate 129 mL/min (>60); Est Glom Filt Rate - Afr Amer 156 mL/min (>60); Estimated Creatinine Clearance 40.63 ml/min; Glucose 124 mg/dL (74-106); Magnesium 2.3 mg/dL (1.6-2.6); Phosphorus 3.3 mg/dL (2.5-4.9); Potassium 2.9 mmol/L (3.5-5.1); Sodium Level 141 mmol/L (136-145)
--- NOTE | 2022-12-29 07:47 | PCM.PN.HOSP ---
Reason for Visit Reason for Visit: Diagnoses Hemorrhage of anus and rectum (12/26/22) Nausea with vomiting, unspecified (12/26/22) Other fecal abnormalities (12/26/22) Subjective Subjective Patient underwent EGD and colonoscopy without any significant finding. Diagnostic data reviewed significant for potassium of 2.9 Objective Data Objective Data Vital Signs: Vital Signs Temp Pulse Resp BP Pulse Ox O2 Del Method O2 Flow Rate 98.4 F 84 16 151/55 H 94 Room Air 2 12/29/22 05:41 12/29/22 05:41 12/29/22 05:41 12/29/22 05:41 12/29/22 01:00 12/29/22 01:00 12/28/22 17:40 Oxygen Flow Rate (L/min) [At 0 REST on Room Air] Oxygen Flow Rate (L/min) [ 0 AMBULATING on Room Air] Oxygen Flow Rate (L/min) 2 Oxygen Delivery Method Room Air Weight: 55.157 kg Body Mass Index (BMI) 22.9 Intake & Output: Intake and Output for Last 24 Hours 12/27/22 12/28/22 12/29/22 23:59 23:59 23:59 Intake Total 2632.5 / 3072.5 1140 / 1140 60 / 60 Balance 2632.5 / 3072.5 1140 / 1140 60 / 60 Lab / Micro Data 12/29/22 04:58 12/29/22 04:58 Labs: Laboratory Results - last 24 hr 12/29/22 04:58: WBC 3.5 L, RBC 3.35 L, Hgb 10.1 L, Hct 31.1 L, MCV 92.8, MCH 30.1, MCHC 32.5, RDW Std Deviation 39.8, RDW Coeff of Tulio 11.7, Plt Count 180, MPV 12.3 H, Immature Gran % (Auto) 0.300, Neut % (Auto) 55.8, Lymph % (Auto) 16.4 L, [place] % (Auto) 26.1 H, Eos % (Auto) 1.1, Baso % (Auto) 0.3, Absolute Neuts (auto) 2.0, Absolute Lymphs (auto) 0.58 L, Nucleated RBC % 0, Diff Path Review May , Sodium 141, Potassium 2.9 L, Chloride 104, Carbon Dioxide 33.0 H, Anion Gap 4 L, BUN 16, Creatinine 0.50 L, Estim Creat Clear Calc 40.63, Est GFR (MDRD) Af Amer 156, Est GFR (MDRD) Non-Af 129, BUN/Creatinine Ratio 31.7 H, Glucose 124 H, Calcium 8.3 L, Phosphorus 3.3, Magnesium 2.3 Micro: Microbiology 12/26/22 07:50 Urine, Clean Catch Urine Culture - Preliminary Pseudomonas aeruginosa 12/27/22 09:05 Mucosa - Nasopharyngeal Respiratory Panel (PCR) - Final 12/26/22 09:10 Stool Stool Occult Blood (RUFINA) - Final Occult Blood Positive 12/26/22 07:50 Nasal Secretion SARS-CoV-2 & FLU Antigen (Rapid) - Final Physical Exam Narrative GENERAL: cooperative HEENT: Atraumatic; normocephalic EYES; Anicteric, Normal Conjunctiva NECK; supple, normal thyroid, RESPIRATORY: Diminished to auscultation CARDIOVASCULAR: Regular S1 S2, GI: soft, normoactive bowel sounds, : No Renal angle tenderness; EXTREMITIES: No edema, no clubbing, MUSCULOSKELETAL: no muscle wasting NEURO: Awake; no lateralizing signs. SKIN: No Rash PSYCH; Flat affect Assessment & Plan Assessment/Plan (1) Nausea & vomiting: QUALIFIERS: Vomiting type: unspecified Qualified Code(s): R11.2 - Nausea with vomiting, unspecified PLAN: Plan Patient is a 67-year-old lady admitted with intractable nausea and vomiting as well as generalized weakness admitted to regular nursing floor with consultation placed to general surgery 1. Intractable nausea vomiting ? Patient rehydrated with IV fluid consult placed to general surgery plan is for patient to undergo endoscopic evaluation by Dr. Garcia ? 12/29/2022 EGD and colonoscopy results as below Colonoscopy Impressions : - Preparation of the colon was fair. - Hemorrhoids found on perianal exam. - Diverticulosis in the descending colon, in the transverse colon and in the ascending colon. No specimens collected. - Multiple non-bleeding colonic angioectasias. No specimens collected. - Erythematous mucosa at the colonic anastomosis. No specimens collected. - Internal hemorrhoids. No specimens collected. Upper GI endoscopy Impressions : - Normal duodenal bulb, first portion of the duodenum and second portion of the duodenum. No specimens collected. - Multiple gastric polyps. No specimens collected. - Z-line regular, 40 cm from the incisors. No specimens collected. - Medium-sized hiatal hernia. No specimens collected. - The examination was otherwise normal. 2. Elevated troponin ? Secondary to demand ischemia. Echo ordered demonstrated normal EF 3. Anemia with occult positive stool ? Patient scheduled to undergo EGD and colonoscopy. Monitoring H&H every 6 hours with plans to transfuse if patient becomes symptomatic or hemoglobin falls below 7 4. Hypertension - Blood pressure controlled, home medications continued with dose adjustment as needed 5. GERD ? On PPI 6. Moderate pulmonary hypertension ? Currently stable plan is for patient to follow-up with PCP as outpatient 7. DVT prophylaxis ? Bilateral SCDs 8. Hypokalemia -Corrected per protocol Time spent in the patient's overall evaluation,decision-making process, review of diagnostic data, adjustment of management, discussion with other providers, nursing nursing and ancillary staff involved in patient's care documentation, 35 Minutes Charges/Coding Visit Charges Inpatient E&M: 07994 Subs Hosp L2
[2022-12-29] MEDS: Nitrofurantoin Macrocrystals 100 MG Capsule PO (08:49)
[2022-12-29] MEDS: Pantoprazole Sodium 40 MG Tablet PO (08:49)
[2022-12-29 10:13] LABS: Pathologist Review Reviewed
--- NOTE | 2022-12-29 11:15 | PCM.PN.SRG ---
Subjective Subjective Patient seen and examined during AM rounds. She reports some persistent weakness, but states overall she is improved. She tolerated clear liquids last evening. She states that she had some mild bright red blood per rectum following her scope yesterday. Objective Data Objective Data Vital Signs: Vital Signs Temp Pulse Resp BP Pulse Ox O2 Del Method O2 Flow Rate 98.6 F 85 14 141/48 H 93 Room Air 2 12/29/22 09:02 12/29/22 09:02 12/29/22 09:02 12/29/22 09:02 12/29/22 09:02 12/29/22 10:00 12/28/22 17:40 Oxygen Flow Rate (L/min) [At 0 REST on Room Air] Oxygen Flow Rate (L/min) [ 0 AMBULATING on Room Air] Oxygen Flow Rate (L/min) 2 Oxygen Delivery Method Room Air Weight: 121 lb 9.6 oz Body Mass Index (BMI) 22.9 Intake & Output: Intake and Output for Last 24 Hours 12/27/22 12/28/22 12/29/22 23:59 23:59 23:59 Intake Total 2632.5 / 3072.5 1140 / 1140 60 / 60 Balance 2632.5 / 3072.5 1140 / 1140 60 / 60 Lab / Micro Data 12/29/22 04:58 12/29/22 13:03 Labs: Laboratory Results - last 24 hr 12/28/22 04:56: Diff Path Review Reviewed 12/29/22 04:58: WBC 3.5 L, RBC 3.35 L, Hgb 10.1 L, Hct 31.1 L, MCV 92.8, MCH 30.1, MCHC 32.5, RDW Std Deviation 39.8, RDW Coeff of Tulio 11.7, Plt Count 180, MPV 12.3 H, Immature Gran % (Auto) 0.300, Neut % (Auto) 55.8, Lymph % (Auto) 16.4 L, [place] % (Auto) 26.1 H, Eos % (Auto) 1.1, Baso % (Auto) 0.3, Absolute Neuts (auto) 2.0, Absolute Lymphs (auto) 0.58 L, Nucleated RBC % 0, Diff Path Review October, Sodium 141, Potassium 2.9 L, Chloride 104, Carbon Dioxide 33.0 H, Anion Gap 4 L, BUN 16, Creatinine 0.50 L, Estim Creat Clear Calc 40.63, Est GFR (MDRD) Af Amer 156, Est GFR (MDRD) Non-Af 129, BUN/Creatinine Ratio 31.7 H, Glucose 124 H, Calcium 8.3 L, Phosphorus 3.3, Magnesium 2.3 Micro: Microbiology 12/26/22 07:50 Urine, Clean Catch Urine Culture - Final Pseudomonas aeruginosa 12/27/22 09:05 Mucosa - Nasopharyngeal Respiratory Panel (PCR) - Final 12/26/22 09:10 Stool Stool Occult Blood (RUFINA) - Final Occult Blood Positive 12/26/22 07:50 Nasal Secretion SARS-CoV-2 & FLU Antigen (Rapid) - Final Physical Exam Const oriented x3 and no apparent distress Resp normal respiratory effort GI GI Narrative: Soft, nondistended, nontender to palpation x4 quadrants Assessment & Plan Assessment/Plan (1) Occult blood positive stool: (2) Bright red blood per rectum: PLAN: Plan This is a 67-year-old female who is admitted for general weakness, and general signs and symptoms of an infection that has been yet to be fully characterized, but patient was diagnosed with probable UTI, who is evaluated for possible GI bleed as well. Given her hemoglobin decline as well as her Hemoccult positive stool, she was taken for upper and lower endoscopy yesterday following a bowel prep the evening prior. EGD was relatively unremarkable and colonoscopy did not show any evidence of acute bleeding, however, for possible sources were identified?pancolonic diverticulosis, angiectasias, mild mucosal erythema in the site of the colorectal anastomosis from prior sigmoid colectomy, and internal hemorrhoid. Patient's hemoglobin is once again stable today?10.1 from 10.2. She remains hemodynamically stable. Given her reassuring exam, these reassuring labs and vitals, I do not find further cause for intervention from a surgical standpoint. She exhibits further leukopenia and monocytosis with her CBC, but I question whether or not this could be further worked up as an outpatient. Case discussed with Dr. Burton, hospitalist, and he agrees with this assessment. From a scope standpoint, would recommend patient consider repeat upper and lower endoscopy 5 years from her prior upper and lower endoscopy in 2020 so that biopsies could be pursued and her reports of Stroud's esophagus could be adequately surveilled. Charges/Coding Visit Charges Inpatient E&M: 21920 Subs Hosp L2
[2022-12-29] MEDS: Potassium Chloride Oral Tablet 20 MEQ PO ×2 (11:20→15:44)
[2022-12-29] MEDS: Potassium Chloride 10mEq/100mL 10 MEQ/100 ML IV.SOLN. 100 MEQ IV BOLUS ×4 (11:20→15:44)
--- NOTE | 2022-12-29 11:35 | CASEMGMT ---
NARAYAN RAMOS Follow-up: This RN CM met with pt face to face at bedside to review DC plan. Pt states she plans to return home with the support of her family and denies any discharge needs at this time. Plan: DC home with support of family. Oliva Carlson RN CM
[2022-12-29 13:28] LABS: Anion Gap 5 (5-15); BUN 15 mg/dL (7-18); BUN/Creat Ratio 23.1 RATIO (10-20); Calcium,Total 8.7 mg/dL (8.5-10.1); Chloride 106 mmol/L (98-107); Creatinine, Serum 0.65 mg/dL (0.55-1.02); EST Glomerular Filtration Rate 96 mL/min (>60); Est Glom Filt Rate - Afr Amer 117 mL/min (>60); Estimated Creatinine Clearance 40.63 ml/min; Glucose 172 mg/dL (74-106); Potassium 3.1 mmol/L (3.5-5.1); Sodium Level 142 mmol/L (136-145)
--- NOTE | 2022-12-29 14:11 | DS.PCM_ITS ---
Providers Date of Admission: 12/26/22 Date of Discharge: 12/29/22 Primary Care Physician: Dr. Milagros Andrew MD Consultations 12/27/22 17:02 Consult: General Surgery Routine Consulting Provider: Fausto Garcia Reason for Consult: heme positive stool EMERGENT Consult: No MD Notified: Yes Date Notified: 12/27/22 Time Notified: 17:04 Method of Notification: Verbal Reason For Visit: VIRAL SYNDROME, ELEVATED TROPONIN Diagnosis Discharge Diagnosis (1) Occult blood positive stool: Status: Acute Code(s): R19.5 - Other fecal abnormalities (2) Bright red blood per rectum: Status: Acute Code(s): K62.5 - Hemorrhage of anus and rectum Plan Patient is a 67-year-old lady admitted with intractable nausea and vomiting as well as generalized weakness admitted to regular nursing floor with consultation placed to general surgery 1. Intractable nausea vomiting ? Patient rehydrated with IV fluid consult placed to general surgery plan is for patient to undergo endoscopic evaluation by Dr. Garcia ? 12/29/2022 EGD and colonoscopy results as below Colonoscopy Impressions : - Preparation of the colon was fair. - Hemorrhoids found on perianal exam. - Diverticulosis in the descending colon, in the transverse colon and in the ascending colon. No specimens collected. - Multiple non-bleeding colonic angioectasias. No specimens collected. - Erythematous mucosa at the colonic anastomosis. No specimens collected. - Internal hemorrhoids. No specimens collected. Upper GI endoscopy Impressions : - Normal duodenal bulb, first portion of the duodenum and second portion of the duodenum. No specimens collected. - Multiple gastric polyps. No specimens collected. - Z-line regular, 40 cm from the incisors. No specimens collected. - Medium-sized hiatal hernia. No specimens collected. - The examination was otherwise normal. 2. Elevated troponin ? Secondary to demand ischemia. Echo ordered demonstrated normal EF 3. Anemia with occult positive stool ? Patient scheduled to undergo EGD and colonoscopy. Monitoring H&H every 6 hour s with plans to transfuse if patient becomes symptomatic or hemoglobin falls below 7 4. Hypertension - Blood pressure controlled, home medications continued with dose adjustment as needed 5. GERD ? On PPI 6. Moderate pulmonary hypertension ? Currently stable plan is for patient to follow-up with PCP as outpatient 7. DVT prophylaxis ? Bilateral SCDs 8. Hypokalemia -Corrected per protocol Time spent in the patient's overall evaluation,decision-making process, review of diagnostic data, adjustment of management, discussion with other providers, nursing nursing and ancillary staff involved in patient's care documentation, 35 Minutes Medications at Discharge Home Medications calcium carbonate 600 mg calcium (1,500 mg) tablet (Calcium) 600 mg PO DAILY supplement 02/25/21 cholecalciferol (vitamin D3) 25 mcg (1,000 unit) capsule 4,000 unit PO DAILY vitamin 11/13/21 promethazine 12.5 mg tablet 12.5 mg PO TID PRN nausea and vomiting #20 tabs 01/23/22 fluticasone propionate 110 mcg/actuation HFA aerosol inhaler (Flovent HFA) 1 puff inhalation .daily aerosols #12 grams 04/15/22 inhalational spacing device (BreatheRite MDI Spacer) #2 ea 07/02/22 amlodipine 5 mg tablet 5 mg PO DAILY blood pressure #90 tabs 10/12/22 escitalopram oxalate 10 mg tablet 10 mg PO DAILY anxiety 12/26/22 benzonatate 200 mg capsule 200 mg PO TID PRN cough #20 caps 12/27/22 pantoprazole 40 mg tablet,delayed release 40 mg PO DAILY #30 tabs 12/27/22 ciprofloxacin HCl 500 mg tablet (Cipro) 500 mg PO BID #14 tabs 12/29/22 potassium chloride 20 mEq tablet,extended release(part/cryst) (Klor-Con M) 20 meq PO BIDCM #20 tabs 12/29/22 Hospital Course Summary of Care Provided Minutes Spent on Discharge: 35 Physical Exam Narrative GENERAL: cooperative HEENT: Atraumatic; normocephalic EYES; Anicteric, Normal Conjunctiva NECK; supple, normal thyroid, RESPIRATORY: Diminished to auscultation CARDIOVASCULAR: Regular S1 S2, GI: soft, normoactive bowel sounds, : No Renal angle tenderness; EXTREMITIES: No edema, no clubbing, MUSCULOSKELETAL: no muscle wasting NEURO: Awake; no lateralizing signs. SKIN: No Rash PSYCH; Flat affect Weight / BMI Weight Weight: 55.157 kg Body Mass Index (BMI) 22.9 ABG / Lab / Microbiology Data 12/29/22 04:58 12/29/22 13:03 Laboratory: Laboratory Results - last 24 hr 12/28/22 04:56: Diff Path Review Reviewed 12/29/22 04:58: WBC 3.5 L, RBC 3.35 L, Hgb 10.1 L, Hct 31.1 L, MCV 92.8, MCH 30.1, MCHC 32.5, RDW Std Deviation 39.8, RDW Coeff of Tulio 11.7, Plt Count 180, MPV 12.3 H, Immature Gran % (Auto) 0.300, Neut % (Auto) 55.8, Lymph % (Auto) 16.4 L, [place] % (Auto) 26.1 H, Eos % (Auto) 1.1, Baso % (Auto) 0.3, Absolute Neuts (auto) 2.0, Absolute Lymphs (auto) 0.58 L, Nucleated RBC % 0, Diff Path Review October foll, Sodium 141, Potassium 2.9 L, Chloride 104, Carbon Dioxide 33.0 H, Anion Gap 4 L, BUN 16, Creatinine 0.50 L, Estim Creat Clear Calc 40.63, Est GFR (MDRD) Af Amer 156, Est GFR (MDRD) Non-Af 129, BUN/Creatinine Ratio 31.7 H, Glucose 124 H, Calcium 8.3 L, Phosphorus 3.3, Magnesium 2.3 12/29/22 13:03: Sodium 142, Potassium 3.1 L, Chloride 106, Carbon Dioxide 31.0, Anion Gap 5, BUN 15, Creatinine 0.65, Estim Creat Clear Calc 40.63, Est GFR (MDRD) Af Amer 117, Est GFR (MDRD) Non-Af 96, BUN/Creatinine Ratio 23.1 H, G lucose 172 H, Calcium 8.7 Microbiology: Microbiology 12/26/22 07:50 Urine, Clean Catch Urine Culture - Final Pseudomonas aeruginosa 12/27/22 09:05 Mucosa - Nasopharyngeal Respiratory Panel (PCR) - Final 12/26/22 09:10 Stool Stool Occult Blood (RUFINA) - Final Occult Blood Positive 12/26/22 07:50 Nasal Secretion SARS-CoV-2 & FLU Antigen (Rapid) - Final D/C Instructions Discharge Diet: No restrictions Discharge Activity: Return to Normal Activity Weight Bearing Status: Full weight bearing Call your doctor if you observe: Fever of 101 or Higher, Shortness of breath, Fainting spells and Chest pain Meaningful Use Info Meaningful Use Diagnoses (Choose all that apply): None applicable Discharge Plan Admission Admit Date/Time: 12/26/22 10:24 Primary Reason for Your Visit: nausea/vomiting, anemia, heme positive stool Attending Provider: Markos Burton Primary Care Provider: Milagros Andrew Consulting Providers: Fausto Garcia; Aneudy Santillan Discharge Orders/Prescriptions Prescriptions: New pantoprazole 40 mg Tablet,Delayed Release (Dr/Ec) 40 mg PO DAILY Qty: 30 0RF benzonatate 200 mg capsule 200 mg PO TID PRN (Reason: cough) Qty: 20 0RF potassium chloride [Klor-Con M20] 20 mEq Tablet,Er Particles/Crystals 20 meq PO BIDCM Qty: 20 0RF ciprofloxacin HCl [Cipro] 500 mg tablet 500 mg PO BID Qty: 14 0RF Continued calcium carbonate [Calcium 600] 600 mg calcium (1,500 mg) tablet 600 mg PO DAILY cholecalciferol (vitamin D3) 25 mcg (1,000 unit) capsule 4,000 unit PO DAILY promethazine 12.5 mg tablet 12.5 mg PO TID PRN (Reason: nausea and vomiting) Qty: 20 0RF (DME) BreatheRite MDI Spacer Spacer See Rx Instructions .Route Qty: 2 0RF Rx Instructions: As directed amlodipine 5 mg tablet 5 mg PO DAILY Qty: 90 1RF escitalopram oxalate 10 mg tablet 10 mg PO DAILY Patient Comments: take 1 tablet by mouth once daily fluticasone propionate [Flovent HFA] 110 mcg/actuation HFA aerosol inhaler 1 puff inhalation .daily Qty: 12 2RF Referrals / Follow Up: Milagros Andrew MD [Primary Care Provider] - Within 1 Week (You will need an EGD and colonoscopy scheduled because you have blood in your stool) Disposition Disposition (needs filled in before D/C Order can be placed): Home, Self Care Charges/Coding Visit Charges Inpatient E&M: 17312 Disch Hosp >30min
--- NOTE | 2022-12-29 14:50 | PHA.DC_ITS ---
Pharmacy [facility] has performed discharge medication reconciliation and counseling for this patient. 1. BENZONATATE 200MG PO TID PRN COUGH 2. CIPROFLOXACIN 500MG PO BID 3. PANTOPRAZOLE 40MG PO DAILY 4. POTASSIUM CHLORIDE 20MG PO BIDCM The patient's discharge medication list was reviewed for discrepancies and discrepancies were resolved. The patient was counseled on the following discharge medications and changes in medications for homegoing were reviewed. The Reason for Use, instructions for use, and potential side effects were reviewed for all new medications. The patient's questions regarding all of their medications were answered. The patient was able to verbally demonstrate an understanding of their discharge medications. Patient counseled by hospital pharmacy technicianMarcus. Medications at Discharge Home Medications calcium carbonate 600 mg calcium (1,500 mg) tablet (Calcium) 600 mg PO DAILY supplement 02/25/21 cholecalciferol (vitamin D3) 25 mcg (1,000 unit) capsule 4,000 unit PO DAILY vitamin 11/13/21 promethazine 12.5 mg tablet 12.5 mg PO TID PRN nausea and vomiting #20 tabs 01/23/22 fluticasone propionate 110 mcg/actuation HFA aerosol inhaler (Flovent HFA) 1 puff inhalation .daily aerosols #12 grams 04/15/22 inhalational spacing device (BreatheRite MDI Spacer) #2 ea 07/02/22 amlodipine 5 mg tablet 5 mg PO DAILY blood pressure #90 tabs 10/12/22 escitalopram oxalate 10 mg tablet 10 mg PO DAILY anxiety 12/26/22 benzonatate 200 mg capsule 200 mg PO TID PRN cough #20 caps 12/27/22 pantoprazole 40 mg tablet,delayed release 40 mg PO DAILY #30 tabs 12/27/22 ciprofloxacin HCl 500 mg tablet (Cipro) 500 mg PO BID #14 tabs 12/29/22 potassium chloride 20 mEq tablet,extended release(part/cryst) (Klor-Con M) 20 meq PO BIDCM #20 tabs 12/29/22
[2022-12-30 10:12] LABS: Pathologist Review Reviewed
== END 2022-12-29 10:24 | disposition home or self-care (01) ==
LOC: ED 09:31 → PCU 11:17
PROVIDERS: Surgery; Admitting Provider Internal Medicine; Emergency Provider Student in an Organized Health Care Education/Training Program; PCP Internal Medicine; Visit Provider Internal Medicine
PROC: 0DJD8ZZ Inspection of Lower Intestinal Tract, Via Natural or Artificial Opening Endoscopic (ICD-10-PCS; CPT 45378; principal; 2022-12-28 14:55)
DX: R11.2 Nausea with vomiting, unspecified (principal); I27.20 Pulmonary hypertension, unspecified; I24.8 Other forms of acute ischemic heart disease; K44.9 Diaphragmatic hernia without obstruction or gangrene; K31.7 Polyp of stomach and duodenum; Z86.010 Personal history of colon polyps; R53.81 Other malaise; K57.30 Diverticulosis of large intestine without perforation or abscess without bleeding; K21.9 Gastro-esophageal reflux disease without esophagitis; K64.8 Other hemorrhoids; E87.6 Hypokalemia; K62.5 Hemorrhage of anus and rectum; Z79.51 Long term (current) use of inhaled steroids; R53.1 Weakness; R09.02 Hypoxemia; D64.9 Anemia, unspecified; I10 Essential (primary) hypertension; F41.9 Anxiety disorder, unspecified; R06.02 Shortness of breath; F32.A Depression, unspecified; J45.909 Unspecified asthma, uncomplicated; Z79.899 Other long term (current) drug therapy
CPT/HCPCS: 43235; 45378; 36415; 71045; 80048; 80053; 81001; 82274; 83605; 83735; 84100; 84484; 85014; 85018; 85025; 85379; 85610; 85730; 86850; 86900; 86901; 87040; 87077; 87086; 87088; 87184; 87186; 87428; 87633; 93005; 93306; 96361; 96365; 96366; 96375; 99221; 99285; J7030; J7120; A4216; G0378; J2405

== ENCOUNTER → 2023-01-06 | Outpatient (CLI) | payer MEDICARE, SELFPAY ==
[2023-01-06 12:28] LABS: Absolute Lymphocyte Count 0.83 X10^3/uL (0.83-4.51); Absolute Neutrophil Count 2.1 X10^3/uL (2.0-7.7); Basophil# 0.01 X10^3/uL; Basophil% 0.3 % (0-1); Eosinophil# 0.14 X10^3/uL; Eosinophils% 3.8 % (0-5); Hematocrit 34.5 % (37-47); Lymphocyte # 0.83 X10^3/ul (0.83-4.51); Lymphocyte % 22.4 % (19-41); Mean Corp Hgb Conc 31.9 g/dL (32-36); Mean Corpuscular Hgb 30.1 pg (27.0-32.0); Mean Corpuscular Volume 94.3 fL (81-99); Mean Platelet Vol. 12.3 fl (6.2-12.0); Monocyte# 0.63 X10^3/uL; NRBC Flagged by Analyzer 0 % (0-5); Neutrophil # 2.08 X10^3/uL (2.7-7.7); Neutrophil % 56.2 % (47-70); Platelet Count 290 K/mm3 (150-450); RBC Distribution Width CV 11.9 % (11.6-14.6); RBC Distribution Width SD 41.4 fl (35.1-43.9); Red Blood Count 3.66 M/mm3 (4.2-5.4); White Blood Count 3.7 K/mm3 (4.4-11.0)
[2023-01-06 13:02] LABS: Hemoglobin A1c 5.6 % (3.8-5.6)
[2023-01-06 13:07] LABS: ALB/GLOB Ratio 0.9 RATIO (0.9-2.4); AST(SGOT) 42 U/L (15-37); Alanine Aminotransfer ALT/SGPT 65 U/L (13-56); Albumin, Serum 2.8 g/dL (3.2-5.0); Alkaline Phosphatase 90 U/L (45-117); Anion Gap 8 (5-15); BUN 13 mg/dL (7-18); BUN/Creat Ratio 29.1 RATIO (10-20); Chloride 107 mmol/L (98-107); Creatinine, Serum 0.45 mg/dL (0.55-1.02); EST Glomerular Filtration Rate 148 mL/min (>60); Est Glom Filt Rate - Afr Amer 179 mL/min (>60); Glucose 107 mg/dL (74-106); Potassium 4.2 mmol/L (3.5-5.1); Protein, Total 5.8 g/dL (6.4-8.2); Sodium Level 141 mmol/L (136-145)
== END | disposition home or self-care (01) ==
LOC: BIMLAB 08:29
PROVIDERS: PCP Internal Medicine; Visit Provider Internal Medicine
DX: E87.6 Hypokalemia (principal); N39.0 Urinary tract infection, site not specified; K62.5 Hemorrhage of anus and rectum; R73.09 Other abnormal glucose
CPT/HCPCS: 36415; 80053; 83036; 85025

== ENCOUNTER → 2023-01-21 | Outpatient (CLI) | payer MEDICARE, SELFPAY ==
--- NOTE | 2023-01-21 13:55 | VDLE_ITS ---
Reason For Study: swelling RIGHT LEFT GSV is normal. CFV is compressible, spontaneous, competent, CFV is compressible, spontaneous, competent and demonstrates pulsatile venous flow. and demonstrates pulsatile venous flow. FV is compressible, spontaneous, competent and demonstrates pulsatile venous flow. POP V is compressible, spontaneous, competent and demonstrates pulsatile venous flow. T/P Trunk is compressible. PTV is compressible. RT PerV is compressible. Procedure This is a venous duplex using B-mode, color flow and spectral Doppler. Exam performed in department. The exam was diagnostic. A preliminary report was called and/or faxed to Dr. Andrew. VL/Venous Duplex US, Unilateral Interpretation Summary Deep veins of the right lower extremity are patent and compressible segmentally . There is no evidence of right lower extremity deep vein thrombosis. Valvular competence case ears intact within the proximal deep venous system on the right . The right great saphenous vein a ppears patent and compressible segmentally. The left common femoral vein is patent and compressib le . Pulsatile flow is noted in the deep venous system bilaterally, which may be indicative of elev ated central venous pressure (i.e. congestive heart failure, pulmonary hypertension, etc.). Clinica l correlation is advised. Ordering Physician: Milagros Andrew Performed By: Francis Flores RVT
[2023-01-21 14:29] LABS: Absolute Lymphocyte Count 0.83 X10^3/uL (0.83-4.51); Basophil# 0.02 X10^3/uL; Basophil% 0.5 % (0-1); Eosinophils% 2.6 % (0-5); Hematocrit 34.4 % (37-47); Hemoglobin 10.8 g/dL (12.0-15.0); Lymphocyte # 0.83 X10^3/ul (0.83-4.51); Lymphocyte % 21.6 % (19-41); Mean Corp Hgb Conc 31.4 g/dL (32-36); Mean Corpuscular Hgb 29.3 pg (27.0-32.0); Mean Corpuscular Volume 93.5 fL (81-99); Mean Platelet Vol. 11.7 fl (6.2-12.0); Monocyte% 23.4 % (0-10); NRBC Flagged by Analyzer 0 % (0-5); Neutrophil # 1.99 X10^3/uL (2.7-7.7); Neutrophil % 51.6 % (47-70); Platelet Count 211 K/mm3 (150-450); RBC Distribution Width CV 12.8 % (11.6-14.6); RBC Distribution Width SD 43.8 fl (35.1-43.9); Red Blood Count 3.68 M/mm3 (4.2-5.4); White Blood Count 3.9 K/mm3 (4.4-11.0)
[2023-01-21 15:25] LABS: ALB/GLOB Ratio 1.1 RATIO (0.9-2.4); AST(SGOT) 31 U/L (15-37); Alanine Aminotransfer ALT/SGPT 49 U/L (13-56); Albumin, Serum 3.1 g/dL (3.2-5.0); Alkaline Phosphatase 84 U/L (45-117); Anion Gap 3 (5-15); BUN 11 mg/dL (7-18); BUN/Creat Ratio 17.2 RATIO (10-20); Calcium,Total 8.6 mg/dL (8.5-10.1); Chloride 109 mmol/L (98-107); Creatinine, Serum 0.64 mg/dL (0.55-1.02); EST Glomerular Filtration Rate 98 mL/min (>60); Est Glom Filt Rate - Afr Amer 118 mL/min (>60); Globulin 2.7 g/dL (2.2-4.2); Glucose 107 mg/dL (74-106); Potassium 3.9 mmol/L (3.5-5.1); Protein, Total 5.8 g/dL (6.4-8.2); Sodium Level 143 mmol/L (136-145); Thyroid Stim Hormone (TSH) < 0.01 uIU/mL (0.358-3.74)
[2023-01-21 16:18] LABS: T4 Free Direct 6.95 ng/dL (0.76-1.46)
== END | disposition home or self-care (01) ==
PROVIDERS: PCP Internal Medicine; Referring Provider Internal Medicine; Visit Provider Internal Medicine
DX: M79.89 Other specified soft tissue disorders (principal); I10 Essential (primary) hypertension; E87.6 Hypokalemia; R49.0 Dysphonia; R94.6 Abnormal results of thyroid function studies
CPT/HCPCS: 36415; 80053; 84439; 84443; 85025; 93971

== ENCOUNTER → 2023-01-22 | Outpatient (CLI) | payer MEDICARE, SELFPAY ==
[2023-01-22 12:54] LABS: T3 Total - Triiodothyronine 5.63 ng/mL (0.6-1.81)
[2023-01-25 15:08] LABS: Thyroid Peroxidase AB < 9 IU/mL (0-34); Thyroid Stim Immunoglob 0.18 IU/L (0.00-0.55)
== END | disposition home or self-care (01) ==
LOC: BIMLAB 09:50
PROVIDERS: PCP Internal Medicine; Referring Provider Internal Medicine; Visit Provider Internal Medicine
DX: R94.6 Abnormal results of thyroid function studies (principal)
CPT/HCPCS: 36415; 84445; 84480; 86376

== ENCOUNTER → 2023-02-15 | Outpatient (CLI) | payer MEDICARE, SELFPAY ==
[2023-02-15 10:50] LABS: Free T3 5.8 pg/mL (2.18-3.98); T4 Free Direct 2.17 ng/dL (0.76-1.46); Thyroid Stim Hormone (TSH) < 0.01 uIU/mL (0.358-3.74)
== END | disposition home or self-care (01) ==
LOC: LAB 09:32
PROVIDERS: PCP Internal Medicine; Referring Provider Internal Medicine Endocrinology, Diabetes & Metabolism; Visit Provider Internal Medicine Endocrinology, Diabetes & Metabolism
DX: E05.90 Thyrotoxicosis, unspecified without thyrotoxic crisis or storm (principal); I10 Essential (primary) hypertension
CPT/HCPCS: 36415; 84439; 84443; 84481

== ENCOUNTER → 2023-03-09 | Outpatient (CLI) | payer MEDICARE, SELFPAY ==
[2023-03-09 10:50] LABS: Free T3 2.9 pg/mL (2.18-3.98); T4 Free Direct 1.06 ng/dL (0.76-1.46); Thyroid Stim Hormone (TSH) < 0.01 uIU/mL (0.358-3.74)
== END | disposition home or self-care (01) ==
LOC: LAB 09:13
PROVIDERS: PCP Internal Medicine; Referring Provider Internal Medicine Endocrinology, Diabetes & Metabolism; Visit Provider Internal Medicine Endocrinology, Diabetes & Metabolism
DX: E05.90 Thyrotoxicosis, unspecified without thyrotoxic crisis or storm (principal)
CPT/HCPCS: 36415; 84439; 84443; 84481

== ENCOUNTER → 2023-04-08 | Outpatient (CLI) | payer MEDICARE, SELFPAY ==
[2023-04-08 13:54] LABS: T4 Free Direct 0.58 ng/dL (0.76-1.46); Thyroid Stim Hormone (TSH) 0.37 uIU/mL (0.358-3.74)
== END | disposition home or self-care (01) ==
LOC: LAB 11:57
PROVIDERS: PCP Internal Medicine; Referring Provider Internal Medicine Endocrinology, Diabetes & Metabolism; Visit Provider Internal Medicine Endocrinology, Diabetes & Metabolism
DX: E05.90 Thyrotoxicosis, unspecified without thyrotoxic crisis or storm (principal)
CPT/HCPCS: 36415; 84439; 84443; 84481

== ENCOUNTER → 2023-05-03 | Outpatient (CLI) | payer MEDICARE, SELFPAY ==
[2023-05-03 10:58] LABS: Vitamin D,25 Hydroxy 48.7 ng/mL
[2023-05-03 11:00] LABS: ALB/GLOB Ratio 1.2 RATIO (0.9-2.4); AST(SGOT) 24 U/L (15-37); Alanine Aminotransfer ALT/SGPT 28 U/L (13-56); Albumin, Serum 3.9 g/dL (3.2-5.0); Alkaline Phosphatase 160 U/L (45-117); Anion Gap 5 (5-15); BUN 16 mg/dL (7-18); BUN/Creat Ratio 18.5 RATIO (10-20); Calcium,Total 8.8 mg/dL (8.5-10.1); Chloride 105 mmol/L (98-107); Creatinine, Serum 0.86 mg/dL (0.55-1.02); EST Glomerular Filtration Rate 69 mL/min (>60); Est Glom Filt Rate - Afr Amer 84 mL/min (>60); Globulin 3.3 g/dL (2.2-4.2); Glucose 138 mg/dL (74-106); Potassium 3.6 mmol/L (3.5-5.1); Protein, Total 7.2 g/dL (6.4-8.2); Sodium Level 141 mmol/L (136-145); T4 Free Direct 0.46 ng/dL (0.76-1.46); Thyroid Stim Hormone (TSH) 9.78 uIU/mL (0.358-3.74)
== END | disposition home or self-care (01) ==
LOC: LAB 09:05
PROVIDERS: PCP Internal Medicine; Referring Provider Internal Medicine Endocrinology, Diabetes & Metabolism; Visit Provider Internal Medicine Endocrinology, Diabetes & Metabolism
DX: E55.9 Vitamin D deficiency, unspecified (principal); M81.0 Age-related osteoporosis without current pathological fracture; E05.90 Thyrotoxicosis, unspecified without thyrotoxic crisis or storm
CPT/HCPCS: 36415; 80053; 82306; 84439; 84443; 84481

== ENCOUNTER → 2023-05-22 | Outpatient (CLI) | payer MEDICARE, SELFPAY ==
[2023-05-22 11:05] LABS: Free T3 2.6 pg/mL (2.18-3.98); T4 Free Direct 0.87 ng/dL (0.76-1.46); Thyroid Stim Hormone (TSH) 0.54 uIU/mL (0.358-3.74)
== END | disposition home or self-care (01) ==
LOC: LAB 10:10
PROVIDERS: PCP Internal Medicine; Referring Provider Internal Medicine Endocrinology, Diabetes & Metabolism; Visit Provider Internal Medicine Endocrinology, Diabetes & Metabolism
DX: E05.90 Thyrotoxicosis, unspecified without thyrotoxic crisis or storm (principal); I10 Essential (primary) hypertension
CPT/HCPCS: 36415; 84439; 84443; 84481

== ENCOUNTER 2023-06-15 13:43 | Outpatient (CLI) | payer MEDICARE, SELFPAY ==
[2023-06-15 14:05] VITALS: BP 159/51; PULSE 68; RESP 16; TEMP 36.2; O2SAT 97; BMI 23.6
[2023-06-15] MEDS: Zoledronic Acid 5 MG 100 ML 300 MG IV (14:35)
[2023-06-15] MEDS: 0.9% NaCl Peripheral Flush Adult/Peds IV (14:35)
[2023-06-15 14:57] VITALS: BP 153/61; PULSE 56; RESP 16; TEMP 36.2
== END 2023-06-15 13:44 | disposition home or self-care (01) ==
LOC: MEDOUTP 13:45
PROVIDERS: PCP Internal Medicine; Referring Provider Internal Medicine Endocrinology, Diabetes & Metabolism; Visit Provider Internal Medicine Endocrinology, Diabetes & Metabolism
DX: M81.0 Age-related osteoporosis without current pathological fracture (principal)
CPT/HCPCS: 96365; A4216; J3489

== ENCOUNTER → 2023-07-12 | Outpatient (CLI) | payer MEDICARE, SELFPAY ==
[2023-07-12 14:17] LABS: Anion Gap 7 (5-15); BUN 17 mg/dL (7-18); BUN/Creat Ratio 23.4 RATIO (10-20); Calcium,Total 8.7 mg/dL (8.5-10.1); Chloride 108 mmol/L (98-107); Creatinine, Serum 0.72 mg/dL (0.55-1.02); EST Glomerular Filtration Rate 85 mL/min (>60); Est Glom Filt Rate - Afr Amer 102 mL/min (>60); Glucose 138 mg/dL (74-106); Potassium 3.6 mmol/L (3.5-5.1); Sodium Level 144 mmol/L (136-145)
[2023-07-12 14:22] LABS: Vitamin D,25 Hydroxy 44.9 ng/mL
[2023-07-14 09:33] LABS: Free T3 2.4 pg/mL (2.18-3.98); T4 Free Direct 1.03 ng/dL (0.76-1.46); Thyroid Stim Hormone (TSH) 0.82 uIU/mL (0.358-3.74)
== END | disposition home or self-care (01) ==
LOC: LAB 13:28
PROVIDERS: PCP Internal Medicine; Visit Provider Internal Medicine Endocrinology, Diabetes & Metabolism
DX: E05.90 Thyrotoxicosis, unspecified without thyrotoxic crisis or storm (principal); E55.9 Vitamin D deficiency, unspecified
CPT/HCPCS: 36415; 80048; 82306; 84439; 84443; 84481

== ENCOUNTER → 2023-07-22 | Outpatient (CLI) | payer MEDICARE, SELFPAY ==
--- NOTE | 2023-07-22 15:58 | BI_ITS ---
MAMMOGRAPHY - BILATERAL SCREENING REASON FOR EXAM: Female, 68 years old. Routine annual screening examination. PERTINENT HISTORY: Mother with breast cancer. Aunt with breast cancer. TECHNIQUE: Digital bilateral breast rohan (3D mammographic acquisition) in the CC and MLO projections. 2-D mediolateral oblique (MLO) and craniocaudad (CC) views of both breasts were obtained. CAD: Full Field Digital Mammography with Computer Added Detection was performed. COMPARISON: Comparison is made with prior study dated July 20, 2022 and July 16, 2021. FINDINGS: Breast Composition: The breasts are extremely dense, which lowers the sensitivity of mammography. There are no dominant masses or suspicious calcifications. No other significant abnormalities are identified. There has been no significant change since the prior study. BI/SCRN MAMM (CAD)W/ROHAN BILAT IMPRESSION: Stable bilateral screening mammogram. Yearly follow-up mammogram recommended. (A) ASSESSMENT CATEGORY: BIRADS Category 1: Negative. A letter regarding these results will be sent to the patient by the facility within 30 days. Approximately 10% of breast cancers are not detected by mammography. A normal mammogram should not delay biopsy of a clinically suspicious abnormality. [id number] Electronically Signed: Feroz Sears MD at 8:45 EST ,
== END | disposition home or self-care (01) ==
LOC: OPBI 15:58
PROVIDERS: PCP Internal Medicine; Referring Provider Internal Medicine; Visit Provider Internal Medicine
DX: Z12.31 Encounter for screening mammogram for malignant neoplasm of breast (principal)
CPT/HCPCS: 77063; 77067

== ENCOUNTER → 2023-11-15 | Outpatient (CLI) | payer MEDICARE, SELFPAY ==
[2023-11-15 15:58] LABS: Absolute Lymphocyte Count 1.55 X10^3/uL (0.83-4.51); Basophil# 0.07 X10^3/uL; Basophil% 1.1 % (0-1); Eosinophil# 0.16 X10^3/uL; Eosinophils% 2.5 % (0-5); Hematocrit 39.7 % (37-47); Hemoglobin 12.9 g/dL (12.0-15.0); Lymphocyte # 1.55 X10^3/ul (0.83-4.51); Lymphocyte % 24.2 % (19-41); Mean Corp Hgb Conc 32.5 g/dL (32-36); Mean Corpuscular Hgb 30.9 pg (27.0-32.0); Mean Platelet Vol. 11.4 fl (6.2-12.0); Monocyte# 0.62 X10^3/uL; Monocyte% 9.7 % (0-10); NRBC Flagged by Analyzer 0 % (0-5); Neutrophil # 3.98 X10^3/uL (2.7-7.7); Platelet Count 247 K/mm3 (150-450); RBC Distribution Width CV 13.2 % (11.6-14.6); RBC Distribution Width SD 46.6 fl (35.1-43.9); Red Blood Count 4.18 M/mm3 (4.2-5.4); White Blood Count 6.4 K/mm3 (4.4-11.0)
[2023-11-15 16:45] LABS: ALB/GLOB Ratio 1.4 RATIO (0.9-2.4); AST(SGOT) 31 U/L (15-37); Alanine Aminotransfer ALT/SGPT 27 U/L (13-56); Alkaline Phosphatase 105 U/L (45-117); Anion Gap 5 (5-15); BUN 17 mg/dL (7-18); BUN/Creat Ratio 20.4 RATIO (10-20); Calcium,Total 9.2 mg/dL (8.5-10.1); Chloride 106 mmol/L (98-107); Cholesterol 181 mg/dL (200); Creatinine, Serum 0.83 mg/dL (0.55-1.02); EST Glomerular Filtration Rate 72 mL/min (>60); Est Glom Filt Rate - Afr Amer 87 mL/min (>60); Globulin 2.9 g/dL (2.2-4.2); Glucose 118 mg/dL (74-106); High Density Lipoprotein 80 mg/dL; Potassium 3.9 mmol/L (3.5-5.1); Protein, Total 6.9 g/dL (6.4-8.2); Sodium Level 140 mmol/L (136-145); Triglycerides 188 mg/dL; Very Low Density Lipoprotein 38 mg/dL (5-40)
[2023-11-15 16:54] LABS: Free T3 2.3 pg/mL (2.18-3.98); Thyroid Stim Hormone (TSH) 0.98 uIU/mL (0.358-3.74)
== END | disposition home or self-care (01) ==
LOC: LAB 14:58
PROVIDERS: PCP Internal Medicine; Visit Provider Internal Medicine Endocrinology, Diabetes & Metabolism
DX: I10 Essential (primary) hypertension (principal); J45.991 Cough variant asthma; M81.0 Age-related osteoporosis without current pathological fracture; E05.90 Thyrotoxicosis, unspecified without thyrotoxic crisis or storm
CPT/HCPCS: 36415; 80053; 80061; 84439; 84443; 84481; 85025

== ENCOUNTER → 2024-03-02 | Outpatient (CLI) | payer MEDICARE, SELFPAY ==
[2024-03-02 10:46] LABS: Free T3 2.5 pg/mL (2.18-3.98); T4 Free Direct 1.16 ng/dL (0.76-1.46)
== END | disposition home or self-care (01) ==
LOC: LAB 09:13
PROVIDERS: PCP Internal Medicine; Referring Provider Internal Medicine Endocrinology, Diabetes & Metabolism; Visit Provider Internal Medicine Endocrinology, Diabetes & Metabolism
DX: E05.90 Thyrotoxicosis, unspecified without thyrotoxic crisis or storm (principal)
CPT/HCPCS: 36415; 84439; 84443; 84481

== ENCOUNTER 2024-06-30 12:15 | Outpatient (CLI) | payer MEDICARE, SELFPAY ==
[2024-06-30 12:28] VITALS: BP 131/53; PULSE 76; RESP 16; TEMP 36.6; O2SAT 96; BMI 25.4
[2024-06-30] MEDS: 0.9% NaCl Peripheral Flush Adult/Peds IV (12:39)
[2024-06-30] MEDS: Zoledronic Acid 5 MG 100 ML 300 MG IV (12:40)
[2024-06-30 13:18] VITALS: BP 139/50; PULSE 64; RESP 16; TEMP 36.2; O2SAT 96
== END 2024-06-30 23:59 | disposition home or self-care (01) ==
LOC: MEDOUTP 12:16
PROVIDERS: PCP Internal Medicine; Referring Provider Internal Medicine Endocrinology, Diabetes & Metabolism; Visit Provider Internal Medicine Endocrinology, Diabetes & Metabolism
DX: M81.0 Age-related osteoporosis without current pathological fracture (principal)
CPT/HCPCS: 96365; A4216; J3489

== ENCOUNTER → 2024-08-09 | Outpatient (CLI) | payer MEDICARE, SELFPAY ==
--- NOTE | 2024-08-09 11:00 | BI_ITS ---
PROCEDURE: SCRN MAMM (CAD)W/ROHAN BILAT REASON FOR EXAM: F, Age 69 y/o, presents for annual screening mammogram. Family history of breast cancer in her mother in her 50s and maternal aunt in her 60s. TECHNIQUE: Bilateral screening digital breast tomosynthesis with 2D and 3D images. Computer aided detection. COMPARISON: 07/22/2023, 07/20/2022 FINDINGS: The breasts are extremely dense which lowers the sensitivity of mammography. The mammogram demonstrates that the patient has dense breasts. Supplemental screening with whole breast ultrasound or MRI may be considered for further evaluation. There is a mass in the retroareolar right breast, it has increased in size. No suspicious masses, areas of developing architectural distortion, or suspicious calcifications left breast. BI/SCRN MAMM (CAD)W/ROHAN BILAT IMPRESSION: Mass in the retroareolar right breast requires further evaluation. Recommend d iagnostic ultrasound of the right breast. BI-RADS 0: INCOMPLETE - NEED ADDITIONAL IMAGING EVALUATION. Follow-up code: Additional Views obtained/call backs The patient will be notified of the results by letter. Reading Location: [id number]
== END | disposition home or self-care (01) ==
LOC: OPBI 10:52
PROVIDERS: PCP Internal Medicine; Referring Provider Internal Medicine; Visit Provider Internal Medicine
DX: Z12.31 Encounter for screening mammogram for malignant neoplasm of breast (principal)
CPT/HCPCS: 77063; 77067

== ENCOUNTER → 2024-08-11 | Outpatient (CLI) | payer MEDICARE, SELFPAY ==
--- NOTE | 2024-08-11 11:02 | US_ITS ---
PROCEDURE: BREAST LIMITED UNILATERAL REASON FOR EXAM: 69-year-old female presents for follow-up of the right breast findings seen on the mammogram of 08/09/2024. Family history of breast cancer in her mother in her 50s and maternal aunt in her 60s TECHNIQUE: Targeted right breast ultrasound. COMPARISON: Mammogram 08/09/2024 FINDINGS: RIGHT: Follow-up examination performed further right breast mass visualized on the examination of 08/09/2024. Ultrasound of the right breast demonstrates a 0.4 x 0.3 x 0.2 cm cyst in the right retroareolar region, which is inappropriate correlate for the mammographic finding. Otherwise, there are some mildly dilated ducts in the retroareolar region without evidence of intraductal mass. There are no suspicious sonographic findings. US/Breast Limited Unilateral IMPRESSION: Cyst in the retroareolar right breast is benign. There are no suspicious sonog raphic findings. BI-RADS 2: BENIGN. RECOMMEND ANNUAL MAMMOGRAPHIC SCREENING. Follow-up code: Routine Follow-up Reading Location: [id number]
== END | disposition home or self-care (01) ==
PROVIDERS: PCP Internal Medicine; Referring Provider Internal Medicine; Visit Provider Internal Medicine
DX: R92.8 Other abnormal and inconclusive findings on diagnostic imaging of breast (principal)
CPT/HCPCS: 76642

== ENCOUNTER → 2024-08-30 | Outpatient (CLI) | payer MEDICARE, SELFPAY ==
[2024-08-30 16:55] LABS: Free T3 2.4 pg/mL (2.18-3.98)
== END | disposition home or self-care (01) ==
LOC: LAB 14:34
PROVIDERS: PCP Internal Medicine; Referring Provider Internal Medicine Endocrinology, Diabetes & Metabolism; Visit Provider Internal Medicine Endocrinology, Diabetes & Metabolism
DX: E05.90 Thyrotoxicosis, unspecified without thyrotoxic crisis or storm (principal)
CPT/HCPCS: 36415; 84439; 84443; 84481

== ENCOUNTER → 2024-11-20 | Outpatient (CLI) | payer MEDICARE, SELFPAY ==
[2024-11-20 12:25] LABS: Hematocrit 42.5 % (37-47); Mean Corp Hgb Conc 32.9 g/dL (32-36); Mean Corpuscular Volume 94.2 fL (81-99); Mean Platelet Vol. 11.4 fl (6.2-12.0); Platelet Count 236 K/mm3 (150-450); RBC Distribution Width CV 13.6 % (11.6-14.6); RBC Distribution Width SD 47.3 fl (35.1-43.9); Red Blood Count 4.51 M/mm3 (4.2-5.4); White Blood Count 4.9 K/mm3 (4.4-11.0)
[2024-11-21 15:53] LABS: AST(SGOT) 29 U/L (<=31); Alanine Aminotransfer ALT/SGPT 20 U/L (<=34); Albumin, Serum 4.6 g/dL (3.4-4.8); Alkaline Phosphatase 100 U/L (35-104); Anion Gap 11 (5-15); BUN 18 mg/dL (4-19); BUN/Creat Ratio 24.3 RATIO (10-20); Calcium,Total 9.4 mg/dL (7.6-11.0); Carbon Dioxide 25.9 mmol/L (21.0-32.0); Chloride 104 mmol/L (98-108); Creatinine, Serum 0.74 mg/dL (0.70-1.20); EST Glomerular Filtration Rate 88 (>60); Globulin 2.3 g/dL (2.2-4.2); Glucose 83 mg/dL (70-99); Potassium 4.2 mmol/L (3.3-5.1); Protein, Total 6.8 g/dL (5.9-8.4); Sodium Level 141 mmol/L (133-145); Total Bilirubin 0.56 mg/dL (0.00-1.30)
[2024-11-21 15:59] LABS: Vitamin D,25 Hydroxy 32.5 ng/mL (30-100)
== END | disposition home or self-care (01) ==
LOC: BIMLAB 11:20
PROVIDERS: PCP Internal Medicine; Referring Provider Internal Medicine; Visit Provider Internal Medicine
DX: M81.0 Age-related osteoporosis without current pathological fracture (principal); I10 Essential (primary) hypertension
CPT/HCPCS: 36415; 80053; 82306; 85027

== ENCOUNTER → 2025-03-02 | Outpatient (CLI) | payer MEDICARE, SELFPAY ==
--- OUTSIDE RECORDS SUMMARY | 2025-03-02 15:13 | XMS RPT_ITS | CCD ---
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 lower respiratory disease (5 sources) Cough; Translations: [Cough] 01-06-2023 Episodic Other nervous system disorders (5 sources) Tremor, unspecified; Translations: [Abnormal involuntary movements] 01-21-2023 Episodic Other non-epithelial cancer of skin (20 sources) Malignant neoplasm of skin; Translations: [Unspecified malignant neoplasm of skin, unspecified] 02-25-2021 Episodic Comment on above: basal/melanoma Other upper respiratory disease (5 sources) Dysphonia; Translations: [Dysphonia] 01-21-2023 Episodic Other upper respiratory infections (5 sources) Acute upper respiratory infection, unspecified; Translations: [Acute upper respiratory infections of unspecified site] Episodic Residual codes; unclassified (20 sources) History of colectomy; Translations: [Acquired absence of other specified parts of digestive tract] 10-28-2021 Episodic Residual codes; unclassified (4 sources) Immunization not carried out because of patient refusal; Translations: [Vaccination not carried out because of patient refusal] 10-12-2022 Episodic Thyroid disorders (20 sources) Hyperthyroidism; Translations: [Thyrotoxicosis, unspecified without thyrotoxic crisis or storm] Onset: 5 01-25-2023 Chronic Urinary tract infections (5 sources) Urinary tract infection, site not specified; Translations: [Urinary tract infection, site not specified] 01-06-2023 Episodic Past or Other Problems Problem Classification Problem Date Documented Date Episodic/Chronic Other screening for suspected conditions (not mental disorders or infectious disease) (20 sources) Electrocardiogram abnormal; Translations: [Abnormal electrocardiogram [ECG] [EKG]] Onset: 08-20-2024 Episodic Results Test Name Value Interpretation Reference Range Facility Office Visit Reporton 2024 Office Visit Report [facility] [place] [address] OFFICE VISIT Date of Service: 12/14/24 MR#: [id number] Acct: [id number] Patient: MANOHAR VILLAFANA Rep #: [id number] : 1955 Provider: MIKE NURSE Age/Sex: 69/F Location: [facility] [place] Status: Signed Intake Vital Signs 11/20/24 10:30 12/14/24 15:07 12/14/24 15:07 Height 5 ft 1 in Weight: 139 lb BMI 26.2 BP 148/70 H 136/62 H 138/62 H Blood Pressure Location Lt brachial Lt brachial Lt brachial Position Sitting Sitting Sitting Respiration 16 Pulse 68 66 67 Pulse Source Monitor Monitor Monitor Temp 97.4 F L Temp Source Temporal Oxygen Delivery Method room air Comment pt Home cuff Manual BP check nurse Intake Visit Reasons: BP CHECK Chief Complaint: BP CHECK Allergies codeine Adverse Reaction (Unknown, Verified 11/20/24 10:27) nausea and vomiting Have you fallen in the past year?: No Nurse's Note: pt presents in the office today for a blood pressure check she brought her home cuff in today and demonstrated proper use. Assessment and Plan Assessment and Plan (1) Essential hypertension: Status: Chronic Clinical Quality Measures Falls Risk Screening/Assistive Devices Have you fallen in the past year?: No 12/14/24 1555 Date Milagros Murray Signature: Date (if applicable) CC: Normal [facility] Comprehensive Metabolic Prof ilon 11-21-2024 Albumin [Mass/Vol] 4.6 g/dL Normal 3.4-4.8 [facility] Comment on above: Order Comment: DR. Maureen CLAYTON LABS NOT DUE UNTIL Performed By: #### L 500.4050, L506.1001, L100.0500 #### [facility] [address] [place], [address] Albumin/Globulin [Mass ratio] 2.0 {ratio} Normal 0.9-2.4 [facility] Comment on above: Order Comment: DR. Maureen CLAYTON LABS NOT DUE UNTIL Performed By: #### L 500.4050, L506.1001, L100.0500 #### [facility] [address] [place], [address] ALK PHOS 100 U/L Normal 35-104 [facility] Comment on above: Order Comment: DR. Maureen YANCEY NOT DUE UNTIL Performed By: #### L 500.4050, L506.1001, L100.0500 #### [facility] [address] [place], [address] ALT [Catalytic activity/Vol] 20 U/L Normal <=34 [facility] Comment on above: Order Comment: DR. Maureen YANCEY NOT DUE UNTIL Performed By: #### L 500.4050, L506.1001, L100.0500 #### [facility] [address] [place], [address] AST [Catalytic activity/Vol] 29 U/L Normal <=31 [facility] Comment on above: Order Comment: DR. Maureen YANCEY NOT DUE UNTIL Performed By: #### L 500.4050, L506.1001, L100.0500 #### [facility] [address] [place], [address] Bilirubin [Mass/Vol] 0.56 mg/dL Normal 0.00-1.30 [facility] Comment on above: Order Comment: DR. Maureen YANCEY NOT DUE UNTIL Performed By: #### L 500.4050, L506.1001, L100.0500 #### [facility] [address] [place], [address] BUN/CRE 24.3 RATIO High 10-20 [facility] Comment on above: Order Comment: DR. Maureen CLAYTON LABS NOT DUE UNTIL Performed By: #### L 500.4050, L506.1001, L100.0500 #### [facility] [address] [place], [address] Calcium [Mass/Vol] 9.4 mg/dL Normal 7.6-11.0 [facility] Comment on above: Order Comment: DR. Maureen CLAYTON LABS NOT DUE UNTIL Performed By: #### L 500.4050, L506.1001, L100.0500 #### [facility] [address] [place], [address] Chloride [Moles/Vol] 104 mmol/L Normal 98-108 [facility] Comment on above: Order Comment: DR. Maureen CLAYTON LABS NOT DUE UNTIL Performed By: #### L 500.4050, L506.1001, L100.0500 #### [facility] [address] [place], [address] CO2 [Moles/Vol] 25.9 mmol/L Normal 21.0-32.0 [facility] Comment on above: Order Comment: DR. Maureen CLAYTON LABS NOT DUE UNTIL Performed By: #### L 500.4050, L506.1001, L100.0500 #### [facility] [address] [place], [address] Creatinine [Mass/Vol] 0.74 mg/dL Normal 0.70-1.20 [facility] Comment on above: Order Comment: DR. Maureen CLAYTON LABS NOT DUE UNTIL Performed By: #### L 500.4050, L506.1001, L100.0500 #### [facility] [address] [place], [address] GAP 11 Normal 5-15 [facility] Comment on above: Order Comment: DR. Maureen CLAYTON LABS NOT DUE UNTIL Performed By: #### L 500.4050, L506.1001, L100.0500 #### [facility] [address] [place], [address] GFR/1.73 sq M.predicted among non-blacks MDRD (S/P/Bld) [Vol rate/Area] 88 mL/min/{1.73_m2} Normal >60 [facility] Comment on above: Order Comment: DR. Maureen CLAYTON LABS NOT DUE UNTIL Result Comment: mL/m in/1.73m2 CKD-EPI Creatinine Equation (2020) Performed By: #### L 500.4050, L506.1001, L100.0500 #### [facility] [address] [place], [address] Globulin (S) [Mass/Vol] 2.3 g/dL Normal 2.2-4.2 [facility] Comment on above: Order Comment: DR. Maureen CLAYTON LABS NOT DUE UNTIL Performed By: #### L 500.4050, L506.1001, L100.0500 #### [facility] [address] [place], [address] Glucose [Mass/Vol] 83 mg/dL Normal 70-99 [facility] Comment on above: Order Comment: DR. Maureen CALYTON LABS NOT DUE UNTIL Performed By: #### L 500.4050, L506.1001, L100.0500 #### [facility] [address] [place], [address] Potassium [Moles/Vol] 4.2 mmol/L Normal 3.3-5.1 [facility] Comment on above: Order Comment: DR. Maureen CLAYTON LABS NOT DUE UNTIL Performed By: #### L 500.4050, L506.1001, L100.0500 #### [facility] [address] [place], [address] Sodium [Moles/Vol] 141 mmol/L Normal 133-145 [facility] Comment on above: Order Comment: DR. Maureen CLAYTON LABS NOT DUE UNTIL Performed By: #### L 500.4050, L506.1001, L100.0500 #### [facility] [address] [place], [address] T PROT 6.8 g/dL Normal 5.9-8.4 [facility] Comment on above: Order Comment: DR. Maureen CLAYTON LABS NOT DUE UNTIL Performed By: #### L 500.4050, L506.1001, L100.0500 #### [facility] [address] [place], [address] Urea nitrogen [Mass/Vol] 18 mg/dL Normal 4-19 [facility] Comment on above: Order Comment: DR. Maureen CLAYTON LABS NOT DUE UNTIL Performed By: #### L 500.4050, L506.1001, L100.0500 #### [facility] [address] [place], [address] Vitamin D,25 Hydroxyon 11-21 Vitamin D 25-OH 32.5 ng/mL Normal 30-100 [facility] Comment on above: Order Comment: DR. Maureen CLAYTON LABS NOT DUE UNTIL Result Comment: Gayle min D Status Deficiency: <20 ng/mL (50nmol/L) Insufficiency: 20-30 ng/mL (50-75 nmol/L) Sufficiency: 30-100 ng/mL (75-250 nmol/L) Toxicity: >100 ng/mL (>250 nmol/L) Performed By: #### L 500.4050, L506.1001, L100.0500 #### [facility] [address] [place], [address] Anion gap in Serum or Plasma Ordered By: Milagros Andrew on 11-20-2024 Anion gap [Moles/Vol] 11 mmol/L 5-15 [facility] BUN/creatinine ratioOrdered By: Milagros Andrew on 11-20-2024 Urea nitrogen/Creatinine [Mass ratio] 24.3 mg/mg High 10-20 [facility] Bilirubin, totalOrdered By: Milagros Andrew on 11-20-2024 Bilirubin [Mass/Vol] 0.56 mg/dL 0.00-1.30 [facility] CBC-Complete Blood Cnt No Di ffon 11-20-2024 Erythrocyte distribution width (RBC) [Ratio] 13.6 % Normal 11.6-14.6 [facility] Comment on above: Order Comment: DR. Maureen CLAYTON LABS NOT DUE UNTIL Performed By: #### L 500.4050, L506.1001, L100.0500 #### [facility] [address] [place], [address] Hematocrit (Bld) [Volume fraction] 42.5 % Normal 37-47 [facility] Comment on above: Order Comment: DR. Maureen CLAYTON LABS NOT DUE UNTIL Performed By: #### L 500.4050, L506.1001, L100.0500 #### [facility] [address] [place], [address] Hemoglobin (Bld) [Mass/Vol] 14.0 g/dL Normal 12.0-15.0 [facility] Comment on above: Order Comment: DR. Maureen CLAYTON LABS NOT DUE UNTIL Performed By: #### L 500.4050, L506.1001, L100.0500 #### [facility] [address] [place], [address] MCH (RBC) [Entitic mass] 31.0 pg Normal 27.0-32.0 [facility] Comment on above: Order Comment: DR. Maureen CLAYTON LABS NOT DUE UNTIL Performed By: #### L 500.4050, L506.1001, L100.0500 #### [facility] [address] [place], [address] MCHC (RBC) [Mass/Vol] 32.9 g/dL Normal 32-36 [facility] Comment on above: Order Comment: DR. Maureen YANCEY NOT DUE UNTIL Performed By: #### L 500.4050, L506.1001, L100.0500 #### [facility] [address] [place], [address] MCV (RBC) [Entitic vol] 94.2 fL Normal 81-99 [facility] Comment on above: Order Comment: DR. Maureen CLAYTON LABS NOT DUE UNTIL Performed By: #### L 500.4050, L506.1001, L100.0500 #### [facility] [address] [place], [address] Platelet mean volume (Bld) [Entitic vol] 11.4 fL Normal 6.2-12.0 [facility] Comment on above: Order Comment: DR. Maureen YANCEY NOT DUE UNTIL Performed By: #### L 500.4050, L506.1001, L100.0500 #### [facility] [address] [place], [address] Platelets (Bld) [#/Vol] 236 10*3/uL Normal 150-450 [facility] Comment on above: Order Comment: DR. Maureen YANCEY NOT DUE UNTIL Performed By: #### L 500.4050, L506.1001, L100.0500 #### [facility] [address] [place], [address] RBC (Bld) [#/Vol] 4.51 10*6/uL Normal 4.2-5.4 [facility] Comment on above: Order Comment: DR. Maureen CLAYTON LABS NOT DUE UNTIL Performed By: #### L 500.4050, L506.1001, L100.0500 #### [facility] [address] [place], [address] RDW SD 47.3 fl High 35.1-43.9 [facility] Comment on above: Order Comment: DR. Maureen YANCEY NOT DUE UNTIL Performed By: #### L 500.4050, L506.1001, L100.0500 #### [facility] [address] [place], [address] WBC (Bld) [#/Vol] 4.9 10*3/uL Normal 4.4-11.0 [facility] Comment on above: Order Comment: DR. Maureen CLAYTON LABS NOT DUE UNTIL Performed By: #### L 500.4050, L506.1001, L100.0500 #### [facility] [address] [place], [address] Carbon dioxide, total [Moles /volume] in Central venous bloodOrdered By: Milagros Andrew on 11-20-2024 CO2 [Moles/Vol] 25.9 mmol/L 21.0-32.0 [facility] Chloride assayOrdered By: Campbell Andrew on 11-20-2024 Chloride [Moles/Vol] 104 mmol/L 98-108 [facility] Erythrocyte distribution wid th ratioOrdered By: Milagros Andrew on 11-20-2024 Erythrocyte distribution width (RBC) [Ratio] 13.6 % 11.6-14.6 [facility] Erythrocyte distribution wid th standard deviationOrdered By: Milagros Andrew on 11-20-2024 Erythrocyte distribution width (RBC) [Ratio] 47.3 fl High 35.1-43.9 [facility] Glomerular filtration rate ( GFR) estimation/1.73 sq m using serum, plasma, or whole bOrdered By: Milagros Andrew on 11-20-2024 GFR/1.73 sq M.predicted among non-blacks MDRD (S/P/Bld) [Vol rate/Area] 88 mL/min/{1.73_m2} >60 [facility] Comment on above: mL/min/1.73m2 CKD-EP I Creatinine Equation (2020) Hematocrit Auto (Bld) [Volum e fraction]Ordered By: Milagros Andrew on 11-20-2024 Hematocrit (Bld) [Volume fraction] 42.5 % 37-47 [facility] Hemoglobin measurementOrdere d By: Milagros Andrew on 11-20-2024 Hemoglobin (Bld) [Mass/Vol] 14.0 g/dL 12.0-15.0 [facility] Laboratory - Chemistry and C hemistry - challengeOrdered By: Milagros Andrew on 11-20-2024 AST [Catalytic activity/Vol] 29 U/L <32 [facility] MCV (mean corpuscular volume ) determinationOrdered By: Milagros Andrew on 11-20-2024 MCV (RBC) [Entitic vol] 94.2 fL 81-99 [facility] Mean corpuscular hemoglobin (MCH) determinationOrdered By: Milagros Andrew on 11-20-2024 MCH (RBC) [Entitic mass] 31.0 pg 27.0-32.0 [facility] Mean corpuscular hemoglobin concentration (MCHC) determinationOrdered By: Milagros Andrew on 11-20-2024 MCHC (RBC) [Mass/Vol] 32.9 g/dL 32-36 [facility] Mean platelet volume determi nationOrdered By: Milagros Anderw on 11-20-2024 Platelet mean volume (Bld) [Entitic vol] 11.4 fL 6.2-12.0 [facility] Platelet countOrdered By: Campbell Andrew on 11-20-2024 Platelets (Bld) [#/Vol] 236 10*3/uL 150-450 [facility] Potassium measurement (mass/ volume)Ordered By: Milagros Andrew on 11-20-2024 Potassium (Unsp spec) [Mass/Vol] 4.2 mmol/L 3.3-5.1 [facility] RBC Auto (Bld) [#/Vol]Ordere d By: Milagros Andrew on 11-20-2024 RBC (Bld) [#/Vol] 4.51 10*6/uL 4.2-5.4 [facility] Serum creatinine measurement (mass/volume)Ordered By: Milagros Andrew on 11-20-2024 Creatinine [Mass/Vol] 0.74 mg/dL 0.70-1.20 [facility] Serum globulin measurementOr dered By: Milagros Andrew on 11-20-2024 Globulin (S) [Mass/Vol] 2.3 g/dL 2.2-4.2 [facility] Serum glucose measurement (m ass/volume)Ordered By: Milagros Andrew on 11-20-2024 Glucose [Mass/Vol] 83 mg/dL 70-99 [facility] Serum or plasma alanine mcleod otransferase (ALT) measurementOrdered By: Milagros Andrew on 11-20-2024 ALT [Catalytic activity/Vol] 20 U/L <35 [facility] Serum or plasma albumin ruben urement (mass/volume)Ordered By: Milagros Andrew on 11-20-2024 Albumin [Mass/Vol] 4.6 g/dL 3.4-4.8 [facility] Serum or plasma albumin/glob ulin mass ratioOrdered By: Milagros Andrew on 11-20-2024 Albumin/Globulin [Mass ratio] 2.0 {ratio} 0.9-2.4 [facility] Serum or plasma alkaline bruce sphatase measurementOrdered By: Milagros Andrew on 11-20-2024 ALP [Catalytic activity/Vol] 100 U/L 35-104 [facility] Serum or plasma calcium ruben urement (mass/volume)Ordered By: Milagros Andrew on 11-20-2024 Calcium [Mass/Vol] 9.4 mg/dL 7.6-11.0 [facility] Serum or plasma urea nitroge n measurement (mass/volume)Ordered By: Milagros Andrew on 11-20-2024 Urea nitrogen [Mass/Vol] 18 mg/dL 4-19 [facility] Sodium levelOrdered By: Hermann Andrew on 11-20-2024 Sodium [Moles/Vol] 141 mmol/L 133-145 [facility] Total proteinOrdered By: Arian Andrew on 11-20-2024 Protein [Mass/Vol] 6.8 g/dL 5.9-8.4 [facility] White blood cell (WBC) count Ordered By: Milagros Andrew on 11-20-2024 WBC (Bld) [#/Vol] 4.9 10*3/uL 4.4-11.0 [facility] Internal Medicine Office Vis chriss 11-16-2024 Internal Medicine Office Visit [facility] [address] [place] [address] [place] [address] OFFICE VISIT Date of Service: 11/20/24 MR#: [id number] Acct: [id number] Name: MANOHAR VILLAFANA Rep #: [id number] : 1955 Provider: Dr. Milagros peck MD Age/Sex: 69/F Location: [facility] [place] Status: Signed Intake Vital Signs 09/07/24 10:27 11/20/24 10:30 11/20/24 16:20 Height 5 ft 1 in 5 ft 1 in Weight: 139 lb BMI 26.2 BP 148/70 H 162/82 H Blood Pressure Location Lt brachial Position Sitting Respiration 16 Pulse 68 Pulse Source Monitor Temp 97.4 F L Temp Source Temporal Oxygen Delivery Method room air Intake Visit Reasons: PHYSICAL Chief Complaint: PHYSICAL Is patient in pain?: No Allergies codeine Adverse Reaction (Unknown, Verified 11/20/24 10:27) nausea and vomiting Medications ???Medication ???Instructions ???Recorded ???Confirmed ???Type calcium carbonate (Calcium 600) 600 mg PO DAILY supplement 1 11/20/24 History inhalational spacing device #2 ea 07/02/22 11/20/24 Rx (BreatheRite MDI Spacer) cholecalciferol (vitamin D3) 50 4,000 unit PO DAILY 10/13/2311/20 History mcg (2,000 unit) capsule zoledronic acid 5 mg/100 mL in 1 ea .Route ONCE #100 mL 06/09/24 11/20/24 Rx mannitol 5 %-water intravenous piggybck amlodipine 5 mg tablet 5 mg PO DAILY blood pressure #90 0 06/19/24 11/20/24 Rx tabs estradiol 0.01% (0.1 mg/gram) 1 g vaginal QWEEK #42.5 grams 08/0611/20/24 Rx vaginal cream (Estrace) methimazole 5 mg tablet 2.5 mg (1/2 x 5 mg) PO DAILY #45 0 09/07/24 11/20/24 Rx tabs escitalopram oxalate 10 mg tablet 10 mg PO DAILY anxiety #90 tabs 0 10/04/24 11/20/24 Rx beclomethasone dipropionate 40 1 inh inhalation BID #10.6 grams 0 11/06/24 11/20/24 Rx mcg/actuation HFA breath activated aerosol (Qvar RediHaler) Have you fallen in the past year?: Yes (2 ACCIDENTAL FALLS; NO INJURY) [facility] Medical History Hyperthyroidism Occult blood positive stool GI bleed C. difficile colitis Abnormal EKG Essential hypertension Anxiety and depression Diverticulitis Skin cancer Asthma Surgical History Status post surgical removal of malignant neoplasm of skin History of hysterectomy History of colon resection Family History Father Asthma Myocardial infarction, Onset Age: 50 Heart disease Hypertension Hyperlipemia Mother Breast cancer Cancer mouth Social History (Updated 11/20/24 @ 10:[address] Milagros Andrew MD) household members: none current occupational status: retired current occupation: professor at [employer], retired in 2018, taught social work Smoking Status: Never smoker Electronic Cigarette Use: not used alcohol intake: current alcohol intake frequency: a few times a month Alcohol type: wine substance use type: does not use caffeine: Yes Type: coffee what type of physical activity do you participate in: weight training and other details: cardio machines frequency: 3-4 times per week seatbelt use: always do you feel safe at home: Yes Questionnaire PQ-9 BMS Over the last 2 weeks, how often have you been bothered by any of the following problems? 1. Little interest or pleasure in doing things: not at all 2. Feeling down, depressed, or hopeless: not at all 3. Trouble falling or staying asleep, or sleeping too much: not at all 4. Feeling tired or having little energy: not at all 5. Poor appetite or overeating: not at all 6. Feeling bad about yourself - or that you are a failure or have let yourself and your family down: not at all 7. Trouble concentrating on things, such as reading the newspaper or watching television: not at all 8. Moving or speaking so slowly that other people could have noticed? - Or the opposite - being so fidgety or restless that you have been moving around a lot more than usual: not at all 9. Thoughts that you would be better off or of hurting yourself in some way: not at all Total score: 0 If you checked off any problems, how difficult have these problems made it for you to do your work, take care of things at home, or get along with other people?: not difficult at all Source: Developed by Drs. Tito Steve, Ally Burden, Leonardo Crisostomo and colleagues, with an educational edward from [employer]. HPI HPI Chief Complaint: PHYSICAL Details: MANOHAR VILLAFANA, is a 69 F who presents to the office today for a follow up. She is due for some routine blood work and is up to date on her screening. She previously declined her shingrix/pneumonia vaccines. She doesn't smoke and does not need refills. She reports she is eating healthy and continues t (more content not included)... Normal [facility] Endocrinology Visit Reporton 09-07-2024 Endocrinology Visit Report [facility] [address] [place] [address] OFFICE VISIT Date of Service: 09/07/24 MR#: [id number] Acct: [id number] Name: MANOHAR VILLAFANA Rep #: [id number] : 1955 Provider: Olman Sanches Age/Sex: 69/F Location: [facility] [place] Status: Signed Intake Vital Signs 03/09/24 14:32 06/30/24 12:28 09/07/24 10:27 Height 5 ft 1 in 5 ft 1 in 5 ft 1 in Weight: 137 lb 2 oz BMI 25.9 BP 135/74 H Blood Pressure Location Lt brachial Position Sitting Pulse 61 Pulse Source Monitor Pulse Oximetry (%) 95 Oxygen Delivery Method room air Intake Visit Reasons: 6 M FU Chief Complaint: Thyroid/bone Is patient in pain?: No Allergies codeine Adverse Reaction (Unknown, Verified 09/07/24 10:29) nausea and vomiting Medications ???Medication ???Instructions ???Recorded ???Confirmed ???Type calcium carbonate (Calcium 600) 600 mg PO DAILY supplement 1 09/07/24 History inhalational spacing device #2 ea 07/02/22 09/07/24 Rx (BreatheRite MDI Spacer) cholecalciferol (vitamin D3) 50 4,000 unit PO DAILY 10/13/2309/07 History mcg (2,000 unit) capsule escitalopram oxalate 10 mg tablet 10 mg PO DAILY anxiety #90 tabs 1 09/07/24 Rx zoledronic acid 5 mg/100 mL in 1 ea .Route ONCE #100 mL 06/09/24 09/07/24 Rx mannitol 5 %-water intravenous piggybck amlodipine 5 mg tablet 5 mg PO DAILY blood pressure #90 0 06/19/24 09/07/24 Rx tabs beclomethasone dipropionate 40 1 inh inhalation BID #10.6 grams 0 08/30/24 09/07/24 Rx mcg/actuation HFA breath activated aerosol (Qvar RediHaler) estradiol 0.01% (0.1 mg/gram) 1 g vaginal QWEEK #42.5 grams 08/0609/07/24 Rx vaginal cream (Estrace) methimazole 5 mg tablet 2.5 mg (1/2 x 5 mg) PO DAILY #45 0 09/07/24 09/07/24 Rx tabs Have you fallen in the past year?: No PFSH Medical History Hyperthyroidism Occult blood positive stool GI bleed C. difficile colitis Abnormal EKG Essential hypertension Anxiety and depression Diverticulitis Skin cancer Asthma Surgical History Status post surgical removal of malignant neoplasm of skin History of hysterectomy History of colon resection Family History Father Asthma Myocardial infarction, Onset Age: 50 Heart disease Hypertension Hyperlipemia Mother Breast cancer Cancer mouth Social History household members: none current occupational status: retired current occupation: professor at [employer], retired in 2018, taught social work Smoking Status: Never smoker Electronic Cigarette Use: not used alcohol intake: current alcohol intake frequency: a few times a month Alcohol type: wine substance use type: does not use caffeine: Yes Type: coffee what type of physical activity do you participate in: weight training and other details: cardio machines frequency: 3-4 times per week seatbelt use: always do you feel safe at home: Yes HPI HPI Chief Complaint: Thyroid/bone Details: MANOHAR VILLAFANA, is a 69 F who presents to the office today for follow up. She presented in December, with symptoms of Grave's disease. She was started on methimazole in January. She is doing well. She has osteoporosis by DEXA. Lumbar Spine (L1-L4): g/cm2 (0.785) / T-score (-2.4) / Z-score (-0.4) Findings are suggestive of osteopenia with a high fracture risk. Left Femur Total: g/cm2 (0.662) / T-score (-2.3) / Z-score (-0.9) Left Femoral Neck: g/cm2 (0.578) / T-score (-2.4) / Z-score (-0.8) Right Femur Total: g/cm2 (0.674) / T-score (-2.2) / Z-score (-0.8) Right Femoral Neck: g/cm2 (0.537) / T-score (-2.8) / Z-score (-1.1) She received her second infusion of Reclast earlier this year. She tolerated it well.. ROS Const Constitutional: No fatigue, weight change or change in appetite Eyes Eyes: No change in vision ENT ENT: No dizziness/vertigo or difficulty swallowing Cardio Cardiology: No chest pain at rest, chest pain with exertion, shortness of breath or palpitations Musc Musculoskeletal: No abnormal gait, joint pain, numbness or tingling Neuro Neurology: No abnormal gait, memory loss, numbness or tingling Psych Psychiatric: No change in appetite, No memory loss and No Thoughts of harming yourself/Others Resp Respiratory: No cough, chest congestion or shortness of breath Gastro GI: No abdominal pain, constipation, diarrhea or difficulty swallowing Genitourinary-Female: No burning urination Skin Skin: No itchy eyes or wounds Endo Endocrine: No fatigue or weight change Aller/Imm Allergy (more content not included)... Normal [facility] Free T3on 08-30-2024 Free T3 [Mass/Vol] 2.4 pg/mL Normal 2.18-3.98 [facility] Comment on above: Performed By: #### L 501.9520, L501.23282, L506.0400 #### [facility] Laboratory [address] [place], [place], [address] Free D5Idavwks By: Chencho Dupree on 08-30-2024 Free T3 [Mass/Vol] 2.4 pg/mL 2.18-3.98 [facility] Free Triiodothyronine (T3) pg/dL 2.4 pg/mL 2.18-3.98 [facility] T4 Free Directon 08-30-2024 T4 FREE DIRECT 1.20 ng/dL Normal 0.76-1.46 [facility] Comment on above: Performed By: #### L 501.9520, L501.35014, L506.0400 ####[facility] [address] [place], [place], [id number] T4 freeOrdered By: Chencho Dupree on 08-30-2024 Free T4 [Mass/Vol] 1.20 ng/dL 0.76-1.46 [facility] TSH DL <= 0.005 mIU/L QnOrde red By: Chencho Dupree on 08-30-2024 Thyroid Stimulating Hormone (TSH) 1.060 uIU/mL 0.300-4.200 [facility] TSH Qn 1.060 uIU/mL 0.300-4.200 [facility] Thyroid Stim Hormone (TSH)on 08-30-2024 TSH 1.060 uIU/mL Normal 0.300-4.200 [facility] Comment on above: Performed By: #### L [id number], [id number], L506.0400 #### [facility] [address] [place], [place], [address] Breast Limited Unilateralon 08-11-2024 Breast Limited Unilateral [facility] Imaging Services [address] [place], [place] [id number] Breast Limited Unilateral MR#: [id number] Acct: [id number] Name: MANOHAR VILLAFANA Rep #: [id number] : 1955 F 69 From: Samia Parks MD PCP: Dr. Milagros Andrew MD Status: REG CLI Study: Breast Limited Unilateral Date of Exam: Exam# [id number] Ordering Dr: Milagros Andrew MD PROCEDURE: BREAST LIMITED UNILATERAL REASON FOR EXAM: 69-year-old female presents for follow-up of the right breast findings seen on the mammogram of 08/09/2024. Family history of breast cancer in her mother in her 50s and maternal aunt in her 60s TECHNIQUE: Targeted right breast ultrasound. COMPARISON: Mammogram 08/09/2024 FINDINGS: RIGHT: Follow-up examination performed further right breast mass visualized on the examination of 08/09/2024. Ultrasound of the right breast demonstrates a 0.4 x 0.3 x 0.2 cm cyst in the right retroareolar region, which is inappropriate correlate for the mammographic finding. Otherwise, there are some mildly dilated ducts in the retroareolar region without evidence of intraductal mass. There are no suspicious sonographic findings. US/Breast Limited Unilateral IMPRESSION: Cyst in the retroareolar right breast is benign. There are no suspicious sonographic findings. BI-RADS 2: BENIGN. RECOMMEND ANNUAL MAMMOGRAPHIC SCREENING. Follow-up code: Routine Follow-up Reading Location: [facility] CC: Dr. Milagros Andrew MD Consular Officer: Signed Normal [facility] Breast imaging reportOrdered By: Samia Parks on 08-09-2024 Study report [facility] Imaging Services [address] [place] [id number] SCRN MAMM (CAD)W/ROHAN BILAT MR#: [id number] Acct: [id number] Name: MANOHAR VILLAFANA LU Rep #: [id number] : 1955 F 69 From: Sophy Parks MD PCP: Dr. Milagros Andrew MD Status: REG CLI Study:SCRN MAMM (CAD)W/ROHAN BILAT Date of Exa m: 08/09/24 Exam# [id number] Ordering Dr: Tete Martinez MD PROCEDURE: SCRN MAMM (CAD)W/ROHAN BILAT REASON FOR EXAM: F, Age 69 y/o, presents for annual screening mammogram. Family history of breast cancer in her mother in her 50s and maternal aunt in her 60s. TECHNIQUE: Bilateral screening digital breast tomosynthesis with 2D and 3D images. Computeraided detection. COMPARISON: 07/22/2023, 07/20/2022 FINDINGS: The breasts are extremely dense which lowers the sensitivity of mammography. Themammogram demonstrates that the patient has dense breasts. Supplemental screening with whole breast ultrasound or MRI may beconsidered for further evaluation. There is a mass in the retroareolar right breast, it has increased in size. No suspicious masses, areas of developing architectural distortion, or suspicious calcifications left breast. BI/SCRN MAMM (CAD)W/ROHAN BILAT IMPRESSION: Mass in the retroareolar right breast requires further evaluation. Recommend diagnostic ultrasound of the right breast. BI-RADS 0: INCOMPLETE - NEED ADDITIONAL IMAGING EVALUATION. Follow-up code: Additional Views obtained/call backs The patient will be notified of the results by letter. Reading Location: [facility] CC: Dr. Milagros Andrew MD; Dr. Kellie Martinez MD ~ Consular Officer: Signed [facility] SCRN MAMM (CAD)W/ROHAN BILATo n 08-09-2024 SCRN MAMM (CAD)W/ROHAN BILAT [facility] Imaging Services [address] [place] [address] SCRN MAMM (CAD)W/ROHAN BILAT MR#: [id number] Acct: [id number] Name: MANOHAR VILLAFANA LU Rep #: [id number] : 1955 F 69 From: Samia Parks MD PCP: Dr. Milagros Andrew MD Status: REG CLI Study: SCRN MAMM (CAD)W/ROHAN BILAT Date of Exam: 10/29 Exam# [id number] Ordering Dr: Kellie Martinez MD PROCEDURE: SCRN MAMM (CAD)W/ROHAN BILAT REASON FOR EXAM: F, Age 69 y/o, presents for annual screening mammogram. Family history of breast cancer in her mother in her 50s and maternal aunt in her 60s. TECHNIQUE: Bilateral screening digital breast tomosynthesis with 2D and 3D images. Computer aided detection. COMPARISON: 07/22/2023, 07/20/2022 FINDINGS: The breasts are extremely dense which lowers the sensitivity of mammography. The mammogram demonstrates that the patient has dense breasts. Supplemental screening with whole breast ultrasound or MRI may be considered for further evaluation. There is a mass in the retroareolar right breast, it has increased in size. No suspicious masses, areas of developing architectural distortion, or suspicious calcifications left breast. BI/SCRN MAMM (CAD)W/ROHAN BILAT IMPRESSION: Mass in the retroareolar right breast requires further evaluation. Recommend diagnostic ultrasound of the right breast. BI-RADS 0: INCOMPLETE - NEED ADDITIONAL IMAGING EVALUATION. Follow-up code: Additional Views obtained/call backs The patient will be notified of the results by letter. Reading Location: [id number] CC: Dr. Milagros Andrew MD; Dr. Kellie Martinez MD Consular Officer: Signed Normal [facility] Endocrinology Visit Reporton 03-09-2024 Endocrinology Visit Report [facility] [address] [place] [address] [place] [address] OFFICE VISIT Date of Service: 03/09/24 MR#: [id number] Acct: [id number] Name: MANOHAR VILLAFANA LU Rep #: [id number] : 1955 Provider: Olman Sanches Age/Sex: 69/F Location: [facility] Status: Signed Intake Vital Signs 09/02/23 11:21 12/02/23 10:22 03/09/24 14:32 Height 5 ft 1 in 5 ft 1 in 5 ft 1 in Weight: 136 lb BMI 25.7 BP 135/71 H Blood Pressure Location Lt brachial Position Sitting Pulse 64 Pulse Source Monitor Pulse Oximetry (%) 94 Oxygen Delivery Method room air Intake Visit Reasons: 6 M FU Chief Complaint: Thyroid/bone Is patient in pain?: No Allergies codeine Adverse Reaction (Unknown, Verified 12/02/23 10:14) nausea and vomiting Medications ???Medication ???Instructions ???Recorded ???Confirmed ???Type calcium carbonate (Calcium 600) 600 mg PO DAILY supplement 02/25/21 03/09/24 History inhalational spacing device #2 ea 07/02/22 03/09/24 Rx (BreatheRite MDI Spacer) cholecalciferol (vitamin D3) 50 4,000 unit PO DAILY 10/13/23 03/09/24 History mcg (2,000 unit) capsule estradiol 0.01% (0.1 mg/gram) 1 g vaginal QWEEK #42.5 grams 12/02/23 03/09/24 Rx vaginal cream (Estrace) beclomethasone dipropionate 40 1 inh inhalation BID #10.6 grams 12/08/23 03/09/24 Rx mcg/actuation HFA breath activated aerosol (Qvar RediHaler) amlodipine 5 mg tablet 5 mg PO DAILY blood pressure #90 12/20/23 03/09/24 Rx tabs escitalopram oxalate 10 mg tablet 10 mg PO DAILY anxiety #90 tabs 04/03/24 Rx methimazole 5 mg tablet 2.5 mg (1/2 x 5 mg) PO DAILY #45 04/13/24 Rx tabs zoledronic acid 5 mg/100 mL in 1 ea .Route ONCE #100 mL 04/13/24 04/13/24 Rx mannitol 5 %-water intravenous piggybck Have you fallen in the past year?: No PFSH Medical History Hyperthyroidism Occult blood positive stool GI bleed C. difficile colitis Abnormal EKG Essential hypertension Anxiety and depression Diverticulitis Skin cancer Asthma Surgical History Status post surgical removal of malignant neoplasm of skin History of hysterectomy History of colon resection Family History Father Asthma Myocardial infarction, Onset Age: 50 Heart disease Hypertension Hyperlipemia Mother Breast cancer Cancer mouth Social History household members: none current occupational status: retired current occupation: professor at [employer], retired in 2018, taught social work Smoking Status: Never smoker Electronic Cigarette Use: not used alcohol intake: current alcohol intake frequency: a few times a month Alcohol type: wine substance use type: does not use caffeine: Yes Type: coffee what type of physical activity do you participate in: weight training and other details: cardio machines frequency: 3-4 times per week seatbelt use: always do you feel safe at home: Yes HPI HPI Chief Complaint: Thyroid/bone Details: MANOHAR VILLAFANA, is a 69 F who presents to the office today for follow up. She presented in December, with symptoms of Grave's disease. She was started on methimazole in January. She is doing well. She has osteoporosis by DEXA. Lumbar Spine (L1-L4): g/cm2 (0.785) / T-score (-2.4) / Z-score (-0.4) Findings are suggestive of osteopenia with a high fracture risk. Left Femur Total: g/cm2 (0.662) / T-score (-2.3) / Z-score (-0.9) Left Femoral Neck: g/cm2 (0.578) / T-score (-2.4) / Z-score (-0.8) Right Femur Total: g/cm2 (0.674) / T-score (-2.2) / Z-score (-0.8) Right Femoral Neck: g/cm2 (0.537) / T-score (-2.8) / Z-score (-1.1) She received her first infusion of Reclast in June,. ROS Const Constitutional: No fatigue or weight change ENT ENT: No dizziness/vertigo Cardio Cardiology: No chest pain at rest, chest pain with exertion, shortness of breath or palpitations Skin Skin: No wounds Endo Endocrine: No fatigue or weight change Exam Const General: cooperative, healthy appearing, comfortable, no acute distress, well developed and not cushingoid Nutritional Appearance: well nourished Orientation: alert, awake and oriented x3 HENMT Head: normal to inspection Ears: hearing grossly normal bilaterally Nose: external nose normal Mouth: oral mucosae normal Eyes General: appearance normal, both eyes and all related structures Alignment and Position: alignment normal Periorbital: periorbital findings normal Eyelids: eyelids normal Conjunctivae: conjunctivae normal Neck Neck: normal visual inspection Neck mass: No Thyroid: diffu (more content not included)... Normal [facility] Free T3on 03-02-2024 Free T3 [Mass/Vol] 2.5 pg/mL Normal 2.18-3.98 [facility] Comment on above: Performed By: #### L 506.0400, L501.9520, L501.00131 ####[facility] [address] [place], [address] T4 Free Directon 03-02-2024 T4 FREE DIRECT 1.16 ng/dL Normal 0.76-1.46 [facility] Comment on above: Performed By: #### L 506.0400, L501.9520, L501.35233 ####[facility] [address] [place], [address] Thyroid Stim Hormone (TSH)on 03-02-2024 TSH 1.480 uIU/mL Normal 0.358-3.740 [facility] Comment on above: Performed By: #### L 506.0400, L501.9520, L501.28273 ####[facility] [address] [place], [address] Basophil percentageOrdered B y: Chencho Dupree on 07-12-2023 Chloride [Moles/Vol] 108 mmol/L 98-107 [facility] Glucose [Mass/Vol] 138 mg/dL 74-106 [facility] Comment on above: Fasting Glucose resu lt greater than or equal to 126 mg/dL suggests DIABETES MELLITUS per A.D.A. criteria. Potassium [Moles/Vol] 3.6 mmol/L 3.5-5.1 [facility] Sodium [Moles/Vol] 144 mmol/L 136-145 [facility] Laboratory - Chemistry and C hemistry - challengeOrdered By: Chencho Dupree on 07-12-2023 CO2 [Moles/Vol] 29.0 mmol/L 21.0-32.0 [facility] Urea nitrogen/Creatinine [Mass ratio] 23.4 mg/mg 10-20 [facility] No Panel InformationOrdered By: Chencho Dupree on 07-12-2023 Estimated GFR (MDRD) Amer 102 mL/min >60 [facility] Comment on above: GFR Calc Estimated GFR (MDRD) Non-Af Amer 85 mL/min >60 [facility] Comment on above: Non- GFR Calc Free Triiodothyronine (T3) pg/dL 2.4 pg/mL 2.18-3.98 [facility] Vitamin D 25-Hydroxy 44.9 ng/mL [facility] Comment on above: Vitamin D 25(OH) Sta tus Range Deficiency <20 ng/mL (50nmol/L) Insufficiency 20 - 30 ng/mL (50 - 75 nmol/L) Sufficiency 30 - 100 ng/mL (75 - 250 nmol/L) Toxicity >100 ng/mL (>250 nmol/L) Serum or plasma calcium ruben urement (mass/volume)Ordered By: Chencho Dupree on 07-12-2023 Calcium [Mass/Vol] 8.7 mg/dL 8.5-10.1 [facility] Serum or plasma creatinine m easurement (mass/volume)Ordered By: Chencho Dupree on 07-12-2023 Creatinine [Mass/Vol] 0.72 mg/dL 0.55-1.02 [facility] Comment on above: The validity of the calculated GFR & GFRAA in patients over 70 years has not been determined. Clinical correlation is essential. Serum or plasma thyroid stim ulating hormone (TSH) measurement (units/volume)Ordered By: Chencho Dupree on 07-12-2023 TSH Qn 0.82 uIU/mL 0.358-3.74 [facility] Serum or plasma urea nitroge n measurement (mass/volume)Ordered By: Chencho Dupree on 07-12-2023 Urea nitrogen [Mass/Vol] 17 mg/dL 7-18 [facility] Thin prep Papanicolaou smear with manual screeningOrdered By: Chencho Dupree on 07-12-2023 Thin prep Papanicolaou smear with manual screening 7 5-15 [facility] Thin prep Papanicolaou smear with manual screening 1.03 ng/dL 0.76-1.46 [facility] Laboratory - Chemistry and C hemistry - challengeOrdered By: Chencho Dupree on 05-22-2023 Free T4 [Mass/Vol] 0.87 ng/dL 0.76-1.46 [facility] No Panel InformationOrdered By: Chencho Dupree on 05-22-2023 Free Triiodothyronine (T3) pg/dL 2.6 pg/mL 2.18-3.98 [facility] Thyroid Stimulating Hormone (TSH) 0.54 uIU/mL 0.358-3.74 [facility] Basophil percentageOrdered B y: Chencho Dupree on 05-03-2023 Bilirubin [Mass/Vol] 0.70 mg/dL 0.20-1.00 [facility] Comment on above: For patients on eltr ombopag therapy, use of Dimension [place] TBIL is not recommended. Chloride [Moles/Vol] 105 mmol/L 98-107 [facility] Glucose [Mass/Vol] 138 mg/dL 74-106 [facility] Comment on above: Fasting Glucose resu lt greater than or equal to 126 mg/dL suggests DIABETES MELLITUS per A.D.A. criteria. Potassium [Moles/Vol] 3.6 mmol/L 3.5-5.1 [facility] Protein [Mass/Vol] 7.2 g/dL 6.4-8.2 [facility] Sodium [Moles/Vol] 141 mmol/L 136-145 [facility] Laboratory - Chemistry and C hemistry - challengeOrdered By: Chencho Dupree on 05-03-2023 ALP [Catalytic activity/Vol] 160 U/L 45-117 [facility] ALT [Catalytic activity/Vol] 28 U/L 13-56 [facility] CO2 [Moles/Vol] 31.0 mmol/L 21.0-32.0 [facility] Free T4 [Mass/Vol] 0.46 ng/dL 0.76-1.46 [facility] Globulin (S) [Mass/Vol] 3.3 g/dL 2.2-4.2 [facility] Urea nitrogen/Creatinine [Mass ratio] 18.5 mg/mg 10-20 [facility] No Panel InformationOrdered By: Chencho Dupree on 05-03-2023 Estimated GFR (MDRD) Amer 84 mL/min >60 [facility] Comment on above: GFR Calc Estimated GFR (MDRD) Non-Af Amer 69 mL/min >60 [facility] Comment on above: Non- GFR Calc Free Triiodothyronine (T3) pg/dL 2.0 pg/mL 2.18-3.98 [facility] Thyroid Stimulating Hormone (TSH) 9.78 uIU/mL 0.358-3.74 [facility] Vitamin D 25-Hydroxy 48.7 ng/mL [facility] Comment on above: Vitamin D 25(OH) Sta tus Range Deficiency <20 ng/mL (50nmol/L) Insufficiency 20 - 30 ng/mL (50 - 75 nmol/L) Sufficiency 30 - 100 ng/mL (75 - 250 nmol/L) Toxicity >100 ng/mL (>250 nmol/L) Serum or plasma albumin ruben urement (mass/volume)Ordered By: Chencho Dupree on 05-03-2023 Albumin [Mass/Vol] 3.9 g/dL 3.2-5.0 [facility] Serum or plasma albumin/glob ulin mass ratioOrdered By: Chencho Dupree on 05-03-2023 Albumin/Globulin [Mass ratio] 1.2 {ratio} 0.9-2.4 [facility] Serum or plasma calcium ruben urement (mass/volume)Ordered By: Chencho Dupree on 05-03-2023 Calcium [Mass/Vol] 8.8 mg/dL 8.5-10.1 [facility] Serum or plasma creatinine m easurement (mass/volume)Ordered By: Chencho Dupree on 05-03-2023 Creatinine [Mass/Vol] 0.86 mg/dL 0.55-1.02 [facility] Comment on above: The validity of the calculated GFR & GFRAA in patients over 70 years has not been determined. Clinical correlation is essential. Serum or plasma urea nitroge n measurement (mass/volume)Ordered By: Chencho Dupree on 05-03-2023 Urea nitrogen [Mass/Vol] 16 mg/dL 7-18 [facility] Thin prep Papanicolaou smear with manual screeningOrdered By: Chencho Dupree on 05-03-2023 Thin prep Papanicolaou smear with manual screening 24 U/L 15-37 [facility] Thin prep Papanicolaou smear with manual screening 5 5-15 [facility] Laboratory - Chemistry and C hemistry - challengeOrdered By: Chencho Dupree on 04-08-2023 Free T4 [Mass/Vol] 0.58 ng/dL 0.76-1.46 [facility] No Panel InformationOrdered By: Chencho Dupree on 04-08-2023 Free Triiodothyronine (T3) pg/dL 2.0 pg/mL 2.18-3.98 [facility] Thyroid Stimulating Hormone (TSH) 0.37 uIU/mL 0.358-3.74 [facility] Laboratory - Chemistry and C hemistry - challengeOrdered By: Chencho Dupree on 03-09-2023 Free T4 [Mass/Vol] 1.06 ng/dL 0.76-1.46 [facility] No Panel InformationOrdered By: hCencho Dupree on 03-09-2023 Free Triiodothyronine (T3) pg/dL 2.9 pg/mL 2.18-3.98 [facility] Thyroid Stimulating Hormone (TSH) < 0.01 uIU/mL 0.358-3.74 [facility] Laboratory - Chemistry and C hemistry - challengeOrdered By: Chencho Dupree on 02-15-2023 Free T4 [Mass/Vol] 2.17 ng/dL 0.76-1.46 [facility] No Panel InformationOrdered By: Chencho Dupree on 02-15-2023 Free Triiodothyronine (T3) pg/dL 5.8 pg/mL 2.18-3.98 [facility] Thyroid Stimulating Hormone (TSH) < 0.01 uIU/mL 0.358-3.74 [facility] No Panel InformationOrdered By: Milagros Andrew on 01-22-2023 Total Triiodothyronine 5.63 ng/mL 0.6-1.81 [facility] Serum or plasma thyroperoxid ase antibody assay (units/volume)Ordered By: Milagros Andrew on 01-22-2023 TPO Ab Qn [IU]/mL 0-34 [facility] Comment on above: Performed at: [address] [id number] Director: Claire Jacob MD, Phone: [phone] at: - [facility] [address] [id number] Director: Carlos Roth PhD, Phone: [phone] Thyroid stimulating immunogl obulins detectionOrdered By: Milagros Andrew on 01-22-2023 Thyroid stimulating immunoglobulins Ql (S) 0.18 IU/L 0.00-0.55 [facility] Absolute lymphocyte countOrd ered By: Milagros Andrew on 01-21-2023 Lymphocytes Auto (Unsp spec) [#/Vol] 0.83 10*3/uL 0.83-4.51 [facility] Basophil percentageOrdered B y: Milagros Andrew on 01-21-2023 Basophils/100 WBC (Bld) 0.5 % 0-1 [facility] Bilirubin [Mass/Vol] 0.80 mg/dL 0.20-1.00 [facility] Comment on above: For patients on eltr ombopag therapy, use of Dimension [place] TBIL is not recommended. Chloride [Moles/Vol] 109 mmol/L 98-107 [facility] Eosinophils/100 WBC (Bld) 2.6 % 0-5 [facility] Glucose [Mass/Vol] 107 mg/dL 74-106 [facility] Comment on above: Fasting Glucose resu lt from 100 to 125 mg/dL suggests IMPAIRED HOMEOSTASIS per A.D.A. criteria. Neutrophils (Bld) [#/Vol] 2.0 10*3/uL 2.0-7.7 [facility] Neutrophils/100 WBC (Bld) 51.6 % 47-70 [facility] Potassium [Moles/Vol] 3.9 mmol/L 3.5-5.1 [facility] Protein [Mass/Vol] 5.8 g/dL 6.4-8.2 [facility] Sodium [Moles/Vol] 143 mmol/L 136-145 [facility] WBC (Bld) [#/Vol] 3.9 10*3/uL 4.4-11.0 [facility] Blood erythrocytes count (nu mber/volume)Ordered By: Milagros Andrew on 01-21-2023 RBC (Bld) [#/Vol] 3.68 10*6/uL 4.2-5.4 [facility] Blood hemoglobin measurement (mass/volume)Ordered By: Milagros Andrew on 01-21-2023 Hemoglobin (Bld) [Mass/Vol] 10.8 g/dL 12.0-15.0 [facility] Blood lymphocytes/100 leukoc ytesOrdered By: Milagros Andrew on 01-21-2023 Lymphocytes/100 WBC (Bld) 21.6 % 19-41 [facility] Blood monocytes/100 leukocyt esOrdered By: Milagros Andrew on 01-21-2023 Monocytes/100 WBC (Bld) 23.4 % 0-10 [facility] Blood platelet mean volumeOr dered By: Milagros Andrew on 01-21-2023 Platelet mean volume (Bld) [Entitic vol] 11.7 fL 6.2-12.0 [facility] Determination of erythrocyte mean corpuscular volume (MCV)Ordered By: Milagros Andrew on 01-21-2023 MCV (RBC) [Entitic vol] 93.5 fL 81-99 [facility] Hematocrit Auto (Bld) [Volum e fraction]Ordered By: Milagros Andrew on 01-21-2023 Hematocrit (Bld) [Volume fraction] 34.4 % 37-47 [facility] Laboratory - Chemistry and C hemistry - challengeOrdered By: Milagros Andrew on 01-21-2023 ALP [Catalytic activity/Vol] 84 U/L 45-117 [facility] ALT [Catalytic activity/Vol] 49 U/L 13-56 [facility] CO2 [Moles/Vol] 31.0 mmol/L 21.0-32.0 [facility] Free T4 [Mass/Vol] 6.95 ng/dL 0.76-1.46 [facility] Globulin (S) [Mass/Vol] 2.7 g/dL 2.2-4.2 [facility] Urea nitrogen/Creatinine [Mass ratio] 17.2 mg/mg 10-20 [facility] Laboratory - Hematology and Cell countsOrdered By: Milagros Andrew on 01-21-2023 Erythrocyte distribution width (RBC) [Entitic vol] 43.8 fL 35.1-43.9 [facility] Erythrocyte distribution width (RBC) [Ratio] 12.8 % 11.6-14.6 [facility] Immature granulocytes/100 WBC (Bld) 0.300 % 0.0-0.9 [facility] Comment on above: IG% - Immature Granu locytes (promyelocytes, myelocytes and metamyelocytes) > 1% indicates that a LEFT SHIFT is Present. MCH (RBC) [Entitic mass] 29.3 pg 27.0-32.0 [facility] Nucleated RBC/100 WBC (Bld) [Ratio] 0 % 0-5 [facility] MCHC Auto (RBC) [Mass/Vol]Or dered By: Milagros Andrew on 01-21-2023 MCHC (RBC) [Mass/Vol] 31.4 g/dL 32-36 [facility] No Panel InformationOrdered By: Milagros Andrew on 01-21-2023 Estimated GFR (MDRD) Amer 118 mL/min >60 [facility] Comment on above: GFR Calc Estimated GFR (MDRD) Non-Af Amer 98 mL/min >60 [facility] Comment on above: Non- GFR Calc Thyroid Stimulating Hormone (TSH) < 0.01 uIU/mL 0.358-3.74 [facility] Platelets bldOrdered By: Arian Andrew on 01-21-2023 Platelets (Bld) [#/Vol] 211 10*3/uL 150-450 [facility] Serum or plasma albumin rubne urement (mass/volume)Ordered By: Milagros Andrew on 01-21-2023 Albumin [Mass/Vol] 3.1 g/dL 3.2-5.0 [facility] Serum or plasma albumin/glob ulin mass ratioOrdered By: Milagros Andrew on 01-21-2023 Albumin/Globulin [Mass ratio] 1.1 {ratio} 0.9-2.4 [facility] Serum or plasma calcium ruben urement (mass/volume)Ordered By: Milgaros Andrew on 01-21-2023 Calcium [Mass/Vol] 8.6 mg/dL 8.5-10.1 [facility] Serum or plasma creatinine m easurement (mass/volume)Ordered By: Milagros Andrew on 01-21-2023 Creatinine [Mass/Vol] 0.64 mg/dL 0.55-1.02 [facility] Comment on above: The validity of the calculated GFR & GFRAA in patients over 70 years has not been determined. Clinical correlation is essential. Serum or plasma urea nitroge n measurement (mass/volume)Ordered By: Milagros Andrew on 01-21-2023 Urea nitrogen [Mass/Vol] 11 mg/dL 7-18 [facility] Thin prep Papanicolaou smear with manual screeningOrdered By: Milagros Andrew on 01-21-2023 Thin prep Papanicolaou smear with manual screening 31 U/L 15-37 [facility] Thin prep Papanicolaou smear with manual screening 3 5-15 [facility] Absolute lymphocyte countOrd ered By: Milagros Andrew on 01-06-2023 Lymphocytes Auto (Unsp spec) [#/Vol] 0.83 10*3/uL 0.83-4.51 [facility] Basophil percentageOrdered B y: Milagros Andrew on 01-06-2023 Basophils/100 WBC (Bld) 0.3 % 0-1 [facility] Bilirubin [Mass/Vol] 0.80 mg/dL 0.20-1.00 [facility] Comment on above: For patients on eltr ombopag therapy, use of Dimension [place] TBIL is not recommended. Chloride [Moles/Vol] 107 mmol/L 98-107 [facility] Eosinophils/100 WBC (Bld) 3.8 % 0-5 [facility] Glucose [Mass/Vol] 107 mg/dL 74-106 [facility] Comment on above: Fasting Glucose resu lt from 100 to 125 mg/dL suggests IMPAIRED HOMEOSTASIS per A.D.A. criteria. Neutrophils (Bld) [#/Vol] 2.1 10*3/uL 2.0-7.7 [facility] Neutrophils/100 WBC (Bld) 56.2 % 47-70 [facility] Potassium [Moles/Vol] 4.2 mmol/L 3.5-5.1 [facility] Protein [Mass/Vol] 5.8 g/dL 6.4-8.2 [facility] Sodium [Moles/Vol] 141 mmol/L 136-145 [facility] WBC (Bld) [#/Vol] 3.7 10*3/uL 4.4-11.0 [facility] Blood erythrocytes count (nu mber/volume)Ordered By: Milagros Andrew on 01-06-2023 RBC (Bld) [#/Vol] 3.66 10*6/uL 4.2-5.4 [facility] Blood hemoglobin measurement (mass/volume)Ordered By: Milagros Andrew on 01-06-2023 Hemoglobin (Bld) [Mass/Vol] 11.0 g/dL 12.0-15.0 [facility] Blood lymphocytes/100 leukoc ytesOrdered By: Milagros Andrew on 01-06-2023 Lymphocytes/100 WBC (Bld) 22.4 % 19-41 [facility] Blood monocytes/100 leukocyt esOrdered By: Milagros Andrew on 01-06-2023 Monocytes/100 WBC (Bld) 17.0 % 0-10 [facility] Blood platelet mean volumeOr dered By: Milagros Andrew on 01-06-2023 Platelet mean volume (Bld) [Entitic vol] 12.3 fL 6.2-12.0 [facility] Determination of erythrocyte mean corpuscular volume (MCV)Ordered By: Milagros Andrew on 01-06-2023 MCV (RBC) [Entitic vol] 94.3 fL 81-99 [facility] Hematocrit Auto (Bld) [Volum e fraction]Ordered By: Milagros Andrew on 01-06-2023 Hematocrit (Bld) [Volume fraction] 34.5 % 37-47 [facility] Laboratory - Chemistry and C hemistry - challengeOrdered By: Milagros Andrew on 01-06-2023 ALP [Catalytic activity/Vol] 90 U/L 45-117 [facility] ALT [Catalytic activity/Vol] 65 U/L 13-56 [facility] CO2 [Moles/Vol] 26.0 mmol/L 21.0-32.0 [facility] Globulin (S) [Mass/Vol] 3.0 g/dL 2.2-4.2 [facility] Urea nitrogen/Creatinine [Mass ratio] 29.1 mg/mg 10-20 [facility] Laboratory - Hematology and Cell countsOrdered By: Milagros Andrew on 01-06-2023 Erythrocyte distribution width (RBC) [Entitic vol] 41.4 fL 35.1-43.9 [facility] Erythrocyte distribution width (RBC) [Ratio] 11.9 % 11.6-14.6 [facility] Immature granulocytes/100 WBC (Bld) 0.300 % 0.0-0.9 [facility] Comment on above: IG% - Immature Granu locytes (promyelocytes, myelocytes and metamyelocytes) > 1% indicates that a LEFT SHIFT is Present. MCH (RBC) [Entitic mass] 30.1 pg 27.0-32.0 [facility] Nucleated RBC/100 WBC (Bld) [Ratio] 0 % 0-5 [facility] MCHC Auto (RBC) [Mass/Vol]Or dered By: Milagros Andrew on 01-06-2023 MCHC (RBC) [Mass/Vol] 31.9 g/dL 32-36 [facility] No Panel InformationOrdered By: Milagros Andrew on 01-06-2023 Estimated GFR (MDRD) Amer 179 mL/min >60 [facility] Comment on above: GFR Calc Estimated GFR (MDRD) Non-Af Amer 148 mL/min >60 [facility] Comment on above: Non- GFR Calc Platelets bldOrdered By: Arian Andrew on 01-06-2023 Platelets (Bld) [#/Vol] 290 10*3/uL 150-450 [facility] Serum or plasma albumin ruben urement (mass/volume)Ordered By: Milagros Andrew on 01-06-2023 Albumin [Mass/Vol] 2.8 g/dL 3.2-5.0 [facility] Serum or plasma albumin/glob ulin mass ratioOrdered By: Milagros Andrew on 01-06-2023 Albumin/Globulin [Mass ratio] 0.9 {ratio} 0.9-2.4 [facility] Serum or plasma calcium ruben urement (mass/volume)Ordered By: Milagros Andrew on 01-06-2023 Calcium [Mass/Vol] 9.0 mg/dL 8.5-10.1 [facility] Serum or plasma creatinine m easurement (mass/volume)Ordered By: Milagros Andrew on 01-06-2023 Creatinine [Mass/Vol] 0.45 mg/dL 0.55-1.02 [facility] Comment on above: The validity of the calculated GFR & GFRAA in patients over 70 years has not been determined. Clinical correlation is essential. Serum or plasma urea nitroge n measurement (mass/volume)Ordered By: Milagros Andrew on 01-06-2023 Urea nitrogen [Mass/Vol] 13 mg/dL 7-18 [facility] Thin prep Papanicolaou smear with manual screeningOrdered By: Milagros Andrew on 01-06-2023 Thin prep Papanicolaou smear with manual screening 42 U/L 15-37 [facility] Thin prep Papanicolaou smear with manual screening 8 5-15 [facility] Whole blood hemoglobin A1c/t otal hemoglobin ratio (mass fraction)Ordered By: Milagros Andrew on 01-06-2023 HbA1c (Bld) [Mass fraction] 5.6 % 3.8-5.6 [facility] Comment on above: Normal < 5.7 % Predi abetic 5.7 - 6.4 % Diabetic >or= 6.5 % Please note range changes. Absolute lymphocyte countOrd ered By: Markos Burton on 12-29-2022 Lymphocytes Auto (Unsp spec) [#/Vol] 0.58 10*3/uL 0.83-4.51 [facility] Basophil percentageOrdered B y: Markos Burton on 12-29-2022 Chloride [Moles/Vol] 106 mmol/L 98-107 [facility] Glucose [Mass/Vol] 172 mg/dL 74-106 [facility] Comment on above: Fasting Glucose resu lt greater than or equal to 126 mg/dL suggests DIABETES MELLITUS per A.D.A. criteria. Potassium [Moles/Vol] 3.1 mmol/L 3.5-5.1 [facility] Sodium [Moles/Vol] 142 mmol/L 136-145 [facility] Basophil percentage 3.3 mg/dL 2.5-4.9 [facility] Basophils/100 WBC (Bld) 0.3 % 0-1 [facility] Eosinophils/100 WBC (Bld) 1.1 % 0-5 [facility] Neutrophils (Bld) [#/Vol] 2.0 10*3/uL 2.0-7.7 [facility] Neutrophils/100 WBC (Bld) 55.8 % 47-70 [facility] WBC (Bld) [#/Vol] 3.5 10*3/uL 4.4-11.0 [facility] Blood erythrocytes count (nu mber/volume)Ordered By: Markos Burton on 12-29-2022 RBC (Bld) [#/Vol] 3.35 10*6/uL 4.2-5.4 [facility] Blood hemoglobin measurement (mass/volume)Ordered By: Markos Burton on 12-29-2022 Hemoglobin (Bld) [Mass/Vol] 10.1 g/dL 12.0-15.0 [facility] Blood lymphocytes/100 leukoc ytesOrdered By: Markos Burton on 12-29-2022 Lymphocytes/100 WBC (Bld) 16.4 % 19-41 [facility] Blood monocytes/100 leukocyt esOrdered By: Markos Burton on 12-29-2022 Monocytes/100 WBC (Bld) 26.1 % 0-10 [facility] Blood platelet mean volumeOr dered By: Markos Burton on 12-29-2022 Platelet mean volume (Bld) [Entitic vol] 12.3 fL 6.2-12.0 [facility] Determination of erythrocyte mean corpuscular volume (MCV)Ordered By: Markos Burton on 12-29-2022 MCV (RBC) [Entitic vol] 92.8 fL 81-99 [facility] Hematocrit Auto (Bld) [Volum e fraction]Ordered By: Markos Burton on 12-29-2022 Hematocrit (Bld) [Volume fraction] 31.1 % 37-47 [facility] Laboratory - Chemistry and C hemistry - challengeOrdered By: Markos Burton on 12-29-2022 CO2 [Moles/Vol] 31.0 mmol/L 21.0-32.0 [facility] Urea nitrogen/Creatinine [Mass ratio] 23.1 mg/mg 10-20 [facility] Magnesium [Mass/Vol] 2.3 mg/dL 1.6-2.6 [facility] Laboratory - Hematology and Cell countsOrdered By: Markos Burton on 12-29-2022 Erythrocyte distribution width (RBC) [Entitic vol] 39.8 fL 35.1-43.9 [facility] Erythrocyte distribution width (RBC) [Ratio] 11.7 % 11.6-14.6 [facility] Immature granulocytes/100 WBC (Bld) 0.300 % 0.0-0.9 [facility] Comment on above: IG% - Immature Granu locytes (promyelocytes, myelocytes and metamyelocytes) > 1% indicates that a LEFT SHIFT is Present. MCH (RBC) [Entitic mass] 30.1 pg 27.0-32.0 [facility] Nucleated RBC/100 WBC (Bld) [Ratio] 0 % 0-5 [facility] MCHC Auto (RBC) [Mass/Vol]Or dered By: Markos Burton on 12-29-2022 MCHC (RBC) [Mass/Vol] 32.5 g/dL 32-36 [facility] No Panel InformationOrdered By: Markos Burton on 12-29-2022 Estimated Creatinine Clearance Calc 40.63 ml/min [facility] Estimated GFR (MDRD) Amer 117 mL/min >60 [facility] Comment on above: GFR Calc Estimated GFR (MDRD) Non-Af Amer 96 mL/min >60 [facility] Comment on above: Non- GFR Calc Platelets bldOrdered By: Tylor Burton on 12-29-2022 Platelets (Bld) [#/Vol] 180 10*3/uL 150-450 [facility] Review by pathologistOrdered By: Markos Burton on 12-29-2022 Pathologist review Jay (Unsp spec) [Interp] Reviewed [facility] Comment on above: Previous reported re sult: Angelica wallace Edited by: RGOFLOYD on 12/30/22:1012LeukopeniaNormocytic anemia.Clinical correlation necessary.Boubacar Olivarez M.D. 12/30/22 AMENDED REPORT 12/30/22 1012 PATH REV previously reported as: Angelica wallace Serum or plasma calcium ruben urement (mass/volume)Ordered By: Markos Burton on 12-29-2022 Calcium [Mass/Vol] 8.7 mg/dL 8.5-10.1 [facility] Serum or plasma creatinine m easurement (mass/volume)Ordered By: Markos Burton on 12-29-2022 Creatinine [Mass/Vol] 0.65 mg/dL 0.55-1.02 [facility] Comment on above: The validity of the calculated GFR & GFRAA in patients over 70 years has not been determined. Clinical correlation is essential. Serum or plasma urea nitroge n measurement (mass/volume)Ordered By: Markos Burton on 12-29-2022 Urea nitrogen [Mass/Vol] 15 mg/dL 7-18 [facility] Thin prep Papanicolaou smear with manual screeningOrdered By: Markos Burton on 12-29-2022 Thin prep Papanicolaou smear with manual screening 5 5-15 [facility] Blood manual differential co mment interpretation (narrative result)Ordered By: Aneudy Santillan on 12-28-2022 Manual differential comment Jay (Bld) [Interp] SCANNED [facility] Comment on above: LYMPHOPENIA Respiratory pathogens detect ion panel by molecular detection methodOrdered By: Aneudy Santillan on 12-27-2022 Respiratory pathogens DNA and RNA panel ANGELINE+probe (Resp) [facility] Respiratory pathogens DNA and RNA panel ANGELINE+probe (Resp) [facility] Amorphous sediment detection in urine sediment by light microscopyOrdered By: Ector Brown on 12-26-2022 Amorphous sediment LM Ql (Urine sed) 1+ [facility] Basophil percentageOrdered B y: Ector Brown on 12-26-2022 Basophil percentage 0 SEEN /hpf 0-5 [facility] Bilirubin [Mass/Vol] 1.20 mg/dL 0.20-1.00 [facility] Comment on above: For patients on eltr ombopag therapy, use of Dimension [place] TBIL is not recommended. Protein [Mass/Vol] 6.3 g/dL 6.4-8.2 [facility] Lactate [Moles/Vol] 1.5 mmol/L 0.4-2.0 [facility] Bilirubin Test strip Ql (U)O rdered By: Ector Brown on 12-26-2022 Bilirubin Ql (U) Negative Negative [facility] Culture, urineOrdered By: Do laurel Brown on 12-26-2022 Bacteria identified Cx Nom (U) Pseudomonas aeruginosa [facility] Bacteria identified Cx Nom (U) Pseudomonas aeruginosa [facility] INR in Blood by Coagulation assayOrdered By: Ector Brown on 12-26-2022 INR Coag (Bld) [Relative time] 1.1 {INR} [facility] Ketones Test strip Ql (U)Ord ered By: Ector Brown on 12-26-2022 Ketones Ql (U) 5 mg/dl Negative [facility] Laboratory - Chemistry and C hemistry - challengeOrdered By: Ector Brown on 12-26-2022 ALP [Catalytic activity/Vol] 74 U/L 45-117 [facility] ALT [Catalytic activity/Vol] 76 U/L 13-56 [facility] Globulin (S) [Mass/Vol] 3.1 g/dL 2.2-4.2 [facility] Laboratory - CoagulationOrde red By: Ector Brown on 12-26-2022 aPTT Coag (Bld) [Time] 29.7 s 24.1-36.2 [facility] PT Coag (PPP) [Time] 13.9 s 11.7-14.9 [facility] Laboratory - Microbiology an d Antimicrobial susceptibilityOrdered By: Ector Brown on 12-26-2022 Bacteria identified Cx Nom (Bld) No growth in 5 days. [facility] Bacteria identified Cx Nom (Bld) No growth in 5 days. [facility] Lower GI hemoglobin IA Ql (S tl)Ordered By: Ector Brown on 12-26-2022 Stool Occult Blood (RUFINA) Positive [facility] Stool Occult Blood (RUFINA) Positive [facility] Mucus LM Ql (Urine sed)Order ed By: Ector Brown on 12-26-2022 Mucus Ql (Urine sed) 0 SEEN /hpf [facility] Nitrite Test strip Ql (U)Ord ered By: Ector Brown on 12-26-2022 Nitrite Ql (U) Negative Negative [facility] No Panel InformationOrdered By: Aneudy Santillan on 12-26-2022 Troponin I High Sensitivity 112 pg/mL 3.0-54.0 [facility] Comment on above: Please Note: New [place] t Units and Gender Specific Reference Ranges. For more information see Policy Stat Procedure [place] High Sensitivity Troponin (TNIH) and attachments. No Panel InformationOrdered By: Ector Brown on 12-26-2022 D-Dimer Quantitative (PE/DVT) 0.54 FEU/ug/m 0.27-0.49 [facility] Comment on above: D-Dimer ELEVATED (>0 .49): Additional studies and clinicalassessments are indicated to conclude diagnosis of:Deep Vein Thrombosis (DVT) or Pulmonary Embolism (PE)CRITICAL VALUE VERIFIED. CALLED TO RUSS BELLO12/26/2222 Sheba Mayorga.RESULTS READ BACK BY SAME . Protein Test strip Ql (U)Ord ered By: Ector Brown on 12-26-2022 Protein Ql (U) 30 mg/dl Negative [facility] Serum or plasma albumin ruben urement (mass/volume)Ordered By: Ector Brown on 12-26-2022 Albumin [Mass/Vol] 3.2 g/dL 3.2-5.0 [facility] Serum or plasma albumin/glob ulin mass ratioOrdered By: Ector Brown on 12-26-2022 Albumin/Globulin [Mass ratio] 1.0 {ratio} 0.9-2.4 [facility] Squamous epithelial cells de tection in urine sediment by light microscopyOrdered By: Ector Brown on 12-26-2022 Epithelial cells.squamous LM Ql (Urine sed) 0 SEEN /hpf 5-10 [facility] Thin prep Papanicolaou smear with manual screeningOrdered By: Ector Brown on 12-26-2022 Thin prep Papanicolaou smear with manual screening 31 U/L 15-37 [facility] Urine blood detectionOrdered By: Ector Brown on 12-26-2022 RBC Ql (U) 10 /ul Negative [facility] RBC Ql (U) 0 SEEN /hpf 0-5 [facility] Urine clarityOrdered By: Tariq Brown on 12-26-2022 Clarity (U) Clear Clear [facility] Urine color determinationOrd ered By: Ector Brown on 12-26-2022 Color (U) Yellow Yellow [facility] Urine glucose detectionOrder ed By: Ector Brown on 12-26-2022 Glucose Ql (U) Normal mg/dl Normal [facility] Urine leukocyte esterase det ection by dipstickOrdered By: Ector Brown on 12-26-2022 Leukocyte esterase Test strip Ql (U) Negative Negative [facility] Urine pHOrdered By: Ector montano on 12-26-2022 pH (U) 7.0 [pH] 5.0 - 8.0 [facility] Urine sediment bacteria coun t by microscopy (number/high power field)Ordered By: Ector Brown on 12-26-2022 Bacteria LM.HPF (Urine sed) [#/Area] 0 /[HPF] None Seen [facility] Urine specific gravity measu rementOrdered By: Ector Brown on 12-26-2022 Specific gravity (U) [Rel density] 1.010 1.002-1.030 [facility] Urobilinogen Auto test strip Ql (U)Ordered By: Ector Brown on 12-26-2022 Urobilinogen Ql (U) Normal mg/dl Normal [facility] Absolute lymphocyte countOrd ered By: Milagros Andrew on 12-10-2022 Lymphocytes Auto (Unsp spec) [#/Vol] 0.85 10*3/uL 0.83-4.51 [facility] Basophil percentageOrdered B y: Milagros Andrew on 12-10-2022 Basophil percentage 0 SEEN /hpf 0-5 [facility] Basophils/100 WBC (Bld) 0.5 % 0-1 [facility] Bilirubin [Mass/Vol] 1.00 mg/dL 0.20-1.00 [facility] Comment on above: For patients on eltr ombopag therapy, use of Dimension [place] TBIL is not recommended. Chloride [Moles/Vol] 104 mmol/L 98-107 [facility] Eosinophils/100 WBC (Bld) 1.4 % 0-5 [facility] Glucose [Mass/Vol] 124 mg/dL 74-106 [facility] Comment on above: Fasting Glucose resu lt from 100 to 125 mg/dL suggests IMPAIRED HOMEOSTASIS per A.D.A. criteria. Neutrophils (Bld) [#/Vol] 4.8 10*3/uL 2.0-7.7 [facility] Neutrophils/100 WBC (Bld) 71.9 % 47-70 [facility] Potassium [Moles/Vol] 3.9 mmol/L 3.5-5.1 [facility] Protein [Mass/Vol] 7.7 g/dL 6.4-8.2 [facility] Sodium [Moles/Vol] 140 mmol/L 136-145 [facility] WBC (Bld) [#/Vol] 6.6 10*3/uL 4.4-11.0 [facility] Bilirubin Test strip Ql (U)O rdered By: Milagros Andrew on 12-10-2022 Bilirubin Ql (U) Negative Negative [facility] Blood erythrocytes count (nu mber/volume)Ordered By: Milagros Andrew on 12-10-2022 RBC (Bld) [#/Vol] 4.30 10*6/uL 4.2-5.4 [facility] Blood hemoglobin measurement (mass/volume)Ordered By: Milagros Andrew on 12-10-2022 Hemoglobin (Bld) [Mass/Vol] 13.6 g/dL 12.0-15.0 [facility] Blood lymphocytes/100 leukoc ytesOrdered By: Milagros Andrew on 12-10-2022 Lymphocytes/100 WBC (Bld) 12.9 % 19-41 [facility] Blood monocytes/100 leukocyt esOrdered By: Milagros Andrew on 12-10-2022 Monocytes/100 WBC (Bld) 13.0 % 0-10 [facility] Blood platelet mean volumeOr dered By: Milagros Andrew on 12-10-2022 Platelet mean volume (Bld) [Entitic vol] 11.1 fL 6.2-12.0 [facility] Determination of erythrocyte mean corpuscular volume (MCV)Ordered By: Milagros Andrew on 12-10-2022 MCV (RBC) [Entitic vol] 94.2 fL 81-99 [facility] Hematocrit Auto (Bld) [Volum e fraction]Ordered By: Milagros Andrew on 12-10-2022 Hematocrit (Bld) [Volume fraction] 40.5 % 37-47 [facility] Ketones Test strip Ql (U)Ord ered By: Milagros Andrew on 12-10-2022 Ketones Ql (U) 5 mg/dl Negative [facility] Laboratory - Chemistry and C hemistry - challengeOrdered By: Milagros Andrew on 12-10-2022 ALP [Catalytic activity/Vol] 94 U/L 45-117 [facility] ALT [Catalytic activity/Vol] 31 U/L 13-56 [facility] CO2 [Moles/Vol] 29.0 mmol/L 21.0-32.0 [facility] Globulin (S) [Mass/Vol] 3.9 g/dL 2.2-4.2 [facility] Urea nitrogen/Creatinine [Mass ratio] 14.0 mg/mg 10-20 [facility] Laboratory - Hematology and Cell countsOrdered By: Milagros Andrew on 12-10-2022 Erythrocyte distribution width (RBC) [Entitic vol] 43.3 fL 35.1-43.9 [facility] Erythrocyte distribution width (RBC) [Ratio] 12.4 % 11.6-14.6 [facility] Immature granulocytes/100 WBC (Bld) 0.300 % 0.0-0.9 [facility] Comment on above: IG% - Immature Granu locytes (promyelocytes, myelocytes and metamyelocytes) > 1% indicates that a LEFT SHIFT is Present. MCH (RBC) [Entitic mass] 31.6 pg 27.0-32.0 [facility] Nucleated RBC/100 WBC (Bld) [Ratio] 0 [facility] [Mass/Vol]Or dered By: Milagros Andrew on 12-10-2022 MCHC (RBC) [Mass/Vol] 33.6 g/dL 32-36 [facility] Mucus LM Ql (Urine sed)Order ed By: Milagros Andrew on 12-10-2022 Mucus Ql (Urine sed) 0 SEEN /hpf [facility] Nitrite Test strip Ql (U)Ord ered By: Milagros Andrew on 12-10-2022 Nitrite Ql (U) Negative Negative [facility] No Panel InformationOrdered By: Milagros Andrew on 12-10-2022 Estimated GFR (MDRD) Amer 93 mL/min >60 [facility] Comment on above: GFR Calc Estimated GFR (MDRD) Non-Af Amer 77 mL/min >60 [facility] Comment on above: Non- GFR Calc Platelets bldOrdered By: Arian Andrew on 12-10-2022 Platelets (Bld) [#/Vol] 284 10*3/uL 150-450 [facility] Protein Test strip Ql (U)Ord ered By: Milagros Andrew on 12-10-2022 Protein Ql (U) 15 mg/dl Negative [facility] Serum or plasma albumin ruben urement (mass/volume)Ordered By: Milagros Andrew on 12-10-2022 Albumin [Mass/Vol] 3.8 g/dL 3.2-5.0 [facility] Serum or plasma albumin/glob ulin mass ratioOrdered By: Milagros Andrew on 12-10-2022 Albumin/Globulin [Mass ratio] 1.0 {ratio} 0.9-2.4 [facility] Serum or plasma calcium ruben urement (mass/volume)Ordered By: Milagros Andrew on 12-10-2022 Calcium [Mass/Vol] 9.8 mg/dL 8.5-10.1 [facility] Serum or plasma creatinine m easurement (mass/volume)Ordered By: Milagros Andrew on 12-10-2022 Creatinine [Mass/Vol] 0.79 mg/dL 0.55-1.02 [facility] Comment on above: The validity of the calculated GFR & GFRAA in patients over 70 years has not been determined. Clinical correlation is essential. Serum or plasma urea nitroge n measurement (mass/volume)Ordered By: Milagros Andrew on 12-10-2022 Urea nitrogen [Mass/Vol] 11 mg/dL 7-18 [facility] Squamous epithelial cells de tection in urine sediment by light microscopyOrdered By: Milagros Andrew on 12-10-2022 Epithelial cells.squamous LM Ql (Urine sed) 0 SEEN /hpf 5-10 [facility] Thin prep Papanicolaou smear with manual screeningOrdered By: Milagros Andrew on 12-10-2022 Thin prep Papanicolaou smear with manual screening 26 U/L 15-37 [facility] Thin prep Papanicolaou smear with manual screening 7 5-15 [facility] Urine blood detectionOrdered By: Milagros Andrew on 12-10-2022 RBC Ql (U) Negative Negative [facility] RBC Ql (U) 0 SEEN /hpf 0-5 [facility] Urine clarityOrdered By: Arian Andrew on 12-10-2022 Clarity (U) Sl. Cloudy Clear [facility] Urine color determinationOrd ered By: Milagros Andrew on 12-10-2022 Color (U) Yellow Yellow [facility] Urine glucose detectionOrder ed By: Milagros Andrew on 12-10-2022 Glucose Ql (U) Normal mg/dl Normal [facility] Urine leukocyte esterase det ection by dipstickOrdered By: Milagros Andrew on 12-10-2022 Leukocyte esterase Test strip Ql (U) Negative Negative [facility] Urine pHOrdered By: Milagros valencia on 12-10-2022 pH (U) 7.0 [pH] 5.0 - 8.0 [facility] Urine sediment bacteria coun t by microscopy (number/high power field)Ordered By: Milagros Andrew on 12-10-2022 Bacteria LM.HPF (Urine sed) [#/Area] 0 /[HPF] None Seen [facility] Urine specific gravity measu rementOrdered By: Milagros Andrew on 12-10-2022 Specific gravity (U) [Rel density] 1.010 1.002-1.030 [facility] Urobilinogen Auto test strip Ql (U)Ordered By: Milagros Andrew on 12-10-2022 Urobilinogen Ql (U) Normal mg/dl Normal [facility] Absolute lymphocyte countOrd ered By: Cassandra Jose on 07-02-2022 Lymphocytes Auto (Unsp spec) [#/Vol] 1.21 10*3/uL 0.83-4.51 [facility] Basophil percentageOrdered B y: Cassandra Garcia on 07-02-2022 Basophils/100 WBC (Bld) 1.1 % 0-1 [facility] Bilirubin [Mass/Vol] 0.70 mg/dL 0.20-1.00 [facility] Comment on above: For patients on eltr ombopag therapy, use of Dimension [place] TBIL is not recommended. Chloride [Moles/Vol] 102 mmol/L 98-107 [facility] Cholesterol [Mass/Vol] 198 mg/dL <200 [facility] Comment on above: <200 mg/dL Desirable 200-240 mg/dL Borderline >240 mg/dL High Risk Eosinophils/100 WBC (Bld) 3.8 % 0-5 [facility] Glucose [Mass/Vol] 94 mg/dL 74-106 [facility] Neutrophils (Bld) [#/Vol] 3.5 10*3/uL 2.0-7.7 [facility] Neutrophils/100 WBC (Bld) 63.2 % 47-70 [facility] Potassium [Moles/Vol] 3.7 mmol/L 3.5-5.1 [facility] Protein [Mass/Vol] 7.4 g/dL 6.4-8.2 [facility] Sodium [Moles/Vol] 141 mmol/L 136-145 [facility] Triglyceride [Mass/Vol] 114 mg/dL <199 [facility] Comment on above: The drugs N-Acetylcy steine and Metamizole may falsely depress this assay.Serum Triglycerides Reference Interval Normal <150 mg/dL Borderline high 150 - 199 mg/dL High 200 - 499 mg/dL Very High > or = 500 mg/dL WBC (Bld) [#/Vol] 5.6 10*3/uL 4.4-11.0 [facility] Blood erythrocytes count (nu mber/volume)Ordered By: Cassandra Garcia on 07-02-2022 RBC (Bld) [#/Vol] 4.56 10*6/uL 4.2-5.4 [facility] Blood hemoglobin measurement (mass/volume)Ordered By: Cassandra Garcia on 07-02-2022 Hemoglobin (Bld) [Mass/Vol] 14.0 g/dL 12.0-15.0 [facility] Blood lymphocytes/100 leukoc ytesOrdered By: [facility] on 07-02-2022 Lymphocytes/100 WBC (Bld) 21.7 % 19-41 [facility] Blood monocytes/100 leukocyt esOrdered By: Cassandraangle [facility] on 07-02-2022 Monocytes/100 WBC (Bld) 9.7 % 0-10 [facility] Blood platelet mean volumeOr dered By: Cassandra Garcia on 07-02-2022 Platelet mean volume (Bld) [Entitic vol] 11.5 fL 6.2-12.0 [facility] Determination of erythrocyte mean corpuscular volume (MCV)Ordered By: Cassandra Garcia on 07-02-2022 MCV (RBC) [Entitic vol] 95.0 fL 81-99 [facility] Hematocrit Auto (Bld) [Volum e fraction]Ordered By: Cassandra Garcia on 07-02-2022 Hematocrit (Bld) [Volume fraction] 43.3 % 37-47 [facility] Laboratory - Chemistry and C hemistry - challengeOrdered By: Cassandra Garcia on 07-02-2022 ALP [Catalytic activity/Vol] 101 U/L 45-117 [facility] ALT [Catalytic activity/Vol] 29 U/L 13-56 [facility] CO2 [Moles/Vol] 29.0 mmol/L 21.0-32.0 [facility] Free T4 [Mass/Vol] 1.44 ng/dL 0.76-1.46 [facility] Globulin (S) [Mass/Vol] 3.2 g/dL 2.2-4.2 [facility] Urea nitrogen/Creatinine [Mass ratio] 15.8 mg/mg 10-20 [facility] Laboratory - Hematology and Cell countsOrdered By: Cassandra Garcia on 07-02-2022 Erythrocyte distribution width (RBC) [Entitic vol] 45.0 fL 35.1-43.9 [facility] Erythrocyte distribution width (RBC) [Ratio] 12.9 % 11.6-14.6 [facility] Immature granulocytes/100 WBC (Bld) 0.500 % 0.0-0.9 [facility] Comment on above: IG% - Immature Granu locytes (promyelocytes, myelocytes and metamyelocytes) > 1% indicates that a LEFT SHIFT is Present. MCH (RBC) [Entitic mass] 30.7 pg 27.0-32.0 [facility] Nucleated RBC/100 WBC (Bld) [Ratio] 0 % 0-5 [facility] MCHC Auto (RBC) [Mass/Vol]Or dered By: Cassandra Garcia on 07-02-2022 MCHC (RBC) [Mass/Vol] 32.3 g/dL 32-36 [facility] No Panel InformationOrdered By: Cassandra Garcia on 07-02-2022 Estimated GFR (MDRD) Amer 88 mL/min >60 [facility] Comment on above: GFR Calc Estimated GFR (MDRD) Non-Af Amer 73 mL/min >60 [facility] Comment on above: Non- GFR Calc Thyroid Stimulating Hormone (TSH) 0.49 uIU/mL 0.358-3.74 [facility] Vitamin D 25-Hydroxy 60.0 ng/mL [facility] Comment on above: Vitamin D 25(OH) Sta tus Range Deficiency <20 ng/mL (50nmol/L) Insufficiency 20 - 30 ng/mL (50 - 75 nmol/L) Sufficiency 30 - 100 ng/mL (75 - 250 nmol/L) Toxicity >100 ng/mL (>250 nmol/L) Platelets bldOrdered By: Sumaya Garcia on 07-02-2022 Platelets (Bld) [#/Vol] 252 10*3/uL 150-450 [facility] Serum or plasma albumin ruben urement (mass/volume)Ordered By: Cassandra Garcia on 07-02-2022 Albumin [Mass/Vol] 4.2 g/dL 3.2-5.0 [facility] Serum or plasma albumin/glob ulin mass ratioOrdered By: Cassandra Garcia on 07-02-2022 Albumin/Globulin [Mass ratio] 1.3 {ratio} 0.9-2.4 [facility] Serum or plasma calcium ruben urement (mass/volume)Ordered By: Cassandra Garcia on 07-02-2022 Calcium [Mass/Vol] 9.5 mg/dL 8.5-10.1 [facility] Serum or plasma cholesterol in HDL measurement (mass/volume)Ordered By: Cassandra Garcia on 07-02-2022 Cholesterol in HDL [Mass/Vol] 107 mg/dL >40 [facility] Comment on above: The drugs N-Acetylcy steine and Metamizole may falsely depress this assay. Reference Range HDL <40 mg/dL Low HDL Cholesterol HDL >or= 60 mg/dL High HDL Cholesterol Serum or plasma cholesterol in VLDL measurement (mass/volume)Ordered By: Cassandra Garcia on 07-02-2022 Cholesterol in VLDL [Mass/Vol] 23 mg/dL 5-40 [facility] Serum or plasma creatinine m easurement (mass/volume)Ordered By: Cassandra Garcia on 07-02-2022 Creatinine [Mass/Vol] 0.82 mg/dL 0.55-1.02 [facility] Comment on above: The validity of the calculated GFR & GFRAA in patients over 70 years has not been determined. Clinical correlation is essential. Serum or plasma low density lipoprotein (LDL) cholesterol measurement (mass/volume)Ordered By: Cassandra Garcia on 07-02-2022 Cholesterol in LDL [Mass/Vol] 68 mg/dL 0-130 [facility] Serum or plasma urea nitroge n measurement (mass/volume)Ordered By: Cassandratod Garcia on 07-02-2022 Urea nitrogen [Mass/Vol] 13 mg/dL 7-18 [facility] Thin prep Papanicolaou smear with manual screeningOrdered By: Cassandra Garcia on 07-02-2022 Thin prep Papanicolaou smear with manual screening 25 U/L 15-37 [facility] Thin prep Papanicolaou smear with manual screening 10 5-15 [facility] Laboratory - Microbiology an d Antimicrobial susceptibilityOrdered By: Cassandra Garcia on 05-21-2022 SARS-CoV-2 (COVID-19) RNA ANGELINE+probe Ql (Unsp spec) Not detected Not Detect [facility] Comment on above: Normal Reference Ran ge: Not DetectedMethod:(RT-PCR) real-time reverse transcriptase PCRLuminex JONAS Instrument*The Food and Drug Administration (FDA) has issued an Emergency Use Authorization (EAU) for the JONAS SARS-CoV-2 Assay for the rapid detection of the virus that causes COVID-19. This test has been validated, but the FDAs independent review of this validation is pending.*Negative results do not preclude infection and should not be used as the sole basis for treatment or patient management. Optimum specimen types and timing for peak viral levels during infections caused by SARS-CoV-2 have not been determined. Collection of multiple specimens from the same patient may be necessary to detect the virus. The possibility of a false negative result should be considered if the patient has clinical presentation or has had recent exposure. No Panel Informationon 05-21 Influenza Types A,B Rapid (Clinic) Negative [facility] No Panel Informationon 03-13 Miscellaneous Test See comment [facility] Work Phone: Comment on above: No Salmonella or Sue gella recovered.No Campylobacter species isolated.Negative for E.coli Shiga Toxin EIA. Laboratory - Microbiology an d Antimicrobial susceptibilityon 01-30-2022 SARS-CoV-2 (COVID-19) RNA ANGELINE+probe Ql (Unsp spec) Not detected Not Detect [facility] Work Phone: Comment on above: Normal Reference Ran ge: Not DetectedMethod:(RT-PCR) real-time reverse transcriptase PCRLuminex JONAS Instrument*The Food and Drug Administration (FDA) has issued an Emergency Use Authorization (EAU) for the JONAS SARS-CoV-2 Assay for the rapid detection of the virus that causes COVID-19. This test has been validated, but the FDAs independent review of this validation is pending.*Negative results do not preclude infection and should not be used as the sole basis for treatment or patient management. Optimum specimen types and timing for peak viral levels during infections caused by SARS-CoV-2 have not been determined. Collection of multiple specimens from the same patient may be necessary to detect the virus. The possibility of a false negative result should be considered if the patient has clinical presentation or has had recent exposure. Basophil percentageon 2021 C. trachomatis DNA ANGELINE+probe Ql (Unsp spec) Negative Negative [facility] Work Phone: HIV 1 and HIV-2 antibody ass ay with HIV-1 p24 antigen detectionon 11-25-2021 HIV 1+2 Ab+HIV1 p24 Ag IA Ql Non-Reactive Nonreactive [facility] Work Phone: Neisseria gonorrhoeae detect ion by PCRon 11-25-2021 N. gonorrhoeae DNA ANGELINE+probe Ql (Cervical mucus) Negative Negative [facility] Work Phone: No Panel Informationon 11-25 Hepatitis B Surface Antibody Non-Reactive . [facility] Work Phone: Comment on above: Non Reactive: Incons istent with immunity, less than 10 mIU/mL Reactive: Consistent with immunity, greater than 9.9 mIU/mLVerified by repeat analysis Hepatitis C Antibody 0.1 s/co ratio 0.0-0.9 [facility] Work Phone: Hepatitis C Antibody Comment Comment . [facility] Work Phone: Comment on above: NegativeNot infected with HCV, unless recent infection issuspected or other evidence exists to indicate HCVinfection. Herpes Simplex Virus I IgG Antibody < 0.91 index 0.00-0.90 [facility] Work Phone: Comment on above: Negative <0.91 Equiv ocal 0.91 - 1.09 Positive >1.09 Note: Negative indicates no antibodies detected to HSV-1. Equivocal may suggest early infection. If clinically appropriate, retest at later date. Positive indicates antibodies detected to HSV-1. Serum Treponema species anti body detectionon 11-25-2021 Treponema sp Ab Ql (S) Non-Reactive [facility] Work Phone: Serum hepatitis B virus core antibody detectionon 11-25-2021 HBV core Ab Ql (S) Negative Negative [facility] Work Phone: Serum herpes simplex virus 2 antibody assay by immunoassay (units/volume)on 11-25-2021 HSV 2 Ab IA Qn (S) < 0.91 index 0.00-0.90 [facility] Work Phone: Comment on above: Negative <0.91 Equiv ocal 0.91 - 1.09 Positive >1.09 Note: Negative indicates no HSV-2 antibodies detected. Positive indicates HSV-2 antibodies detected. Equivocal and low positive HSV-2 screens (Index 0.91-5.00) may be false positive and are reflexed to supplemental testing in accordance with CDC guidelines.Performed at: [facility] [id number] Director: Carlos Roth PhD, Phone: [phone] Serum or plasma hepatitis B virus surface antigen detection by immunoassayon 11-25-2021 HBV surface Ag IA Ql Negative Negative [facility] Work Phone: Laboratory - Chemistry and C hemistry - challengeon 09-11-2021 Free T4 [Mass/Vol] 1.43 ng/dL 0.76-1.46 [facility] Work Phone: No Panel Informationon 09-11 Free Triiodothyronine (T3) pg/dL 2.7 pg/mL 2.18-3.98 [facility] Work Phone: Thyroid Stimulating Hormone (TSH) 0.33 uIU/mL 0.358-3.74 [facility] Work Phone: Clostridium difficile detect ion by polymerase chain reaction C. difficile DNA ANGELINE+probe Ql (Unsp spec) [facility] Work Phone: Lower GI hemoglobin IA Ql (S tl) Stool Occult Blood (RUFINA) Positive [facility] Work Phone: No Panel Information Enteric Bacteriology [facility] Work Phone: Stool Clostridium difficile detection C. difficile Ql (Stl) [facility] Work Phone: Stool lactoferrin detection by immunoassay Lactoferrin IA Ql (Stl) [facility] Work Phone: Vital Signs Date Time Vital Sign Value Performing Clinician Nasima arechiga 12-14-2024 15:07-0400 Diastolic blood pressure 62 mm[Hg] Dr. Milagros Andrew MD Work Phone: [facility] 12-14-2024 15:07-0400 Heart rate 67 /min Dr. Milagros Andrew MD Work Phone: [facility] 12-14-2024 15:07-0400 Systolic blood pressure 138 mm[Hg] Dr. Milagros Andrew MD Work Phone: [facility] 11-20-2024 16:20-0400 Diastolic blood pressure 82 mm[Hg] Dr. Milagros Andrew MD Work Phone: [facility] 11-20-2024 16:20-0400 Systolic blood pressure 162 mm[Hg] Dr. Milagros Andrew MD Work Phone: [facility] 11-20-2024 10:30-0400 Body height 154.[address] Milagros Andrew MD Work Phone: [facility] 11-20-2024 10:30-0400 Body mass index (BMI) [Ratio] 26.2 kg/m2 Dr. Milagros Andrew MD Work Phone: [facility] 11-20-2024 10:30-0400 Body temperature 97.4 [degF] Dr. Milagros Andrew MD Work Phone: [facility] 11-20-2024 10:30-0400 Body weight 63.[address] Milagros Andrew MD Work Phone: [facility] 11-20-2024 10:30-0400 Diastolic blood pressure 70 mm[Hg] Dr. Milagros Andrew MD Work Phone: [facility] 11-20-2024 10:30-0400 Heart rate 68 /min Dr. Milagros Andrew MD Work Phone: [facility] 11-20-2024 10:30-0400 Respiratory rate 16 /min Dr. Milagros Andrew MD Work Phone: [facility] 11-20-2024 10:30-0400 Systolic blood pressure 148 mm[Hg] Dr. Milagros Andrew MD Work Phone: [facility] 09-07-2024 10:27-0400 Body mass index (BMI) [Ratio] 25.9 kg/m2 Dr. Milagros Andrew MD Work Phone: [facility] 09-07-2024 10:27-0400 Body weight 62.[address] Milagros Andrew MD Work Phone: [facility] 09-07-2024 10:27-0400 Diastolic blood pressure 74 mm[Hg] Dr. Milagros Andrew MD Work Phone: [facility] 09-07-2024 10:27-0400 Heart rate 61 /min Dr. Milagros Andrew MD Work Phone: [facility] 09-07-2024 10:27-0400 SaO2% (BldA) [Mass fraction] 95 % Dr. Milagros Andrew MD Work Phone: [facility] 09-07-2024 10:27-0400 Systolic blood pressure 135 mm[Hg] Dr. Milagros Andrew MD Work Phone: [facility] 06-30-2024 13:18-0500 Body temperature 97.2 [degF] Dr. Milagros Andrew MD Work Phone: [facility] 06-30-2024 13:18-0500 Diastolic blood pressure 50 mm[Hg] Dr. Milagros Andrew MD Work Phone: [facility] 06-30-2024 13:18-0500 Heart rate 64 /min Dr. Milagros Andrew MD Work Phone: [facility] 06-30-2024 13:18-0500 Respiratory rate 16 /min Dr. Milagros Andrew MD Work Phone: [facility] 06-30-2024 13:18-0500 SaO2% (BldA) [Mass fraction] 96 % Dr. Milagros Andrew MD Work Phone: [facility] 06-30-2024 13:18-0500 Systolic blood pressure 139 mm[Hg] Dr. Milagros Andrew MD Work Phone: [facility] 06-30-2024 12:28-0500 Body height 154.[address] Milagros Andrew MD Work Phone: [facility] 06-30-2024 12:28-0500 Body mass index (BMI) [Ratio] 25.4 kg/m2 Dr. Milagros Andrew MD Work Phone: [facility] 06-30-2024 12:28-0500 Body weight 61.[address] Milagros Andrew MD Work Phone: [facility] 06-15-2023 14:57-0500 Body temperature 97.2 [degF] Dr. Milagros Andrew Work Phone: [facility] 06-15-2023 14:57-0500 Diastolic blood pressure 61 mm[Hg] Dr. Milagors Andrew Work Phone: [facility] 06-15-2023 14:57-0500 Heart rate 56 /min Dr. Milagros Andrew Work Phone: [facility] 06-15-2023 14:57-0500 Respiratory rate 16 /min Dr. Milagros Andrew Work Phone: [facility] 06-15-2023 14:57-0500 Systolic blood pressure 153 mm[Hg] Dr. Milagros Andrew Work Phone: [facility] 06-15-2023 14:05-0500 Body height 154.[address] Milagros Andrew Work Phone: [facility] 06-15-2023 14:05-0500 Body mass index (BMI) [Ratio] 23.6 kg/m2 Dr. Milagros Anrdew Work Phone: [facility] 06-15-2023 14:05-0500 Body weight 56.[address] Milagros Andrew Work Phone: [facility] 06-15-2023 14:05-0500 SaO2% (BldA) [Mass fraction] 97 % Dr. Milagros Andrew Work Phone: [facility] 05-06-2023 11:27-0500 Body height 154.[address] Milagros Andrew Work Phone: [facility] 05-06-2023 11:27-0500 Body mass index (BMI) [Ratio] 22.6 kg/m2 Dr. Milagros Andrew Work Phone: [facility] 05-06-2023 11:27-0500 Body temperature 98.7 [degF] Dr. Milagros Andrew Work Phone: [facility] 05-06-2023 11:27-0500 Body weight 54.[address] Milagros Andrew Work Phone: [facility] 05-06-2023 11:27-0500 Diastolic blood pressure 66 mm[Hg] Dr. Milagros Andrew Work Phone: [facility] 05-06-2023 11:27-0500 Heart rate 75 /min Dr. Milagros Andrew Work Phone: [facility] 05-06-2023 11:27-0500 SaO2% (BldA) [Mass fraction] 96 % Dr. Milagros Andrew Work Phone: [facility] [facility] 11:27-0500 Systolic blood pressure 153 mm[Hg] Dr. Milagros Andrew Work Phone: [facility] 04-14-2023 08:54-0500 Body mass index (BMI) [Ratio] 22.3 kg/m2 Dr. Milagros Andrew Work Phone: [facility] 04-14-2023 08:54-0500 Body temperature 97.1 [degF] Dr. Milagros Andrew Work Phone: [facility] 04-14-2023 08:54-0500 Body weight 53.[address] Milagros Andrew Work Phone: [facility] 04-14-2023 08:54-0500 Diastolic blood pressure 60 mm[Hg] Dr. Milagros Andrew Work Phone: [facility] 04-14-2023 08:54-0500 Heart rate 87 /min Dr. Milagros Andrew Work Phone: [facility] 04-14-2023 08:54-0500 Respiratory rate 16 /min Dr. Milagros Andrew Work Phone: [facility] 04-14-2023 08:54-0500 SaO2% (BldA) [Mass fraction] 98 % Dr. Milagros Andrew Work Phone: [facility] 04-14-2023 08:54-0500 Systolic blood pressure 118 mm[Hg] Dr. Milagros Andrew Work Phone: [facility] 01-25-2023 09:28-0400 Body height 154.[address] Milagros Andrew Work Phone: [facility] 01-25-2023 09:28-0400 Body mass index (BMI) [Ratio] 21.6 kg/m2 Dr. Milagros Andrew Work Phone: [facility] 01-25-2023 09:28-0400 Body temperature 98.4 [degF] Dr. Milagros Andrew Work Phone: [facility] 01-25-2023 09:28-0400 Body weight 51.[address] Milagros Andrew Work Phone: [facility] 01-25-2023 09:28-0400 Diastolic blood pressure 68 mm[Hg] Dr. Milagros Andrew Work Phone: [facility] 01-25-2023 09:28-0400 Heart rate 82 /min Dr. Milagros Andrew Work Phone: [facility] 01-25-2023 09:28-0400 Respiratory rate 18 /min Dr. Milagros Andrew Work Phone: [facility] 01-25-2023 09:28-0400 SaO2% (BldA) [Mass fraction] 97 % Dr. Milagros Andrew Work Phone: [facility] 01-25-2023 09:28-0400 Systolic blood pressure 170 mm[Hg] Dr. Milagros Andrew Work Phone: [facility] 01-18-2023 14:28-0400 Body mass index (BMI) [Ratio] 21.9 kg/m2 Dr. Milagros Andrew Work Phone: [facility] 01-18-2023 14:28-0400 Body temperature 95 [degF] Dr. Milargos Andrew Work Phone: [facility] 01-18-2023 14:28-0400 Body weight 52.[address] Milagros Andrew Work Phone: [facility] 01-18-2023 14:28-0400 Diastolic blood pressure 56 mm[Hg] Dr. Milagros Andrew Work Phone: [facility] 01-18-2023 14:28-0400 Heart rate 93 /min Dr. Milagros Andrew Work Phone: [facility] 01-18-2023 14:28-0400 Respiratory rate 18 /min Dr. Milagros Andrew Work Phone: [facility] 01-18-2023 14:28-0400 SaO2% (BldA) [Mass fraction] 97 % Dr. Milagros Andrew Work Phone: [facility] 01-18-2023 14:28-0400 Systolic blood pressure 146 mm[Hg] Dr. Milagros Andrew Work Phone: [facility] 01-06-2023 07:30-0400 Body height 154.[address] Milagros Andrew Work Phone: [facility] 01-06-2023 07:30-0400 Body mass index (BMI) [Ratio] 22.1 kg/m2 Dr. Milagros Andrew Work Phone: [facility] 01-06-2023 07:30-0400 Body temperature 97 [degF] Dr. Milagros Andrew Work Phone: [facility] 01-06-2023 07:30-0400 Body weight 53.[address] Milagros Andrew Work Phone: [facility] 01-06-2023 07:30-0400 Diastolic blood pressure 58 mm[Hg] Dr. Milagros Andrew Work Phone: [facility] 01-06-2023 07:30-0400 Heart rate 101 /min Dr. Milagros Andrew Work Phone: [facility] 01-06-2023 07:30-0400 Respiratory rate 16 /min Dr. Milagros Andrew Work Phone: [facility] 01-06-2023 07:30-0400 SaO2% (BldA) [Mass fraction] 97 % Dr. Milagros Andrew Work Phone: [facility] 01-06-2023 07:30-0400 Systolic blood pressure 126 mm[Hg] Dr. Milagros Andrew Work Phone: [facility] 12-29-2022 17:48-0400 Body temperature 98 [degF] Dr. Milagros Andrew Work Phone: [facility] 12-29-2022 17:48-0400 Diastolic blood pressure 46 mm[Hg] Dr. Milagros Andrew Work Phone: [facility] 12-29-2022 17:48-0400 Heart rate 82 /min Dr. Milagros Andrew Work Phone: [facility] 12-29-2022 17:48-0400 Respiratory rate 15 /min Dr. Milagros Andrew Work Phone: [facility] 12-29-2022 17:48-0400 SaO2% (BldA) [Mass fraction] 98 % Dr. Milagros Andrew Work Phone: [facility] 12-29-2022 17:48-0400 Systolic blood pressure 155 mm[Hg] Dr. Milagros Andrew Work Phone: [facility] 12-28-2022 17:40-0400 Inhaled oxygen flow rate 2 L/min Dr. Milagros Andrew Work Phone: [facility] 12-26-2022 10:48-0400 Body mass index (BMI) [Ratio] 22.9 kg/m2 Dr. Milagros Andrew Work Phone: [facility] 12-26-2022 10:48-0400 Body weight 55.[address] Milagros Andrew Work Phone: [facility] 12-10-2022 09:51-0400 Body height 154.[address] Milagros Andrew Work Phone: [facility] 12-10-2022 09:51-0400 Body mass index (BMI) [Ratio] 23.8 kg/m2 Dr. Milagros Andrew Work Phone: [facility] 12-10-2022 09:51-0400 Body temperature 98.4 [degF] Dr. Milagros Andrew Work Phone: [facility] 12-10-2022 09:51-0400 Body weight 57.[address] Milagros Andrew Work Phone: [facility] 12-10-2022 09:51-0400 Diastolic blood pressure 64 mm[Hg] Dr. Milagros Andrew Work Phone: [facility] 12-10-2022 09:51-0400 Heart rate 103 /min Dr. Milagros Andrew Work Phone: [facility] 12-10-2022 09:51-0400 Respiratory rate 18 /min Dr. Milagros Andrew Work Phone: [facility] 12-10-2022 09:51-0400 SaO2% (BldA) [Mass fraction] 97 % Dr. Milagros Andrew Work Phone: [facility] 12-10-2022 09:51-0400 Systolic blood pressure 120 mm[Hg] Dr. Milagros Andrew Work Phone: [facility] 11-16-2022 11:25-0400 Body mass index (BMI) [Ratio] 24.1 kg/m2 Dr. Milagros Andrew Work Phone: [facility] 11-16-2022 11:25-0400 Body weight 58.[address] Milagros Andrew Work Phone: [facility] 11-16-2022 11:25-0400 Diastolic blood pressure 63 mm[Hg] Dr. Milagros Andrew Work Phone: [facility] 11-16-2022 11:25-0400 Heart rate 76 /min Dr. Milagros Andrew Work Phone: [facility] 11-16-2022 11:25-0400 Respiratory rate 18 /min Dr. Milagros Andrew Work Phone: [facility] 11-16-2022 11:25-0400 SaO2% (BldA) [Mass fraction] 96 % Dr. Milagros Andrew Work Phone: [facility] 11-16-2022 11:25-0400 Systolic blood pressure 135 mm[Hg] Dr. Milagros Andrew Work Phone: [facility] 10-12-2022 08:59-0400 Body mass index (BMI) [Ratio] 24.1 kg/m2 Dr. Milagros Andrew Work Phone: [facility] 10-12-2022 08:59-0400 Body temperature 98.2 [degF] Dr. Milagros Andrew Work Phone: [facility] 10-12-2022 08:59-0400 Body weight 58.[address] Milagros Andrew Work Phone: [facility] 10-12-2022 08:59-0400 Diastolic blood pressure 70 mm[Hg] Dr. Milagros Andrew Work Phone: [facility] 10-12-2022 08:59-0400 Heart rate 70 /min Dr. Milagros Andrew Work Phone: [facility] 10-12-2022 08:59-0400 Respiratory rate 16 /min Dr. Milagros Andrew Work Phone: [facility] 10-12-2022 08:59-0400 SaO2% (BldA) [Mass fraction] 97 % Dr. Milagros Andrew Work Phone: [facility] 10-12-2022 08:59-0400 Systolic blood pressure 140 mm[Hg] Dr. Milagros Andrew Work Phone: [facility] 07-02-2022 10:10-0500 Body height 156.[address] Laura Boswell Work Phone: [facility] 07-02-2022 10:10-0500 Body mass index (BMI) [Ratio] 23 kg/m2 Dr. Laura Boswell Work Phone: [facility] 07-02-2022 10:10-0500 Body temperature 97.5 [degF] Dr. Laura Boswell Work Phone: [facility] 07-02-2022 10:10-0500 Body weight 56.[address] Laura Boswell Work Phone: [facility] 07-02-2022 10:10-0500 Diastolic blood pressure 66 mm[Hg] Dr. Laura Boswell Work Phone: [facility] 07-02-2022 10:10-0500 Heart rate 55 /min Dr. Laura Boswell Work Phone: [facility] 07-02-2022 10:10-0500 Respiratory rate 14 /min Dr. Laura Boswell Work Phone: [facility] 07-02-2022 10:10-0500 SaO2% (BldA) [Mass fraction] 97 % Dr. Laura Boswell Work Phone: [facility] 07-02-2022 10:10-0500 Systolic blood pressure 128 mm[Hg] Dr. Laura Boswell Work Phone: [facility] 05-21-2022 10:31-0500 Body height 156.[address] Laura Boswell Work Phone: [facility] Work Phone: 05-21-2022 10:31-0500 Body mass index (BMI) [Ratio] 21.7 kg/m2 Dr. Laura Boswell Work Phone: [facility] 05-21-2022 10:31-0500 Body temperature 97.3 [degF] Dr. Laura Boswell Work Phone: [facility] 05-21-2022 10:31-0500 Body weight 53.[address] Laura Boswell Work Phone: [facility] 05-21-2022 10:31-0500 Diastolic blood pressure 80 mm[Hg] Dr. Laura Boswell Work Phone: [facility] 05-21-2022 10:31-0500 Heart rate 70 /min Dr. Laura Boswell Work Phone: [facility] 05-21-2022 10:31-0500 Respiratory rate 14 /min Dr. Laura Boswell Work Phone: [facility] 05-21-2022 10:31-0500 SaO2% (BldA) [Mass fraction] 97 % Dr. Laura Boswell Work Phone: [facility] 05-21-2022 10:31-0500 Systolic blood pressure 134 mm[Hg] Dr. Laura Boswell Work Phone: [facility] 03-31-2022 09:59-0400 Body mass index (BMI) [Ratio] 21.7 kg/m2 Dr. Laura Boswell Work Phone: [facility] 03-31-2022 09:59-0400 Body temperature 96.3 [degF] Dr. Laura Boswell Work Phone: [facility] 03-31-2022 09:59-0400 Body weight 53.[address] Laura Boswell Work Phone: [facility] 03-31-2022 09:59-0400 Diastolic blood pressure 70 mm[Hg] Dr. Laura Boswell Work Phone: [facility] 03-31-2022 09:59-0400 Heart rate 72 /min Dr. Laura Boswell Work Phone: [facility] 03-31-2022 09:59-0400 Respiratory rate 16 /min Dr. Laura Boswell Work Phone: [facility] 03-31-2022 09:59-0400 SaO2% (BldA) [Mass fraction] 97 % Dr. Laura Boswell Work Phone: [facility] 03-31-2022 09:59-0400 Systolic blood pressure 108 mm[Hg] Dr. Laura Boswell Work Phone: [facility] 01-30-2022 15:27-0400 Body height 156.[address] Laura Boswell Work Phone: [facility] Work Phone: 01-30-2022 15:27-0400 Body mass index (BMI) [Ratio] 21.9 kg/m2 Dr. Laura Boswell Work Phone: [facility] Work Phone: 01-30-2022 15:27-0400 Body temperature 98.6 [degF] Dr. Laura Boswell Work Phone: [facility] Work Phone: 01-30-2022 15:27-0400 Body weight 53.[address] Laura Boswell Work Phone: [facility] Work Phone: 01-30-2022 15:27-0400 Diastolic blood pressure 70 mm[Hg] Dr. Laura Boswell Work Phone: [facility] Work Phone: 01-30-2022 15:27-0400 Heart rate 81 /min Dr. Laura Boswell Work Phone: [facility] Work Phone: 01-30-2022 15:27-0400 Respiratory rate 16 /min Dr. Laura Boswell Work Phone: [facility] Work Phone: 01-30-2022 15:27-0400 SaO2% (BldA) [Mass fraction] 97 % Dr. Laura Boswell Work Phone: [facility] Work Phone: 01-30-2022 15:27-0400 Systolic blood pressure 126 mm[Hg] Dr. Laura Boswell Work Phone: [facility] Work Phone: 01-23-2022 10:42-0400 Body mass index (BMI) [Ratio] 22.1 kg/m2 Dr. Laura Boswell Work Phone: [facility] Work Phone: 01-23-2022 10:42-0400 Body temperature 97.3 [degF] Dr. Laura Boswell Work Phone: [facility] Work Phone: 01-23-2022 10:42-0400 Body weight 53.[address] Laura Boswell Work Phone: [facility] Work Phone: 01-23-2022 10:42-0400 Diastolic blood pressure 84 mm[Hg] Dr. Laura Boswell Work Phone: [facility] Work Phone: 01-23-2022 10:42-0400 Heart rate 68 /min Dr. Laura Boswell Work Phone: [facility] Work Phone: 01-23-2022 10:42-0400 Respiratory rate 16 /min Dr. Laura Boswell Work Phone: [facility] Work Phone: 01-23-2022 10:42-0400 SaO2% (BldA) [Mass fraction] 99 % Dr. Laura Boswell Work Phone: [facility] Work Phone: 01-23-2022 10:42-0400 Systolic blood pressure 118 mm[Hg] Dr. Laura Boswell Work Phone: [facility] Work Phone: 12-17-2021 11:32-0400 Body mass index (BMI) [Ratio] 22.1 kg/m2 Dr. Laura Boswell Work Phone: [facility] Work Phone: 12-17-2021 11:32-0400 Body temperature 97.2 [degF] Dr. Laura Boswell Work Phone: [facility] Work Phone: 12-17-2021 11:32-0400 Body weight 53.[address] Laura Boswell Work Phone: [facility] Work Phone: 12-17-2021 11:32-0400 Diastolic blood pressure 72 mm[Hg] Dr. Laura Boswell Work Phone: [facility] Work Phone: 12-17-2021 11:32-0400 Heart rate 64 /min Dr. Laura Boswell Work Phone: [facility] Work Phone: 12-17-2021 11:32-0400 Respiratory rate 18 /min Dr. Laura Boswell Work Phone: [facility] Work Phone: 12-17-2021 11:32-0400 SaO2% (BldA) [Mass fraction] 98 % Dr. Laura Boswell Work Phone: [facility] Work Phone: 12-17-2021 11:32-0400 Systolic blood pressure 140 mm[Hg] Dr. Laura Boswell Work Phone: [facility] Work Phone: 11-25-2021 09:53-0400 Body height 154.[address] Laura Boswell Work Phone: [facility] Work Phone: 11-25-2021 09:53-0400 Body mass index (BMI) [Ratio] 21.9 kg/m2 Dr. Laura Boswell Work Phone: [facility] Work Phone: 11-25-2021 09:53-0400 Body temperature 97.4 [degF] Dr. Laura Boswell Work Phone: [facility] Work Phone: 11-25-2021 09:53-0400 Body weight 52.[address] Laura Boswell Work Phone: [facility] Work Phone: 11-25-2021 09:53-0400 Diastolic blood pressure 78 mm[Hg] Dr. Laura Boswell Work Phone: [facility] Work Phone: 11-25-2021 09:53-0400 Heart rate 68 /min Dr. Laura Boswell Work Phone: [facility] Work Phone: 11-25-2021 09:53-0400 Respiratory rate 14 /min Dr. Laura Boswell Work Phone: [facility] Work Phone: 11-25-2021 09:53-0400 SaO2% (BldA) [Mass fraction] 98 % Dr. Laura Boswell Work Phone: [facility] Work Phone: 11-25-2021 09:53-0400 Systolic blood pressure 132 mm[Hg] Dr. Laura Boswell Work Phone: [facility] Work Phone: 11-13-2021 11:41-0400 Body height 154.[address] Laura Boswell Work Phone: [facility] Work Phone: 11-13-2021 11:41-0400 Body mass index (BMI) [Ratio] 21.7 kg/m2 Dr. Laura Boswell Work Phone: [facility] Work Phone: 11-13-2021 11:41-0400 Body weight 52.[address] Laura Boswell Work Phone: [facility] Work Phone: 11-13-2021 11:41-0400 Diastolic blood pressure 70 mm[Hg] Dr. Laura Boswell Work Phone: [facility] Work Phone: 11-13-2021 11:41-0400 Heart rate 76 /min Dr. Laura Boswell Work Phone: [facility] Work Phone: 11-13-2021 11:41-0400 Respiratory rate 16 /min Dr. Laura Boswell Work Phone: [facility] Work Phone: 11-13-2021 11:41-0400 Systolic blood pressure 160 mm[Hg] Dr. Laura Boswell Work Phone: [facility] Work Phone: 09-11-2021 10:27-0400 Body mass index (BMI) [Ratio] 21 kg/m2 Dr. Laura Boswell Work Phone: [facility] Work Phone: 09-11-2021 10:27-0400 Body temperature 98 [degF] Dr. Laura Boswell Work Phone: [facility] Work Phone: 09-11-2021 10:27-0400 Body weight 52.[address] Laura Boswell Work Phone: [facility] Work Phone: 09-11-2021 10:27-0400 Diastolic blood pressure 80 mm[Hg] Dr. Laura Boswell Work Phone: [facility] Work Phone: 09-11-2021 10:27-0400 Heart rate 73 /min Dr. Laura Boswell Work Phone: [facility] Work Phone: 09-11-2021 10:27-0400 Respiratory rate 14 /min Dr. Laura Boswell Work Phone: [facility] Work Phone: 09-11-2021 10:27-0400 SaO2% (BldA) [Mass fraction] 95 % Dr. Laura Boswell Work Phone: [facility] Work Phone: 09-11-2021 10:27-0400 Systolic blood pressure 152 mm[Hg] Dr. Laura Boswell Work Phone: [facility] Work Phone: 09-11-2021 10:27-0400 Body height 157.[address] Laura Boswell Work Phone: [facility] Work Phone: 09-11-2021 10:27-0400 Body mass index (BMI) [Ratio] 21 kg/m2 Dr. Laura Boswell Work Phone: [facility] Work Phone: 09-11-2021 10:27-0400 Body temperature 98 [degF] Dr. Laura Boswell Work Phone: [facility] Work Phone: 09-11-2021 10:27-0400 Body weight 52.[address] Laura Boswell Work Phone: [facility] Work Phone: 09-11-2021 10:27-0400 Diastolic blood pressure 80 mm[Hg] Dr. Laura Boswell Work Phone: [facility] Work Phone: 09-11-2021 10:27-0400 Heart rate 73 /min Dr. Laura Boswell Work Phone: [facility] Work Phone: 09-11-2021 10:27-0400 Respiratory rate 14 /min Dr. Laura Boswell Work Phone: [facility] Work Phone: 09-11-2021 10:27-0400 SaO2% (BldA) [Mass fraction] 95 % Dr. Laura Boswell Work Phone: [facility] Work Phone: 09-11-2021 10:27-0400 Systolic blood pressure 152 mm[Hg] Dr. Laura Boswell Work Phone: [facility] Work Phone: 06-19-2021 10:03-0500 Body mass index (BMI) [Ratio] 20.8 kg/m2 Dr. Laura Boswell Work Phone: [facility] Work Phone: 06-19-2021 10:03-0500 Body temperature 98.3 [degF] Dr. Laura Boswell Work Phone: [facility] Work Phone: 06-19-2021 10:03-0500 Body weight 51.[address] Laura Boswell Work Phone: [facility] Work Phone: 06-19-2021 10:03-0500 Diastolic blood pressure 78 mm[Hg] Dr. Laura Boswell Work Phone: [facility] Work Phone: 06-19-2021 10:03-0500 Heart rate 89 /min Dr. Laura Boswell Work Phone: [facility] Work Phone: 06-19-2021 10:03-0500 Respiratory rate 14 /min Dr. Laura Boswell Work Phone: [facility] Work Phone: 06-19-2021 10:03-0500 SaO2% (BldA) [Mass fraction] 98 % Dr. Laura Boswell Work Phone: [facility] Work Phone: 06-19-2021 10:03-0500 Systolic blood pressure 148 mm[Hg] Dr. Laura Boswell Work Phone: [facility] Work Phone: 05-29-2021 10:00-0500 Body mass index (BMI) [Ratio] 20.8 kg/m2 Dr. Laura Boswell Work Phone: [facility] Work Phone: 05-29-2021 10:00-0500 Body temperature 97.6 [degF] Dr. Laura Boswell Work Phone: [facility] Work Phone: 05-29-2021 10:00-0500 Body weight 51.[address] Laura Boswell Work Phone: [facility] Work Phone: 05-29-2021 10:00-0500 Diastolic blood pressure 80 mm[Hg] Dr. Laura Boswell Work Phone: [facility] Work Phone: 05-29-2021 10:00-0500 Heart rate 80 /min Dr. Laura Boswell Work Phone: [facility] Work Phone: 05-29-2021 10:00-0500 Respiratory rate 16 /min Dr. Laura Boswell Work Phone: [facility] Work Phone: 05-29-2021 10:00-0500 SaO2% (BldA) [Mass fraction] 97 % Dr. Laura Boswell Work Phone: [facility] Work Phone: 05-29-2021 10:00-0500 Systolic blood pressure 186 mm[Hg] Dr. Laura Boswell Work Phone: [facility] Work Phone: 05-15-2021 08:58-0500 Body mass index (BMI) [Ratio] 21 kg/m2 Dr. Laura Boswell Work Phone: [facility] Work Phone: 05-15-2021 08:58-0500 Body temperature 97 [degF] Dr. Laura Boswell Work Phone: [facility] Work Phone: 05-15-2021 08:58-0500 Body weight 52.[address] Laura Boswell Work Phone: [facility] Work Phone: 05-15-2021 08:58-0500 Diastolic blood pressure 70 mm[Hg] Dr. Laura Boswell Work Phone: [facility] Work Phone: 05-15-2021 08:58-0500 Heart rate 77 /min Dr. Laura Boswell Work Phone: [facility] Work Phone: 05-15-2021 08:58-0500 Respiratory rate 16 /min Dr. Laura Boswell Work Phone: [facility] Work Phone: 05-15-2021 08:58-0500 SaO2% (BldA) [Mass fraction] 98 % Dr. Laura Boswell Work Phone: [facility] Work Phone: 05-15-2021 08:58-0500 Systolic blood pressure 130 mm[Hg] Dr. Laura Boswell Work Phone: [facility] Work Phone: Encounters Encounter Date Encounter Type Care Provider Facility Start: 12-14-2024 End: 12-14-2024 Patient encounter procedure [facility] -[facility] Work Phone: Start: 12-14-2024 End: 12-14-[address] Milagros Andrew MD Work Phone: -[facility] Start: 11-20-2024 End: 11-20-[address] Milagros Andrew MD Work Phone: [facility] Work Phone: Start: 11-20-2024 End: 11-20-[address] Milagros Andrew MD -[facility] Start: 11-20-2024 End: 11-20-[address] Milagros Andrew MD -[facility] Work Phone: Start: 11-20-2024 End: 11-20-[address] Milagros Andrew MD Work Phone: [facility] Work Phone: Start: 11-20-2024 End: 11-20-2024 ambulatory Milagros Andrew Facility:[facility] Start: 09-07-2024 End: 09-07-2024 Patient encounter procedure Dr. Chencho Dupree MD -[facility] Work Phone: Start: 09-07-2024 End: 09-07-2024 ambulatory Milagros Andrew Facility:[facility] [place] Start: 08-30-2024 End: 08-30-[address] Milagros Andrew MD Work Phone: [facility] Work Phone: Start: 08-30-2024 End: 08-30-[address] Chencho Dupree MD -Laboratory Work Phone: Start: 08-30-2024 End: 08-30-2024 ambulatory Milagros Andrew Facility:[facility] Start: 08-11-2024 End: 08-11-[address] Milagros Andrew MD Work Phone: [facility] Work Phone: Start: 08-11-2024 End: 08-11-[address] Kellie Martinez MD -[facility] Work Phone: Start: 08-11-2024 End: 08-11-2024 ambulatory Milagros Andrew Facility:[facility] Start: 08-09-2024 End: 08-09-[address] Milagros Andrew MD Work Phone: [facility] Work Phone: Start: 08-09-2024 End: 08-09-[address] Kellie Martinez MD -Outpatient Breast Imaging Work Phone: Start: 08-09-2024 End: 08-09-2024 ambulatory Milagros Andrew Facility:[facility] Start: 06-30-2024 End: 06-30-[address] Chencho Dupree MD -Medical Out Work Phone: Start: 06-30-2024 End: 06-30-2024 ambulatory Chencho Dupree Facility:[facility] Start: 03-09-2024 End: 03-09-2024 ambulatory Milagros Andrew Facility:[facility] [place] Start: 03-02-2024 End: 03-02-2024 ambulatory Chencho Dupree Facility:[facility] Start: 07-22-2023 End: 07-22-[address] Milagros Andrew Work Phone: [facility] Work Phone: Start: 07-22-2023 End: 07-22-[address] Milagros Andrew Work Phone: [facility]-Outpatient Breast Imaging Work Phone: Start: 07-12-2023 End: 07-12-[address] Milagros Andrew Work Phone: [facility] Work Phone: Start: 07-12-2023 End: 07-12-[address] Milagros Andrew Work Phone: [facility]-Laboratory Work Phone: Start: 06-15-2023 End: 06-15-[address] Milagros Andrew Work Phone: [facility] Work Phone: Start: 06-15-2023 End: 06-15-[address] Milagros Andrew Work Phone: [facility]-Medical Out Work Phone: Start: 05-22-2023 End: 05-22-[address] Milagros Andrew Work Phone: [facility] Work Phone: Start: 05-22-2023 End: 05-22-[address] Milagros Andrew Work Phone: [facility]-Laboratory Work Phone: Start: 05-06-2023 End: 05-06-[address] Milagros Andrew Work Phone: [facility] Work Phone: Start: 05-03-2023 End: 05-03-[address] Milagros Andrew Work Phone: [facility] Work Phone: Start: 05-03-2023 End: 05-03-[address] Milagros Andrew Work Phone: [facility]-Laboratory Work Phone: Start: 04-14-2023 End: 04-14-2023 Encounter for examination of ears and hearing without abnormal findings Dr. Milagros Andrew Work Phone: [facility] Start: 04-14-2023 End: 04-14-[address] Milagros Andrew Work Phone: [facility] Work Phone: Start: 04-08-2023 End: 04-08-[address] Milagros Andrew Work Phone: [facility] Work Phone: Start: 04-08-2023 End: 04-08-[address] [facility] Start: 03-09-2023 End: 03-09-[address] [facility] Start: 02-15-2023 End: 02-15-[address] Milagros Andrew Work Phone: [facility] Work Phone: Start: 02-15-2023 End: 02-15-[address] [facility]agros [facility] Start: 01-25-2023 End: 01-25-[address] Milagros Andrew Work Phone: [facility] Work Phone: Start: 01-22-2023 End: 01-22-[address] Milagros Andrew Work Phone: [facility] Work Phone: Start: 01-22-2023 End: 01-22-[address] Milagros Andrew Work Phone: [facility]-Laboratory, [facility] Start: 01-21-2023 End: 01-21-[address] Milagros Andrew Work Phone: [facility] Work Phone: Start: 01-21-2023 End: 01-21-[address] [facility]agros Andrew [facility] Start: 01-21-2023 End: 01-21-[address] Milagros Andrew Work Phone: [facility] Work Phone: Start: 01-06-2023 End: 01-06-[address] Milagros Andrew Work Phone: [facility] Work Phone: Start: 01-06-2023 End: 01-06-[address] Milagros Andrew Work Phone: [facility]-Laboratory, [facility] Start: 01-06-2023 End: 01-06-[address] Milagros Andrew Work Phone: [facility] Work Phone: Start: 12-29-2022 Non-patient / Non-visit Dr. Siegel Work Phone: [facility] Start: 12-29-2022 Non-patient / Non-visit Dr. Siegel Work Phone: [facility] Work Phone: Start: 12-28-2022 Non-patient / Non-visit Dr. Siegel Work Phone: [facility] Start: 12-27-2022 Non-patient / Non-visit Dr. Siegel Work Phone: [facility] Start: 12-27-2022 Non-patient / Non-visit Dr. Siegel Work Phone: [facility] Work Phone: Start: 12-26-2022 Non-patient / Non-visit Dr. Siegel Work Phone: [facility] Work Phone: Start: 12-26-2022 Non-patient / Non-[facility] Start: 12-26-2022 End: 12-29-2022 Evaluation and management of inpatient Dr. Milagros Andrew Work Phone: [facility]-Progressive Care Unit Work Phone: Start: 12-10-2022 End: 12-10-[address] Milagros Andrew Work Phone: [facility] Start: 12-10-2022 End: 12-10-[address] Milagros Andrew Work Phone: [facility] Work Phone: Start: 12-10-2022 End: 12-10-[address] Milagros Andrew Work Phone: [facility] Work Phone: Start: 11-16-2022 End: 11-16-[address] Milagros Andrew Work Phone: [facility] Work Phone: Start: 10-12-2022 End: 10-12-[address] Milagros Andrew Work Phone: [facility] Work Phone: Start: 07-20-2022 End: 07-20-2022 ambulatory [facility] Work Phone: Start: 07-20-2022 End: 07-20-2022 Patient encounter procedure [facility]-Outpatient Breast Imaging Start: 07-02-2022 End: 07-02-[address] Laura Boswell Work Phone: [facility] Work Phone: Start: 07-02-2022 End: 07-02-2022 Encounter for general adult medical examination without abnormal findings Dr. Laura Boswell Work Phone: [facility] Start: 07-02-2022 End: 07-02-[address] Laura Boswell Work Phone: [facility] Internal [facility] Start: 05-21-2022 End: 05-21-[address] Laura Boswell Work Phone: [facility] Work Phone: Start: 05-21-2022 End: 05-21-[address] Laura Boswell Work Phone: [facility]-Laboratory, Specimen Start: 05-20-2022 End: 05-20-[address] Laura Boswell Work Phone: [facility] Work Phone: Start: 05-20-2022 End: 05-20-[address] Laura Boswell Work Phone: [facility]-Outpatient Bone Densitometry Start: 03-31-2022 End: 03-31-[address] Laura Boswell Work Phone: [facility] Internal [facility] Start: 03-13-2022 End: 03-13-[address] Laura Boswell Work Phone: [facility]-Laboratory, Specimen Start: 02-02-2022 End: 02-02-[address] Laura Boswell Work Phone: [facility] Work Phone: Start: 02-02-2022 End: 02-02-[address] Laura Boswell Work Phone: [facility]-Laboratory, Specimen Start: 01-30-2022 End: 01-30-[address] Laura Boswell Work Phone: [facility] Work Phone: Start: 01-30-2022 End: 01-30-[address] Laura Boswell Work Phone: [facility] Internal Medicine Start: 01-23-2022 End: 01-23-[address] Laura Boswell Work Phone: [facility] Internal Medicine Start: 12-17-2021 End: 12-17-[address] Laura Boswell Work Phone: [facility] Start: 11-25-2021 End: 11-25-[address] Laura Boswell Work Phone: [facility] Internal Medicine Start: 11-24-2021 End: 11-24-[address] Laura Boswell Work Phone: [facility]-Pulmonary Services/Neurology Start: 11-21-2021 Non-patient / Non-visit Dr. Shahrzad Boswell Work Phone: [facility] Start: 11-21-2021 End: 11-21-[address] Laura Boswell Work Phone: [facility]-Cardiovascular Services Start: 11-13-2021 End: 11-13-[address] Laura Boswell Work Phone: [facility] Start: 10-28-2021 Non-patient / Non-visit Dr. Shahrzad Boswell Work Phone: [facility] Start: 09-11-2021 End: 09-11-[address] Laura Boswell Work Phone: [facility] Internal Medicine Start: 09-03-2021 Non-patient / Non-visit Dr. Shahrzad Boswell Work Phone: [facility] Start: 09-03-2021 End: 09-03-[address] Laura Boswell Work Phone: [facility]-Cardiovascular Services Start: 08-05-2021 End: 08-05-[address] Laura Boswell Work Phone: [facility]-Pulmonary Services/Neurology Start: 08-05-2021 Non-patient / Non-visit Dr. Shahrzad Boswell Work Phone: [facility] Start: 07-16-2021 End: 07-16-[address] Laura Boswell Work Phone: [facility]-Outpatient Breast Imaging Start: 06-19-2021 End: 06-19-[address] Laura Boswell Work Phone: [facility] Internal Medicine Start: 05-29-2021 End: 05-29-[address] Laura Boswell Work Phone: [facility] Medicine Start: 05-15-2021 End: 05-15-[address] Laura Boswell Work Phone: [facility] Internal Medicine Procedures Date Procedure Procedure Detail Performing Clinician Start: 11-20-2024 Vitamin D, 25-hydrox y measurement Dr. Milagros Andrew MD Work Phone: Comment on above: Vitamin D StatusDefi ciency: <20 ng/mL (50nmol/L)Insufficiency: 20-30 ng/mL (50-75 nmol/L)Sufficiency: 30-100 ng/mL (75-250 nmol/L)Toxicity: >100 ng/mL (>250 nmol/L) Start: 08-11-[address] Milagros Andrew MD Work Phone: Start: 08-09-2024 Screening mammography Krysten Andrew MD Work Phone: Start: 07-22-2023 Screening mammography Krysten Andrew Work Phone: Start: 12-27-[address] Milagros Andrew Work Phone: Start: 12-26-2022 Bacteria identified in Blood by Culture Dr. Milagros Andrew Work Phone: Start: 12-26-2022 Measurement of occul t blood in stool specimen using immunoassay Dr. Milagros Andrew Work Phone: Start: 12-26-[address] Mervat Andrew Work Phone: Start: 12-26-2022 Plain chest X-ray Dr. Cristina Andrew Work Phone: Start: 12-10-2022 Diagnostic radiograp hy of abdomen, decubitus and erect Dr. Milagros Andrew Work Phone: Start: 07-20-2022 Screening mammography P A Cassandra Rondontavon Start: 05-20-2022 Dual energy X-ray absorptiometry Dr. Laura Boswell Work Phone: Start: 07-16-2021 Screening mammography Krysten Boswell Work Phone: Clostridium difficil e detection Dr. Laura Boswell Work Phone: Enteric Bacteriology Dr. Lorena Boswell Work Phone: H/O: hysterectomy History of hysterectomy Dr. Laura Boswell Work Phone: Comment on above: 2004 for fibroids Lactoferrin measurement Dr. Laura Boswell Work Phone: Measurement of occul t blood in stool specimen using immunoassay Dr. Laura Boswell Work Phone: Plan of Treatment Date Care Activity Detail Author Start: 11-20-2024 Complete blood count [facility] Start: 11-20-2024 Comprehensive metabolic 2000 panel - Serum or Plasma [facility] Start: 11-20-2024 Vitamin D, 25-hydroxy measurement [facility] Start: 06-30-2024 Iv infusion therapy/prophylaxis /dx 1st to 1 hr THER/PROPH/DIAG IV INF INIT [facility] Start: 06-15-2023 Iv infusion therapy/prophylaxis /dx 1st to [facility] Start: 04-14-2023 Patient referral [facility] Work Phone: Start: 01-22-2023 Thyroperoxidase Ab [Units/volume] in Serum or Plasma [facility] Start: 01-21-2023 Patient referral [facility] Work Phone: Start: 12-29-2022 Patient discharge [facility] Start: 12-27-2022 Referral to general surgeon [facility] Start: 12-26-2022 Colonoscopy flx dx w/collj spec when pfrmd DIAGNOSTIC COLONOSCOPY [facility] Start: 12-26-2022 Esophagogastroduodenoscopy transoral diagnostic EGD DIAGNOSTIC BRUSH WASH [facility] Start: 12-26-2022 Ambulation without limitation [facility] Start: 12-26-2022 Assessment of risk of venous thromboembolism [facility] Start: 12-26-2022 Insertion of catheter into peripheral vein [facility] Start: 12-26-2022 Measuring intake and output [facility] Start: 12-26-2022 Providing care according to standard [facility] Start: 12-26-2022 [facility] Start: 12-26-2022 Following clinical pathway protocol [facility] Start: 12-26-2022 Admission procedure [facility] Start: 11-25-2021 [facility] Work Phone: Alanine aminotransfe rase [Enzymatic activity/volume] in Serum or Plasma [facility] Albumin [Mass/volume ] in Serum or Plasma [facility] Alkaline phosphatase [Enzymatic activity/volume] in Serum or Plasma [facility] Anion gap in Serum or Plasma [facility] Bilirubin, total measurement [facility] BUN/Creatinine ratio [facility] Calcium [Mass/volume ] in Serum or Plasma [facility] Carbon dioxide, tota l [Moles/volume] in Central venous blood [facility] Comprehensive metabo lic 2000 panel - Serum or Plasma [facility] Creatinine [Mass/vol ume] in Serum or Plasma [facility] Erythrocyte mean cor puscular volume determination [facility] Glucose [Mass/volume ] in Serum or Plasma [facility] Hematocrit [Volume F raction] of Blood [facility] Hemoglobin [Mass/volume] in Blood [facility] Hepatitis B surface antigen measurement [facility] Work Phone: Hepatitis B virus co re Ab [Presence] in Serum [facility] Work Phone: Hepatitis B virus valentin rface Ab [Units/volume] in Serum by Radioimmunoassay (MABEL) [facility] Work Phone: Leukocytes [#/volume] in Blood [facility] Mean corpuscular hem oglobin concentration determination [facility] Mean corpuscular hem oglobin determination [facility] Measurement of Human herpesvirus 2 antibody [facility] Work Phone: Measurement of renal function [facility] MG Breast - bilateral Screening [facility] Patient referral [facility] Work Phone: Platelets [#/volume] in Blood [facility] Potassium measurement [facility] Red blood cell count [facility] Red cell distributio n width determination [facility] Serologic test for herpes simplex [facility] Work Phone: Serum chloride measurement [facility] Sodium measurement [facility] T4 free measurement [facility] T4 free measurement [facility] T4 free measurement [facility] Thyroid stimulating hormone measurement [facility] Thyroid stimulating hormone measurement [facility] Thyroid stimulating immunoglobulins actual/normal in Serum [facility] Total protein measurement [facility] Trichomonas vaginali s rRNA [Presence] in Genital specimen by Probe [facility] Work Phone: Triiodothyronine, free measurement [facility] Triiodothyronine, free measurement [facility] Triiodothyronine, free measurement [facility] Urea nitrogen [Mass/ volume] in Serum or Plasma [facility] Vitamin D, 25-hydroxy measurement [facility] Immunizations Immunization Date Immunization Notes Care Provider Fa rickie 04-14-2023 influenza, injectabl e, quadrivalent, preservative free Dr. Milagros Andrew Work Phone: [facility] 03-16-2023 Covid (Spikevax) Dr. Milagros Andrew Work Phone: [facility] 03-31-2022 influenza, injectabl e, quadrivalent, preservative free Dr. Milagros Andrew Work Phone: [facility] 03-31-2022 influenza, seasonal, injectable Dr. Laura Boswell Work Phone: [facility] 12-17-2021 tetanus toxoid, redu chelsae diphtheria toxoid, and acellular pertussis vaccine, adsorbed Dr. Laura Boswell Work Phone: [facility] 05-21-2021 Covid (Pfizer) Dr. Laura coyne Work Phone: [facility] 09-08-2020 Covid (Pfizer) Dr. Laura coyne Work Phone: [facility] 08-14-2020 Covid (Pfizer) Dr. Laura coyne Work Phone: [facility] Payers Date Payer Category Payer Self-pay [id number] 2023 Unknown [id number] Unknown [id number] [id number] Unknown [id number] [id number] [id number] Unknown [id number] 2.16.8 [id number] Unknown [id number] 2.16.8 [id number] Unknown [id number] 2.16.8 [id number] Unknown [id number] 2.16.8 [id number] Unknown [id number] 2.16.8 [id number] Unknown [id number] 2.16.8 [id number] Unknown [id number] 2.16.8 [id number] Unknown [id number] 2.16.8 [id number] Social History Date Type Detail Facility Start: 09-11-2021 End: 05-06-2023 Tobacco smoking status NHIS Unknown if ever smoked [facility] Start: 1955 Sex Assigned At Female [facility] Start: 10-13-2023 End: 11-20-2024 Tobacco smoking status NHIS Never smoked tobacco (finding) [facility] Start: 08-20-2024 End: 09-03-2024 Sex Female (finding) [facility] Goals Date Patient Goal Desired Activity /State Functional Status Date Assessment Result Facility 12-29-2022 Functional status Ambulates [facility] Work Phone: Mental Status Date Assessment Result Facility 06-15-2023 Cognitive function Awake;Alert;A ppropriate;Fol lows Commands [facility] Work Phone: 12-29-2022 Cognitive function Voice/Name [facility] Work Phone: Clinical Notes 08-11-2024 to 09-07-2024 Note Date & Type Note Facility 09-07-2024 Evaluation note Diagnosis Onset Date Resolution Essential hypertension chronic Ap 2024 10:21am Hyperthyroidism chronic September 10:21am Osteoporosis chronic September 07, 025 10:21am Anxiety and depression chronic Ju ne 2024 10:15am Essential hypertension chronic Ju ne 2024 10:15am Hyperthyroidism chronic November 10:15am Osteoporosis chronic November 20, 025 10:15am Vaginal dryness noneactive November 10:15am Cough variant asthma noneactive November 20, 2024 10:15am [facility] Work Phone: 1(652) 909-135404-03-2025 Evaluation note* Diagnosis Onset Date Resolution Status Admit Date Essential hypertension chronic Ap 2024 10:21am Hyperthyroidism chronic September 10:21am Osteoporosis chronic September 07, 2 025 10:21am Anxiety and depression chronic Ju ne 2024 10:15am Essential hypertension chronic Ju ne 2024 10:15am Hyperthyroidism chronic November 10:15am Osteoporosis chronic November 20, 025 10:15am Annual wellness visit noneactive Nov 10:15am Vaginal dryness noneactive November 10:15am Cough variant asthma noneactive November 20, 2024 10:15am [facility] Work Phone: [phone]) 851-461603-07-2025 Radiology Diagnostic study note [facility] Imaging Services [address] [place], [place] [address] Breast Limited Unilateral MR#: [id number] Acct: [id number] Name: MANOHAR VILLAFANA LU Rep #: [id number] : [id number] F 69 From: Sophy Parks MD PCP: Dr. Milagros Andrew MD Status: REG CLI Study:Breast Limited Unilateral Date of Exam: 08/11/24 Exam# [id number] Ordering Dr: Milagros Andrew MD PROCEDURE: BREAST LIMITED UNILATERAL REASON FOR EXAM: 69-year-old female presents for follow-up of the right breast findings seen on the mammogram of 08/09/2024. Family history of breast cancer in her mother in her 50s and maternal aunt in her 60s TECHNIQUE: Targeted right breast ultrasound. COMPARISON: Mammogram 08/09/2024 FINDINGS: RIGHT: Follow-up examination performed further right breast mass visualized on the examination of 08/09/2024. Ultrasound of the right breast demonstrates a 0.4 x 0.3 x 0.2 cm cyst in the right retroareolar region, which is inappropriate correlate for the mammographic finding. Otherwise, there are some mildly dilated ducts in the retroareolar region without evidence of intraductal mass. There are no suspicious sonographic findings. US/Breast Limited Unilateral IMPRESSION: Cyst in the retroareolar right breast is benign. There are no suspicious sonographic findings. BI-RADS 2: BENIGN. RECOMMEND ANNUAL MAMMOGRAPHIC SCREENING. Follow-up code: Routine Follow-up Reading Location: [id number] CC: Dr. Milagros Andrew MD ~ Consular Officer: [facility] Diagnosis Onset Date Resolution Status Anxiety and depression chron ic Hypertension chronic Anxiety and depression chron ic Hypertension chronic Anxiety and depression chron ic Hypertension chronic Anxiety and depression chron ic Hypertension chronic [facility] Work Phone: Evaluation note* Diagnosis Onset Date Resolution Status Anxiety and depression chron ic Hypertension chronic Anxiety and depression chron ic Hypertension chronic Anxiety and depression chron ic Hypertension [facility] Work Phone: Evaluation note* Diagnosis Onset Date Resolution Status Anxiety and depression chron ic Diastolic dysfunction noneac tive Low TSH level noneactive Abnormal EKG acute Chest pain, unspecified acut e Essential hypertension acute Palpitations acute [facility] Work Phone: Evaluation note* Diagnosis Onset Date Resolution Status Anxiety and depression chron ic Diastolic dysfunction noneac tive Low TSH level noneactive Abnormal EKG acute Chest pain, unspecified acut e Essential hypertension acute Palpitations acute Essential hypertension acute Palpitations acute Anxiety and depression chron ic Exposure to STD noneactive [facility] Work Phone: Evaluation note* Diagnosis Onset Date Resolution Status Abnormal EKG acute Chest pain, unspecified acut e Essential hypertension acute Palpitations acute Essential hypertension acute Palpitations acute Anxiety and depression chron ic Exposure to STD noneactive Skin abrasion acute Diverticulitis acute Nausea and vomiting noneacti ve Diarrhea acute [facility] Work Phone: Evaluation note* Diagnosis Onset Date Resolution Status Essential hypertension acute Anxiety and depression chron ic C. difficile colitis resolve d Upper respiratory infection noneactive [facility] Work Phone: Evaluation note* Diagnosis Onset Date Resolution Status Anxiety and depression chron ic Essential hypertension chron ic C. difficile colitis resolve d Upper respiratory infection noneactive Anxiety and depression chron ic Asthma chronic Essential hypertension chron ic Preventative health care non eactive Osteoporosis noneactive [facility] Work Phone: Evaluation note* Diagnosis Onset Date Resolution Status Upper respiratory infection noneactive Anxiety and depression chron ic Asthma chronic Essential hypertension chron ic Preventative health care non eactive Osteoporosis noneactive [facility] Work Phone: Evaluation note* Diagnosis Onset Date Resolution Status Osteoporosis acute Anxiety and depression chron ic Essential hypertension chron ic Immunization declined noneac tive Establishing care with new doctor, encounter for noneactive Cough variant asthma noneact freddie Abnormal EKG acute Essential hypertension chron ic Anxiety and depression chron ic Generalized abdominal pain n oneactive [facility] Work Phone: Evaluation note* Diagnosis Onset Date Resolution Status Osteoporosis acute Anxiety and depression chron ic Essential hypertension chron ic Immunization declined noneac tive Establishing care with new doctor, encounter for noneactive Cough variant asthma noneact freddie Abnormal EKG acute Essential hypertension chron ic Anxiety and depression chron ic Generalized abdominal pain n oneactive Bright red blood per rectum acute Occult blood positive stool acute Nausea & vomiting resolved Bright red blood per rectum acute Anxiety and depression chron ic Nausea & vomiting resolved UTI (urinary tract infection) noneactive Elevated glucose noneactive Cough noneactive Hospital discharge follow-up noneactive Hypokalemia noneactive [facility] Work Phone: Evaluation note* Diagnosis Onset Date Resolution Status Osteoporosis acute Anxiety and depression chron ic Essential hypertension chron ic Immunization declined noneac tive Establishing care with new doctor, encounter for noneactive Cough variant asthma noneact freddie Abnormal EKG acute Essential hypertension chron ic Anxiety and depression chron ic Generalized abdominal pain n oneactive Bright red blood per rectum acute Occult blood positive stool acute Nausea & vomiting resolved Bright red blood per rectum acute Anxiety and depression chron ic Nausea & vomiting resolved UTI (urinary tract infection) noneactive Elevated glucose noneactive Cough noneactive Hospital discharge follow-up noneactive Hypokalemia noneactive Anxiety and depression chron ic Right leg swelling noneactiv e Hoarseness noneactive Shakiness noneactive Hyperthyroidism acute [facility] Work Phone: Evaluation note* Diagnosis Onset Date Resolution Status Abnormal EKG acute Essential hypertension chron ic Anxiety and depression chron ic Generalized abdominal pain n oneactive Bright red blood per rectum acute Occult blood positive stool acute Nausea & vomiting resolved Bright red blood per rectum acute Anxiety and depression chron ic Nausea & vomiting resolved UTI (urinary tract infection) noneactive Elevated glucose noneactive Cough noneactive Hospital discharge follow-up noneactive Hypokalemia noneactive Anxiety and depression chron ic Right leg swelling noneactiv e Hoarseness noneactive Shakiness noneactive Hyperthyroidism acute [facility] Work Phone: Evaluation note* Diagnosis Onset Date Resolution Status Bright red blood per rectum acute Occult blood positive stool acute Nausea & vomiting resolved Bright red blood per rectum acute Anxiety and depression chron ic Nausea & vomiting resolved UTI (urinary tract infection) noneactive Elevated glucose noneactive Cough noneactive Hospital discharge follow-up noneactive Hypokalemia noneactive Anxiety and depression chron ic Right leg swelling noneactiv e Hoarseness noneactive Shakiness noneactive Hyperthyroidism acute [facility] Work Phone: Evaluation note* Diagnosis Onset Date Resolution Status Anxiety and depression chron ic Right leg swelling noneactiv e Hoarseness noneactive Shakiness noneactive Hyperthyroidism chronic Anxiety and depression chron ic Essential hypertension chron ic Hyperthyroidism chronic Osteoporosis chronic Immunization due noneactive Encounter for hearing evaluation noneactive Cough variant asthma noneact freddie Hyperthyroidism chronic Osteoporosis [facility] Work Phone: Evaluation note* Diagnosis Onset Date Resolution Status Anxiety and depression chron ic Essential hypertension chron ic Hyperthyroidism chronic Osteoporosis chronic Immunization due noneactive Encounter for hearing evaluation noneactive Cough variant asthma noneact freddie Hyperthyroidism chronic Osteoporosis [facility] Work Phone: Evaluation noteNo assessment information available [facility] Work Phone: Reason for referral (narrative)No reason for referral information available[facility]: Chief Complaint and Reason for Visit Chief Complaint sleep 2-3 WK F/UP 3wk f/u SCREENING/OSTEO Anxiety disorder, unspecified Anxiety disorder, unspecified HYPERTENSION 3 M FU Reason for Visit Anxiety and depressi on Hypertension Anxiety and depression Hypertension Anxiety and depression Hypertension Anxiety and depression Hypertension Chief Complaint 2-3 WK F/UP 3wk f/u SCREENING/OSTEO Anxiety disorder, unspecified Anxiety disorder, unspecified HYPERTENSION 3 M FU Reason for Visit Anxiety and depressi on Hypertension Anxiety and depression Hypertension Anxiety and depression Hypertension Chief Complaint Anxiety disorder, un specified Anxiety disorder, unspecified HYPERTENSION 3 M FU Amb Documentation ABN EKG/REF. CASSANDRA RONDONORON ABN EKG, CP ABN EKG, CP ABN EKG, CP Reason for Visit Anxiety and depressi on Diastolic dysfunction Low TSH level Abnormal EKG Chest pain, unspecified Essential hypertension Palpitations Chief Complaint Anxiety disorder, un specified Anxiety disorder, unspecified HYPERTENSION 3 M FU Amb Documentation ABN EKG/REF. CASSANDRA MCGORON ABN EKG, CP ABN EKG, CP ABN EKG, CP 2 M FU Reason for Visit Anxiety and depressi on Diastolic dysfunction Low TSH level Abnormal EKG Chest pain, unspecified Essential hypertension Palpitations Essential hypertension Palpitations Anxiety and depression Exposure to STD Chief Complaint Amb Documentation ABN EKG/REF. CASSANDRA MCGORON ABN EKG, CP ABN EKG, CP ABN EKG, CP 2 M FU DOG SCRATCH/BLEEDING possible diverticulitis Diaherra Reason for Visit Abnormal EKG Chest pain, unspecified Essential hypertension Palpitations Essential hypertension Palpitations Anxiety and depression Exposure to STD Skin abrasion Diverticulitis Nausea and vomiting Diarrhea Chief Complaint INT LABSPEC 4 M FU OSTEO OSTEO COVID/FLU SYMPTOMS Reason for Visit Essential hypertensi on Anxiety and depression C. difficile colitis Upper respiratory infection Chief Complaint 4 M FU OSTEO OSTEO COVID/FLU SYMPTOMS 3 M FU Reason for Visit Anxiety and depressi on Essential hypertension C. difficile colitis Upper respiratory infection Anxiety and depression Asthma Essential hypertension Preventative health care Osteoporosis Chief Complaint OSTEO OSTEO COVID/FLU SYMPTOMS 3 M FU SCREENING Reason for Visit Upper respiratory in fection Anxiety and depression Asthma Essential hypertension Preventative health care Osteoporosis Chief Complaint EST CARE - PRIOR SUMAYA ENGEL PT 1 Y FU PAIN IN LOWER LEFT SIDE, NO APPETITE, DIARRHEA XRAY Reason for Visit Osteoporosis Anxiety and depression Essential hypertension Immunization declined Establishing care with new doctor, encounter for Cough variant asthma Abnormal EKG Essential hypertension Anxiety and depression Generalized abdominal pain Chief Complaint EST CARE - PRIOR SUMAYA ENGEL PT 1 Y FU PAIN IN LOWER LEFT SIDE, NO APPETITE, DIARRHEA XRAY VIRAL SYNDROME, ELEVATED TROPONIN VIRAL SYNDROME, ELEVATED TROPONIN VIRAL SYNDROME, ELEVATED TROPONIN VIRAL SYNDROME, ELEVATED TROPONIN VIRAL SYNDROME, ELEVATED TROPONIN VIRAL SYNDROME, ELEVATED TROPONIN VIRAL SYNDROME, ELEVATED TROPONIN VIRAL SYNDROME, ELEVATED TROPONIN ACUTE [facility] FU Reason for Visit Osteoporosis Anxiety and depression Essential hypertension Immunization declined Establishing care with new doctor, encounter for Cough variant asthma Abnormal EKG Essential hypertension Anxiety and depression Generalized abdominal pain Bright red blood per rectum Occult blood positive stool Nausea & vomiting Bright red blood per rectum Anxiety and depression Nausea & vomiting UTI (urinary tract infection) Elevated glucose Cough Hospital discharge follow-up Hypokalemia Chief Complaint EST CARE - PRIOR RAC ANGLE PT 1 Y FU PAIN IN LOWER LEFT SIDE, NO APPETITE, DIARRHEA XRAY VIRAL SYNDROME, ELEVATED TROPONIN VIRAL SYNDROME, ELEVATED TROPONIN VIRAL SYNDROME, ELEVATED TROPONIN VIRAL SYNDROME, ELEVATED TROPONIN VIRAL SYNDROME, ELEVATED TROPONIN VIRAL SYNDROME, ELEVATED TROPONIN VIRAL SYNDROME, ELEVATED TROPONIN VIRAL SYNDROME, ELEVATED TROPONIN ACUTE [facility] FU FU FROM PREVIOUS VISIT-NOT GETTING BETTER Other specified soft tissue disorders Thyroid Reason for Visit Osteoporosis Anxiety and depression Essential hypertension Immunization declined Establishing care with new doctor, encounter for Cough variant asthma Abnormal EKG Essential hypertension Anxiety and depression Generalized abdominal pain Bright red blood per rectum Occult blood positive stool Nausea & vomiting Bright red blood per rectum Anxiety and depression Nausea & vomiting UTI (urinary tract infection) Elevated glucose Cough Hospital discharge follow-up Hypokalemia Anxiety and depression Right leg swelling Hoarseness Shakiness Hyperthyroidism Chief Complaint 1 Y FU PAIN IN LOWER LEFT SIDE, NO APPETITE, DIARRHEA XRAY VIRAL SYNDROME, ELEVATED TROPONIN VIRAL SYNDROME, ELEVATED TROPONIN VIRAL SYNDROME, ELEVATED TROPONIN VIRAL SYNDROME, ELEVATED TROPONIN VIRAL SYNDROME, ELEVATED TROPONIN VIRAL SYNDROME, ELEVATED TROPONIN VIRAL SYNDROME, ELEVATED TROPONIN VIRAL SYNDROME, ELEVATED TROPONIN ACUTE [facility] FU FU FROM PREVIOUS VISIT-NOT GETTING BETTER Other specified soft tissue disorders Thyroid INT LABS Reason for Visit Abnormal EKG Essential hypertension Anxiety and depression Generalized abdominal pain Bright red blood per rectum Occult blood positive stool Nausea & vomiting Bright red blood per rectum Anxiety and depression Nausea & vomiting UTI (urinary tract infection) Elevated glucose Cough Hospital discharge follow-up Hypokalemia Anxiety and depression Right leg swelling Hoarseness Shakiness Hyperthyroidism Chief Complaint VIRAL SYNDROME, ELEV ATED TROPONIN VIRAL SYNDROME, ELEVATED TROPONIN VIRAL SYNDROME, ELEVATED TROPONIN VIRAL SYNDROME, ELEVATED TROPONIN VIRAL SYNDROME, ELEVATED TROPONIN VIRAL SYNDROME, ELEVATED TROPONIN VIRAL SYNDROME, ELEVATED TROPONIN VIRAL SYNDROME, ELEVATED TROPONIN ACUTE [facility] FU FU FROM PREVIOUS VISIT-NOT GETTING BETTER Other specified soft tissue disorders Thyroid INT LABS EORDERS INT LABS Reason for Visit Bright red blood per rectum Occult blood positive stool Nausea & vomiting Bright red blood per rectum Anxiety and depression Nausea & vomiting UTI (urinary tract infection) Elevated glucose Cough Hospital discharge follow-up Hypokalemia Anxiety and depression Right leg swelling Hoarseness Shakiness Hyperthyroidism Chief Complaint FU FROM PREVIOUS VIS IT-NOT GETTING BETTER Other specified soft tissue disorders Thyroid INT LABS EORDERS INT LABS 6 M FU EORDERS 3 M FU Reason for Visit Anxiety and depressi on Right leg swelling Hoarseness Shakiness Hyperthyroidism Anxiety and depression Essential hypertension Hyperthyroidism Osteoporosis Immunization due Encounter for hearing evaluation Cough variant asthma Hyperthyroidism Osteoporosis Chief Complaint EORDERS INT LABS 6 M FU EORDERS 3 M FU Reclast Reason for Visit Anxiety and depressi on Essential hypertension Hyperthyroidism Osteoporosis Immunization due Encounter for hearing evaluation Cough variant asthma Hyperthyroidism Osteoporosis Chief Complaint INT LABS 6 M FU EORDERS 3 M FU Reclast Reason for Visit Anxiety and depressi on Essential hypertension Hyperthyroidism Osteoporosis Immunization due Encounter for hearing evaluation Cough variant asthma Hyperthyroidism Osteoporosis Chief Complaint INT LABS 6 M FU EORDERS 3 M FU Reclast SCREENING Reason for Visit Anxiety and depressi on Essential hypertension Hyperthyroidism Osteoporosis Immunization due Encounter for hearing evaluation Cough variant asthma Hyperthyroidism Osteoporosis Chief Complaint INT LABS EORDERS INT LABS 6 M FU EORDERS 3 M FU Reason for Visit Anxiety and depressi on Essential hypertension Hyperthyroidism Osteoporosis Immunization due Encounter for hearing evaluation Cough variant asthma Hyperthyroidism Osteoporosis Chief Complaint Admit Date RECLAST June 30, 2024 1 2:15pm SCREENING August 09, 2024 10:1 0am ABNORMAL BI August 11, 2024 10:5 5am Chief Complaint Admit Date RECLAST June 30, 2024 1 2:15pm SCREENING August 09, 2024 10:1 0am ABNORMAL BI August 11, 2024 10:5 5am INT LAB ORDERS August 30, 2024 2:3 3pm Chief Complaint Admit Date SCREENING August 09, 2024 10:1 0am ABNORMAL BI August 11, 2024 10:5 5am INT LAB ORDERS August 30, 2024 2:3 3pm 6 M FU September 07, 2024 10:2 1am PHYSICAL November 20, 2024 10:1 5am Reason for Visit Admit Date Essential hypertension September 07, 2024 1 0:21am Hyperthyroidism September 07, 2024 10:2 1am Osteoporosis September 07, 2024 10:2 1am Anxiety and depression November 20, 2024 1 0:15am Essential hypertension November 20, 2024 1 0:15am Hyperthyroidism November 20, 2024 10:1 5am Osteoporosis November 20, 2024 10:1 5am Vaginal dryness November 20, 2024 10:1 5am Cough variant asthma November 20, 2024 10: 15am Reason for Visit Admit Date Essential hypertension September 07, 2024 1 0:21am Hyperthyroidism September 07, 2024 10:2 1am Osteoporosis September 07, 2024 10:2 1am Anxiety and depression November 20, 2024 1 0:15am Essential hypertension November 20, 2024 1 0:15am Hyperthyroidism November 20, 2024 10:1 5am Osteoporosis November 20, 2024 10:1 5am Annual wellness visit November 20, 2024 10 :15am Vaginal dryness November 20, 2024 10:1 5am Cough variant asthma November 20, 2024 10: 15am Chief Complaint Admit Date INT LAB ORDERS August 30, 2024 2:3 3pm 6 M FU September 07, 2024 10:2 1am PHYSICAL November 20, 2024 10:1 5am BP CHECK December 14, 2024 2:50 pm Family History No Family History Records Found Relationship Condition Age at Onset Recorded Date/T antione father Asthma Unknown Myocardial infarction 49 Cardiac disease Unknown Hypertension Unknown Hyperlipidemia Unknown mother Malignant neoplasm of breast Unknown Malignant neoplasm Unknown Advance Directives No Advanced Directives Records Found Advance Directive Response Recorded Date/ Time Name of Medical Power of Bulk Sausage Casing Tier Off [place] luis carlosmattie (d aughtherb) December 26, 2022 10:48am Living Will Yes December 26, 2022 10:48am Power of Bulk Sausage Casing Tier Off Yes December 26 10:48am Advance Directive Response Recorded Date/ Time Living Will Yes January 18 2:28pm Power of Bulk Sausage Casing Tier Off Yes January 18, 2 023 2:28pm Name of Medical Power of Bulk Sausage Casing Tier Off [place] tse (d aughter) December 26, 2022 10:48am Advance Directive Response Recorded Date/ Time Living Will Yes January 18 1:28pm Power of Bulk Sausage Casing Tier Off Yes January 18, 2 023 1:28pm Name of Medical Power of Bulk Sausage Casing Tier Off [place] tse (d aughter) December 26, 2022 9:48am Advance Directive Response Recorded Date/ Time Living Will Yes January 18 1:28pm Power of Bulk Sausage Casing Tier Off Yes January 18, 2 023 1:28pm Advance Directive Response Recorded Date/ Time Living Will Yes January 18 2:28pm Do you have a Healthcare Power of Bulk Sausage Casing Tier Off? Yes January 18, 2023 2:28pm Summary Purpose Additional Source Comments Goals (unrecognized section and content) Goals may be documented in a n alternate sectionGoals may be documented in an alternate sectionGoals may be documented in an alternate sectionGoals may be documented in an alternate sectionGoals may be documented in an alternate sectionGoals may be documented in an alternate sectionGoals may be documented in an alternate sectionGoals may be documented in an alternate sectionGoals may be documented in an alternate sectionGoals may be documented in an alternate sectionGoals may be documented in an alternate sectionGoals may be documented in an alternate sectionGoals may be documented in an alternate sectionGoals may be documented in an alternate sectionGoals may be documented in an alternate sectionGoals may be documented in an alternate sectionGoals may be documented in an alternate sectionGoals may be documented in an alternate sectionGoals may be documented in an alternate sectionGoals may be documented in an alternate sectionGoals may be documented in an alternate sectionGoals may be documented in an alternate sectionGoals may be documented in an alternate sectionGoals may be documented in an alternate section Care Teams (unrecognized sec tion and content) Team Status: Active Member Role Status Dates Dr. Milagros Andrew MD Primary Care Provider Active Team Status: Inactive Member Role Status Dates Dr. Milagros Andrew MD Primary Care Pro vider, Attending Provider, Referring Provider Active Team Status: Inactive Member Role Status Dates Dr. Milagros Andrew MD Primary Care Provider, Referri ng Provider Active Dr. Chencho Dupree MD Attending Provider Active Team Status: Inactive Member Role Status Dates Dr. Milagros Andrew MD Primary Care Provider Active Dr. Chencho Dupree MD Attending Provider, Referring Provi eugenia Active Team Status: Active Member Role Status Dates Dr. Milagros Andrew MD Primary Care Provider Active Dr. Nya Grider MD Attending Provider Active Team Status: Active Member Role Status Dates Dr. Milagros Andrew MD Primary Care Provider Active Dr. Ector Brown , DO Emergency Provider Active Dr. Aneudy Santillan , DO Admit Provider, Attending Provider, Other Provider Active Team Status: Active Member Role Status Dates Dr. Milagros Andrew MD Primary Care Provider Active Dr. Ector Brown , DO Emergency Provider Active Dr. Aneudy Santillan , DO Admit Provider, Other Provide r Active Dr. Fausto Garcia MD Attending Provider, Other Provi eugenia Active Dr. Markos Burton MD Referring Provider Active Team Status: Active Member Role Status Dates Dr. Milagros Andrew MD Primary Care Provider Active Dr. Ector Brown DO Emergency Provider Active Dr. Aneudy Santillan , DO Admit Provider, Other Provide r Active Dr. Fausto Garcia MD Attending Provider, Other Provi eugenia Active Dr. Markos Burton MD Other Provider Active Team Status: Active Member Role Status Dates Dr. Milagros Andrew MD Primary Care Provider Active Dr. Ector Brown DO Emergency Provider Active Dr. Aneudy Santillan , DO Admit Provider, Other Provide r Active Dr. Fausto Garcia MD Other Provider Active Dr. Markos Burton MD Attending Provider, Other Provid er Active Team Status: Inactive Member Role Status Dates Dr. Milagros Andrew MD Primary Care Provider Active Dr. Ector Brown DO Emergency Provider Active Dr. Aneudy Santillan , DO Admit Provider, Other Provide r Active Dr. Fausto Garcia MD Other Provider Active Dr. Markos Burton MD Attending Provider Active Team Status: Inactive Member Role Status Dates Dr. Milagros Andrew MD Primary Care Provider, Attendi ng Provider Active Team Status: Active Member Role Status Dates ALFONZO La Primary Care Provider Active Team Status: Inactive Member Role Status Dates Dr. Laura Boswell MD Primary Care Provider, Referri ng Provider Active ALFONZO La Attending Provider Active Team Status: Inactive Member Role Status Dates ALFONZO La Primary Care Provid er, Attending Provider, Referring Provider Active Team Status: Inactive Member Role Status Dates ALFONZO La Primary Care Provider, Attending Provider Active Team Status: Inactive Member Role Status Dates Dr. Roman Mittal MD Active Darlene Sykes PA, PA Attending Provider Active Team Status: Inactive Member Role Status Dates Dr. Milagros Andrew MD Attending Provider Active Team Status: Inactive Member Role Status Dates Dr. Milagros Andrew MD Primary Care Provider Active Dr. Landen Christianson MD Attending Provider Active Team Status: Active Member Role Status Dates Dr. Milagros Andrew MD Primary Care Pro vider, Attending Provider, Referring Provider Active Team Status: Inactive Member Role Status Dates Dr. Milagros Andrew MD Primary Care Provider Active Dr. Chencho Dupree MD Attending Provider Active Team Status: Inactive Member Role Status Dates Dr. Milagros Andrew MD Primary Care Provider Active Start: June 30, 2024 End: June 30, 2024 Dr. Chencho Dupree MD Attending Provider Active Sta rt: June 30, 2024 End: June 30, 2024 Dr. Chencho Dupree MD Referring Provider Active Sta rt: June 30, 2024 End: June 30, 2024 Team Status: Inactive Member Role Status Dates Dr. Milagros Andrew MD Primary Care Provider Active Start: August 09, 2024 End: August 09, 2024 Dr. Kellie Martinez MD Attending Provider Active Start: August 09, 2024 End: August 09, 2024 Dr. Kellie Martinez MD Referring Provider Active Start: August 09, 2024 End: August 09, 2024 Team Status: Active Member Role Status Dates Dr. Milagros Andrew MD Primary Care Provider Active Start: August 11, 2024 Dr. Kellie Martinez MD Attending Provider Active Start: August 11, 2024 Dr. Kellie Martinez MD Referring Provider Active Start: August 11, 2024 Team Status: Inactive Member Role Status Dates Dr. Milagros Andrew MD Primary Care Provider Active Start: August 11, 2024 End: August 11, 2024 Dr. Kellie Martinez MD Attending Provider Active Start: August 11, 2024 End: August 11, 2024 Dr. Kellie Martinez MD Referring Provider Active Start: August 11, 2024 End: August 11, 2024 Team Status: Inactive Member Role Status Dates Dr. Milagros Andrew MD Primary Care Provider Active Start: August 30, 2024 End: August 30, 2024 Dr. Chencho Dupree MD Attending Provider Active Sta rt: August 30, 2024 End: August 30, 2024 Dr. Chencho Dupree MD Referring Provider Active Sta rt: August 30, 2024 End: August 30, 2024 Team Status: Inactive Member Role Status Dates Dr. Milagros Andrew MD Primary Care Provider Active Start: September 07, 2024 End: September 07, 2024 Dr. Milagros Andrew MD Referring Provider Active Start: September 07, 2024 End: September 07, 2024 Dr. Chencho Dupree MD Attending Provider Active Sta rt: September 07, 2024 End: September 07, 2024 Team Status: Inactive Member Role Status Dates Dr. Milagros Andrew MD Primary Care Provider Active Start: November 20, 2024 End: November 20, 2024 Dr. Milagros Andrew MD Attending Provider Active Start: November 20, 2024 End: November 20, 2024 Dr. Milagros Andrew MD Referring Provider Active Start: November 20, 2024 End: November 20, 2024 Team Status: Active Member Role Status Dates Dr. Milagros Andrew MD Primary Care Provider Active Start: November 20, 2024 Dr. Milagros Andrew MD Attending Provider Active Start: November 20, 2024 Dr. Milagros Andrew MD Referring Provider Active Start: November 20, 2024 Team Status: Active Member Role/Relationship Status Dates Dr. Milagros Andrew MD Primary Care Provider Active Team Status: Inactive Member Role/Relationship Status Dates Dr. Milagros Andrew MD Primary Care Provider Active Start: August 30, 2024 End: August 30, 2024 Dr. Chencho Dupree MD Attending Provider Active Sta rt: August 30, 2024 End: August 30, 2024 Dr. Chencho Dupree MD Referring Provider Active Sta rt: August 30, 2024 End: August 30, 2024 Team Status: Inactive Member Role/Relationship Status Dates Dr. Milagros Andrew MD Primary Care Provider Active Start: September 07, 2024 End: September 07, 2024 Dr. Milagros Andrew MD Referring Provider Active Start: September 07, 2024 End: September 07, 2024 Dr. Chencho Dupree MD Attending Provider Active Sta rt: September 07, 2024 End: September 07, 2024 Team Status: Inactive Member Role/Relationship Status Dates Dr. Milagros Andrew MD Primary Care Provider Active Start: November 20, 2024 End: November 20, 2024 Dr. Milagros Andrew MD Attending Provider Active Start: November 20, 2024 End: November 20, 2024 Dr. Milagros Andrew MD Referring Provider Active Start: November 20, 2024 End: November 20, 2024 Team Status: Inactive Member Role/Relationship Status Dates Dr. Milagros Andrew MD Primary Care Provider Active Start: November 20, 2024 End: November 20, 2024 Dr. Milagros Andrew MD Attending Provider Active Start: November 20, 2024 End: November 20, 2024 Dr. Milagros Andrew MD Referring Provider Active Start: November 20, 2024 End: November 20, 2024 Team Status: Inactive Member Role/Relationship Status Dates Dr. Milagros Andrew MD Primary Care Provider Active Start: December 14, 2024 End: December 14, 2024 Dr. Milagros Andrew MD Referring Provider Active Start: December 14, 2024 End: December 14, 2024 BIM NURSE Attending Provider Active Start: 2024 End: December 14, 2024 INFORMATION SOURCE (unrecogn ized section and content) DATE CREATED AUTHOR 12/23/2024 [facility] FOR RECORDS PERTAINING TO PATIENTS WHO ARE OR HAVE BEEN ENROLLED IN A CHEMICAL DEPENDENCY/SUBSTANCEABUSE PROGRAM, SOME INFORMATION MAY BE OMITTED. This clinical summary was aggregated from multiple sources. Caution should be exercised in using it in the provision of clinical care. This summary normalizes information from multiple sources, and as a consequence, information in this document may materially change the coding, format and clinical context of patient data. In addition, data may be omitted in some cases. CLINICAL DECISIONS SHOULD BE BASED ON THE PRIMARY CLINICAL RECORDS. [facility] [employer] provides no warranty or guarantee of the accuracy or completeness of information in this document.
[2025-03-02 16:43] LABS: AST(SGOT) 32 U/L (<=31); Alanine Aminotransfer ALT/SGPT 23 U/L (<=34); Albumin, Serum 4.6 g/dL (3.4-4.8); Alkaline Phosphatase 83 U/L (35-104); Anion Gap 12 (5-15); BUN 15 mg/dL (4-19); BUN/Creat Ratio 20.8 RATIO (10-20); Calcium,Total 9.4 mg/dL (7.6-11.0); Carbon Dioxide 24.6 mmol/L (21.0-32.0); Chloride 103 mmol/L (98-108); Free T3 2.6 pg/mL (2.18-3.98); Globulin 2.0 g/dL (2.2-4.2); Glucose 93 mg/dL (70-99); Potassium 4.0 mmol/L (3.3-5.1); Vitamin D,25 Hydroxy 31.4 ng/mL (30-100)
== END | disposition home or self-care (01) ==
LOC: LAB 14:51
PROVIDERS: PCP Internal Medicine; Referring Provider Internal Medicine Endocrinology, Diabetes & Metabolism; Visit Provider Internal Medicine Endocrinology, Diabetes & Metabolism
DX: E55.9 Vitamin D deficiency, unspecified (principal); E03.9 Hypothyroidism, unspecified; E05.90 Thyrotoxicosis, unspecified without thyrotoxic crisis or storm; M81.0 Age-related osteoporosis without current pathological fracture; I10 Essential (primary) hypertension
CPT/HCPCS: 36415; 80053; 82306; 84439; 84481

== ENCOUNTER → 2025-05-25 | Outpatient (CLI) | payer MEDICARE, SELFPAY ==
[2025-05-25 15:15] LABS: AST(SGOT) 28 U/L (<=31); Alanine Aminotransfer ALT/SGPT 23 U/L (<=34); Albumin, Serum 4.6 g/dL (3.4-4.8); Alkaline Phosphatase 90 U/L (35-104); Anion Gap 12 (5-15); BUN 18 mg/dL (4-19); BUN/Creat Ratio 21.5 RATIO (10-20); Calcium,Total 9.4 mg/dL (7.6-11.0); Carbon Dioxide 27.8 mmol/L (21.0-32.0); Chloride 102 mmol/L (98-108); Free T3 2.8 pg/mL (2.18-3.98); Globulin 2.2 g/dL (2.2-4.2); Glucose 134 mg/dL (70-99); Potassium 3.5 mmol/L (3.3-5.1); Vitamin D,25 Hydroxy 34.9 ng/mL (30-100)
== END | disposition home or self-care (01) ==
LOC: LAB 14:19
PROVIDERS: PCP Internal Medicine; Referring Provider Internal Medicine Endocrinology, Diabetes & Metabolism; Visit Provider Internal Medicine Endocrinology, Diabetes & Metabolism
DX: I10 Essential (primary) hypertension (principal); E03.9 Hypothyroidism, unspecified; E05.90 Thyrotoxicosis, unspecified without thyrotoxic crisis or storm; E55.9 Vitamin D deficiency, unspecified; M81.0 Age-related osteoporosis without current pathological fracture
CPT/HCPCS: 36415; 80053; 82306; 84439; 84443; 84481